=== PATIENT | male | born 1945 | race Caucasian/White ===

== ENCOUNTER → 2020-01-10 14:31 | Outpatient (BNVA) | payer MEDICARE, OTHER, SELFPAY | PROVIDERS: PCP Internal Medicine Hematology & Oncology; Visit Provider Urology | DX: N52.9 Male erectile dysfunction, unspecified (principal); C61 Malignant neoplasm of prostate | CPT/HCPCS: 81002; 99212 ==

== ENCOUNTER → 2021-01-10 14:39 | Outpatient (BNVA) | payer MEDICARE, OTHER, SELFPAY | PROVIDERS: PCP Internal Medicine Hematology & Oncology; Visit Provider Urology | DX: N52.9 Male erectile dysfunction, unspecified (principal); C61 Malignant neoplasm of prostate | CPT/HCPCS: Q3014 ==

== ENCOUNTER → 2022-01-07 14:05 | Outpatient (BNVA) | payer MEDICARE, OTHER, SELFPAY | PROVIDERS: PCP Internal Medicine Hematology & Oncology; Visit Provider Urology | DX: C61 Malignant neoplasm of prostate (principal); N52.9 Male erectile dysfunction, unspecified | CPT/HCPCS: 99212 ==

== ENCOUNTER 2024-10-18 13:44 | Outpatient (AMB) | payer MEDICARE, OTHER, SELFPAY ==
--- OUTSIDE RECORDS SUMMARY | 2023-11-03 11:00 | XMS_ITS | Encounter Summary ---
Author Name [facility] [place] Organization [facility] [place] [place] Address [address] [place] [address] Care Team Providers Care Back Winder Name Role Phone SANDY NAVA Primary Care Provider Unavailjose e Insurance Providers: All historical and current Section Date Range: From patient's date of to the date document was created. This section includes the names of all active insurance providers for the patient. Insurance Provider Type of Coverage Plan Name Start of Policy Coverage End of Policy Coverage Group Number Member ID Insurance Provider's Telephone Number Policy Chua's Name Patient's Relationship to Policy Chua [employer] MEDICARE SUPPLEMEN [facility] Feb 22, 2010 [id number] ANASTASIA LEMOS PATIENT [employer] MED[employer]ARE SUPPLEMEN PRACHI [facility] Feb 22, 2010 [id number] ANASTASIA LEMOS PATIENT SAVE RX PRESCRIPT ION [facility] Mar 25, 2012 [id number] ANASTASIA LEMOS PATIENT Selected Encounter This section includes the information on record at [place] for the Encounter. Date/Time Encounter Type Encounter Description Reason Provider Source Nov 03, 2023 03:00 PM OFFICE O/P EST LOW 20 MIN PODIATRY ICD-10-CM L60.0 Ingrowing JUSTINE Cooper IHJazmin Encounter Template Text not used by VA Assessments - Encounter Diagnoses This section includes the primary and secondary diagnoses documented for the Encounter. Date/Time Primary/Secondary Diagnosis Diagnosis Name Provider Source Nov 03, 2023 03:19 PM PRIMARY Ingrowing nail JUSTINE ALLRED [place] Nov 03, 2023 03:19 PM SECONDARY Pain in left toe(s) JUSTINE ALLRED [place] Nov 03, 2023 03:19 PM SECONDARY Pain in right toe(s) JUSTINE ALLRED [place] Nov 03, 2023 03:19 PM SECONDARY Type 2 diabetes w diabetic peripheral angiopath w/o gangrene JUSTINE ALLRED [place] Plan of Treatment: Future Appointments (+ 6 months) and Future Tests (+/- 45 days) The Plan of Treatment section includes future care activities for the patient from [facility]. This section includes future appointments and future orders which are active, pending or scheduled. Future Appointments This section includes appointments that were scheduled to occur 6 months from the date of the Encounter, up to a maximum of 20 appointments. The data comes from all [facility] facilities. Appointment Date/Time Appointment Type Appointme nt Facility Name Nov 23, 2023 02:30 PM AMBULATORY - PSYCHIATRY [facility] Dec 21, 2023 02:50 PM AMBULATORY - MEDICINE [facility] Dec 22, 2023 03:30 PM AMBULATORY - MEDICINE [facility] Feb 09, 2024 10:30 AM AMBULATORY - MEDICINE [facility] Feb 18, 2024 01:00 PM AMBULATORY - PSYCHIATRY [facility] Feb 28, 2024 02:00 PM AMBULATORY MEDICINE [facility] Apr 04, 2024 01:30 PM AMBULATORY - MEDICINE [facility] Social History: Smoking Status (Most current) and Tobacco Use (All prior to encounter date) This section includes the most current, and the historical, smoking and tobacco- related health factors from the [place] facility where the Encounter took place. Current Smoking Status This section includes the most current smoking, or tobacco-related health factor, from the [place] facility where the Encounter took place. Date/Time Current Smoking Status Comment Sarahy watson May 26, 2023 02:00 PM VA-TOBACCO FORMER USER [place] Tobacco Use History This section includes a history of the smoking, or tobacco-related health factors, that were collected on or before the date of the Encounter. The data comes from the [place] facility where the Encounter took place. Date/Time Smoking Status/Tobacco Use Comment F acility May 26, 2023 02:00 PM VA-TOBACCO QUIT 15 YRS OR MORE [facility] Apr 01, 2022 03:30 PM VA-TOBACCO FORMER USER [place] Apr 01, 2022 03:30 PM VA-TOBACCO QUIT 15 YRS OR MORE [place] Apr 04, 2021 02:00 PM VA-TOBACCO FORMER USER [place] Apr 04, 2021 02:00 PM VA-TOBACCO QUIT 15 YRS OR MORE [facility] Apr 04, 2020 02:30 PM VA-TOBACCO FORMER USER [place] Apr 04, 2020 02:30 PM VA-TOBACCO QUIT 15 YRS OR MORE [facility] Mar 06, 2019 02:44 PM VA-TOBACCO FORMER USER [place] Mar 06, 2019 02:44 PM VA-TOBACCO QUIT 15 YRS OR MORE [place] Sep 24, 2017 10:35 AM VA-TOBACCO FORMER USER [place] Sep 24, 2017 10:35 AM VA-TOBACCO QUIT 15 YRS OR MORE [place] Aug 30, 2017 03:05 PM QUIT TOBACCO USE > 7 YEARS AGO [place] June 29, 2016 08:41 AM QUIT TOBACCO USE > 7 YEARS AGO [place] July 10, 2015 01:03 PM QUIT TOBACCO USE > 7 YEARS AGO quit 23 years ago [facility] Apr 18, 2015 01:45 PM QUIT TOBACCO USE 1-7 YEARS AGO [facility] Encounter Notes: All associated encounter notes This section contains the clinical notes associated to the Encounter. Date/Time Encounter Note(s) Provider Source Nov 03, 2023 08:19 AM PODIATRY NOTE: LOCAL TITLE: PODIATRY NOTE STANDARD TITLE: PODIATRY NOTE DATE OF NOTE: NOV 03, 2023@08:19 ENTRY DATE: NOV 03, 2023@08:19:46 AUTHOR: JUSTINE ALLRED EXP COSIGNER: URGENCY: STATUS: COMPLETED PODIATRY NOTE Has ADDENDA WHEN I INQUIRE ABOUT COVID VACCINE HE DID NOT WISH TO REPLY IN THE AFFIRMATIVE TO HIS DESIRE TO ABSTAIN AND/OR RECEIVE IN THE FUTURE. LAST SEEN FOR TREATMENT: 08/09/2023 S: Pt. is a 78 yo alert WDWN CAUC MALE who IS SEEN for CONTINUED podiatric examination & CARE for treatment of a presenting complaint of painful ingrown toenails. PATIENT HAS BEEN SEEN PREVIOUSLY AT AN OUTSIDE PHYSICIANS OFFICE FOR SURGICAL REMOVAL OF THE MEDIAL & LATERAL LEFT HALLUX NAIL BORDERS WHICH HAVE RE-GROWN. HE DOES RELATE THAT A FEW YEARS AGO HE DOES RECALL TRAUMA TO THE NAIL WITH A HEAVY WEIGHT DROPPING ON THE TOE. Patient has been referred by: DR. NAVA Location of symptoms are: LEFT HALLUX Onset of symptoms has been several months due to this being a recurrent condition that has been exacerbating over the past few weeks. Duration of symptoms is daily with periods of exacerbation and remission. Description of symptoms is of an aching nature. Contributing factors are: shoes and increased activity. PMH: Active problems - Computerized Problem List is the source for the following: *NOTE: REVIEWED ABOVE NOTING NO CHANGES SINCE PREVIOUS VISIT *PLEASE SEE PROBLEM LIST TEMPLATE FOR COMPLETE LIST NEEDED. Family History: Non-contributory Social History: N/A *NOTE: DENIES ANY RECENT CHANGES IN MEDS UPON QUESTIONING TODAY-SEE RECONCILIATION PERFORMED THIS DATE BELOW TOBACCO USE = NONE Allergies:PENICILLIN Previous Surgery/Hospitalization: N/A *NOTE: A1C= 5.6 (LAST TAKEN: 09/2023) FBS= DNP RISK =2 HEIGHT:163.2 lb [74.2 kg] (10/30/2020 10:41) WEIGHT:70 in [177.8 cm] (11/25/2018 08:30) REVIEW OF SYSTEMS: DEFERRED BEING NON-CONTRIBUTORY TO THE CC & I HAVE REVIEWED THE PCP NOTES & PMH WELL. O: DERMATOLOGICAL: Exam reveals skin color & text to be WNL. Temp is diminished warm to cool proximal to distal. There is absence of hair noted. Nails are WNL OTHER THAN THE LEFT HALLUX WHICH REVEALS BOTH MEDIAL AND LATERAL NAIL BORDERS HAVE RECURRED IN A SEVERE INCURVATED POSITION and he has also requested care for all nails today. There are no superficial-painful hyperkeratotic lesions noted at this time. There are no rashes, ulcers, indurations or nodules noted. VASCULAR: Exam reveals DP pulses to be absent non-palpable bilateral & PT PULSES ARE +2 equal & symmetrical bilateral. CFT is >3 sec x 10. There are no superficial varices noted and there is no edema noted. MUSCULOSKELETAL: Exam reveals muscle strength and tone to be equal & symmetrical bilaterally & WNL for an individual of this age and present physical-medical condition. There is pain free ROM at all joints distal to and including the ankle. THERE ARE NO APPARENT BONY ABNORMALITIES NOTED AT THIS TIME. NEUROLOGICAL: Exam reveals S/D, vibratory, light touch & proprioception sensations to be equal & symmetrical bilaterally & diminished for an individual of this age and present physical-medical status. Protective sensation utilizing a Hancock-Pablo lOg monofilament is 10/10 bilateral. 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 P: Treatment consists of TRIMMING-reduction of all nails via manual & electric means with excision of the offending nail borders and CURETTING THE NAIL GROOVES AND HE REMAINS VERY PLEASED WITH THE END RESULT AND IS PLEASED TO BE SEEN FOR FOLLOW-UP CARE. All care rendered without complications & the patient is progressing well after podiatric care this date and will be scheduled for periodic podiatric care in an attempt to prevent future complications. Treatment by a non-professional could be extremely hazardous to the patient's wellbeing due to the underlying medical conditions. RTC:( 12/21 @3:30pm )will be away in february and would liek a special appt late january *DISCUSSED NEW PROTOCOLS AND CALLED LEV TODAY FOR RESCHEDULING I DISCUSSED THE FINDINGS & PLAN WITH PATIENT (UNCHANGED SINCE PREVIOUS VISIT) & PATIENT AGREES AND UNDERSTANDS PLAN-RECEIVED MIRROR Medication Reconciliation: PERFORMED TODAY - SEE BELOW. Outpatient: Has the patient been taking medications as documented in the EMLR? YES: The patient has been taking medications as documented in the EMLR. Essential Medication List for Review used to complete this medication reconciliation. INCLUDED IN THIS LIST: Alphabetical list of active outpatient prescriptions dispensed from this [place] (local) and dispensed from another [place] or [facility]D facility (remote) as well as inpatient orders (local, pending and active), local clinic medications, locally documented non-VA medications, and local prescriptions that have or been discontinued in the past 90 days. - All changes in medications, including all non-VA/Herbal/OTC medications were entered into CPRS. - If there were any medications the patient should no longer take, they were discontinued. - The patient/caregiver was instructed to update this list, discard old lists, and take this list to the next appointment, whether with a VA or non-VA provider. JLV Link Data on this list may not be complete. Please check JLV. Allergies/ADRs (Tool #5) FACILITY ALLERGY/ADR -------- No Remote Allergy/ADR Data available for this patient [place] CNT [facility] PENICILLIN Med Recon [facility] (Tool #1) INCLUDED IN THIS LIST: Alphabetical list of active outpatient prescriptions dispensed from this [place] (local) and dispensed from another [place] or [facility] facility (remote) as well as inpatient orders (local pending and active), local clinic medications, locally documented non-VA medications, and local prescriptions that have or been discontinued in the past 90 days. Non-VA Meds Last Documented On: Apr 26, 2014 NOTE The display of VA prescriptions dispensed from another [place] or [facility] facility (remote) is limited to active outpatient prescription entries matched to National Drug File at the originating site and may not include some items such as investigational drugs, compounds, etc. NOT INCLUDED IN THIS LIST: Medications self-entered by the patient into personal health records (i.e. [employer]) are NOT included in this list. Non-VA medications documented outside this [place], remote inpatient orders (regardless of status) and remote clinic medications are NOT included in this list. The patient and provider must always discuss medications the patient is taking, regardless of where the medication was dispensed or obtained. OUTPT CARBAMIDE PEROXIDE 6.5% OTIC SOLN (Status = ) INSTILL 5 DROPS INTO THE AFFECTED EAR(S) ONCE DAILY FOR EAR WAX BLOCKAGE USE FOR 5 DAYS Rx# [id number] Last Released: 05/21/23 Qty/Days Supply: Rx Expiration Date: 08/15/23 Refills Remainin Indication: FOR EAR WAX BLOCKAGE OUTPT SERTRALINE HCL 100MG TAB (Status = Active) TAKE ONE AND ONE-HALF TABLETS BY MOUTH ONCE DAILY FOR PTSD AND DEPRESSION Rx# [id number] Last Released: 10/20/23 Qty/Days Supply: Rx Expiration Date: 03/30/24 Refills Remainin Indication: FOR POSTTRAUMATIC STRESS SYNDROME OUTPT TRAZODONE HCL 50MG TAB (Status = Active) TAKE ONE AND ONE-HALF TABLETS BY MOUTH AT BEDTIME NEEDED FOR INSOMNIA Rx# [id number] Last Released: 10/20/23 Qty/Days Supply: 45 Rx Expiration Date: 03/30/24 Refills Remainin SUPPLIES /mike/ JUSTINE ALLRED DPM [employer] Signed: 11/03/2023 15:20 11/03/2023 ADDENDUM STATUS: COMPLETED future visits: 02/10-time to be determined -possible 2pm & 04/05/2024 time to be determined -usually 3:30pm /mike/ JUSTINE ALLRED DPM [employer] Signed: 11/03/2023 15:46 JUSTINE ALLRED [place]
--- OUTSIDE RECORDS SUMMARY | 2023-11-23 10:30 | XMS_ITS | Encounter Summary ---
Author Name [facility] [place] [place] Organization [place] Address [address] [place] [address] Care Team Providers Care Tire Spotter Name Role Phone SANDY NAVA Primary Care [...] Chua [employer] MEDICARE SUPPLEMEN [facility] Feb 22, 2010 [id number] ANASTASIA LEMOS PATIENT [employer] MEDICARE SUPPLEMEN PRACHI [facility] Feb 22, 2010 [id number] ANASTASIA LEMOS PATIENT SAVE RX PRESCRIPT ION [facility] Mar 25, 2012 [id number] ANASTASIA LEMOS PATIENT Selected Encounter This section includes the information on record at [place] for the Encounter. Date/Time Encounter Type Encounter Description Reason Provider Source Nov 23, 2023 02:30 PM OFFICE O/P EST MOD 30 MIN [facility] - IND ICD-10-CM F43.12 Post-traumatic stress disorder, chronic ARTI JALLOH [facility] Encounter Template Text not used by VA Assessments - Encounter Diagnoses This section includes the primary and secondary diagnoses documented for the Encounter. Date/Time Primary/Secondary Diagnosis Diagnosis Name Provider Source Nov 23, 2023 02:54 PM PRIMARY Post-traumatic stress disorder, chronic LOUISE JALLOH [place] Plan of Treatment: Future Appointments (+ 6 months) and Future Tests (+/- 45 days) The Plan of Treatment section includes future care activities for the patient [facility] [place] [facility] This section includes future appointments and future orders which are active, pending or scheduled. Future Appointments This section includes appointments that were scheduled to occur 6 months from the date of the Encounter, up to a maximum of 20 appointments. The data comes from all [place] treatment facilities. Appointment Date/Time Appointment Type Appointme nt Facility Name Dec 21, 2023 02:50 PM AMBULATORY - MEDICINE [facility] Dec 22, 2023 03:30 PM AMBULATORY - MEDICINE [facility] Feb 09, 2024 10:30 AM AMBULATORY - MEDICINE [facility] Feb 18, 2024 01:00 PM AMBULATORY - PSYCHIATRY [facility] Feb 28, 2024 02:00 PM AMBULATORY - MEDICINE [facility] Apr 04, 2024 01:30 PM [facility] Social History: Smoking Status (Most current) and Tobacco Use (All prior to encounter date) This section includes the most current, and the historical, smoking and tobacco- related health factors from the [place] facility where the Encounter took place. Current Smoking Status This section includes the most current smoking, or tobacco-related health factor, from the [place] facility where the Encounter took place. Date/Time Current Smoking Status Comment Sarahy watson May 26, 2023 02:00 PM VA-TOBACCO FORMER USER [place] Tobacco Use History This section includes a history of the smoking, or tobacco-related health factors, that were collected on or before the date of the Encounter. The data comes from the [place] facility where the Encounter took place. Date/Time Smoking Status/Tobacco Use Comment F acility May 26, 2023 02:00 PM VA-TOBACCO QUIT 15 YRS OR MORE [place] Apr 01, 2022 03:30 PM VA-TOBACCO FORMER USER [place] Apr 01, 2022 03:30 PM VA-TOBACCO QUIT 15 YRS OR MORE [place] Apr 04, 2021 02:00 PM VA-TOBACCO FORMER USER [place] Apr 04, 2021 02:00 PM VA-TOBACCO QUIT 15 YRS OR MORE [place] Apr 04, 2020 02:30 PM VA-TOBACCO FORMER USER [place] Apr 04, 2020 02:30 PM VA-TOBACCO QUIT 15 YRS OR MORE [place] Mar 06, 2019 02:44 PM VA-TOBACCO FORMER USER [place] Mar 06, 2019 02:44 PM VA-TOBACCO QUIT 15 YRS OR MORE [place] Sep 24, 2017 10:35 AM VA-TOBACCO FORMER USER [place] Sep 24, 2017 10:35 AM VA-TOBACCO QUIT 15 YRS OR MORE [place] Aug 30, 2017 03:05 PM QUIT TOBACCO USE > 7 YEARS AGO [place] June 29, 2016 08:41 AM QUIT TOBACCO USE > 7 YEARS AGO [place] July 10, 2015 01:03 PM QUIT TOBACCO USE > 7 YEARS AGO quit 23 years ago [place] Apr 18, 2015 01:45 PM QUIT TOBACCO USE 1-7 YEARS AGO [place] Encounter Notes: All associated encounter notes This section contains the clinical notes associated to the Encounter. Date/Time Encounter Note(s) Provider Source Nov 23, 2023 02:35 PM PSYCHIATRY NOTE: LOCAL TITLE: PSYCHIATRY NOTE STANDARD TITLE: PSYCHIATRY NOTE DATE OF NOTE: NOV 23, 2023@14:35 ENTRY DATE: NOV 23, 2023@14:35:46 AUTHOR: LOUISE JALLOH EXP COSIGNER: URGENCY: STATUS: COMPLETED 30 min for encounter, including chart review, interview, charting chart reviewed Pt stable, improved. Good mood. Denies depression. PTSD sx's/irritability improved. Affect brightens appropriately, full range. He denies SI and violent ideation. No h/o psychotic symptoms. Well organized. No paranoid or delusional content presented. Less obsessive quality. Future oriented. Cognitive exam grossly intact/unchanged. Good self-care. No slowing noted. Has interests, maintain home. Again, going to his home on a [place] in [facility]. Sleep remains improved w trazodone. again, another discussion -- pt again satisfied w response to current psych meds --he feels the meds allow significant improvement with mood and PTSD symptoms, and he again wants to continue the meds the same Denies med side effects. Denies next-day sedation. Reports compliance w psychiatric meds Denies alcohol abuse -- reports about [address] on [address]; denies street drugs; takes cbd oil Lives with his -- pt states she is generally supportive; pt keeps busy by working around the house -- enjoys this; he previously reported that he has informal Vet grp he meets with to talk regularly, wh he enjoys Active problems - Computerized Problem List is the source for the followin. Seborrheic Dermatitis (SCT 16509435) 2. Exsmoker 3. Full thickness rotator cuff tear 4. Colonoscopy Screening 5. Type 2 diabetes mellitus controlled by diet 6. Primary Care Physician 7. Insomnia 8. Erectile dysfunction (SNOMED CT 571522614) 9. Depression 10. Chronic post-traumatic stress disorder (SNOMED CT 900968753) 11. Hyperlipidemia 12. Skin Disorder-Psoriasis/Rosacea 13. History of alcohol abuse 14. Anxiety disorder (SNOMED CT 337477177) Active Outpatient Medications (including Supplies): Active Outpatient Medications Status ======= 1) SERTRALINE HCL 100MG TAB TAKE ONE AND ONE-HALF ACTIVE TABLETS BY MOUTH ONCE DAILY FOR PTSD AND DEPRESSION 2) TRAZODONE HCL 50MG TAB TAKE ONE AND ONE-HALF TABLETS ACTIVE BY MOUTH AT BEDTIME NEEDED FOR INSOMNIA PAST PSYCH MED HX: zoloft -- long period on this remeron -- did not tolerate effexor -- WRAY, N prazosin -- dizzy IMP: dsm-5 PTSD, chronic -- 100% sc Unspecified depressive disorder h/o alcohol use disorder -- reports limited use PLAN: Performed careful risk assessment. See C-SSRS 07/2023 - same today The pt is probably low risk for suicide or violence -- the patient denied suicidal and violent ideation, but the Veterans Crisis Line information and number were reviewed w patient as a precaution. The patient also understands to call 911 or to go to ER in the event of an emergency. encourage to [facility] -- for coping w stress, and for PTSD and anger management Previously offered pt anger managemnt grp in this clinic -- pt did not feel he need this We again reviewed the alcohol patient's alcohol use, which remains limited but increased compared to the last visit --I encouraged the patient to limit his alcohol use or abstain. I again offered the patient HUONG grp in clinic or the HUONG clinic but he does not feel he needs this; encourage AA/sponsor; pt also has HUONG grp available in [facility]; again, pt does not want to try naltrexone or campral -- he does not feel he needs these CONTINUE ZOLOFT 150 MG DAILY for ptsd/depression/anxiety -- good response and well tolerated; the patient did not want to consider different antidepressant trial to try to further reduce PTSD symptoms. He is satisfied with the response to Zoloft. CONTINUE TRAZODONE 75 MG QHS PRN INSOMNIA -- usually good response for sleep; patient understands he may take less, if he does not need the full dose; patient reports nightmares are much less frequent with trazodone consider prazosin for ptsd/nightmares--patient previously did not want to try prazosin again for nightmares due to getting dizzy w it in past -- although if he wants another trial he will call me The discussion with patient about treatments including medications involved shared decision making. The patient was educated about the rationale and plan for the psychiatric medications. Medication instructions were reviewed with the patient. Alternatives to treatment were discussed with the patient. The side effect profile of the psychiatric medications was reviewed with the patient. This also included discussion of potential drug interactions associated with psychiatric medication. The patient discussed/verbalized back the understanding of the medication, side effects, and the plan/instructions, and the patient asked good questions. The patient demonstrated reasonable understanding of the medication side effects and the above-mentioned issues. The benefits of psychiatric medications outweigh risks for this patient. The patient consents to medication treatment. I asked the patient to call me or to come to open access if the patient does not like the effect of psychiatric medication or if has side effects with psychiatric medication. The risk of priapism with trazodone was previously reviewed with the patient. See prior notes by me I previously reviewed the sleep-walking hx w pt -- I educated pt re this -- I advised the pt to make sleeping area safe in case sleep walks -- but previously on further review this behavior sounds more like related to nightmares, which are improved rtc 3 mo scheduled med review ; rtc sooner thr open access prn by calling; I also encouraged pt to call if needed pt previously declined alpha stim trial for anxiety/ptsd offered considering PTSD unit at some point - pt declines this Medication Reconciliation: Outpatient: Has the patient been taking medications as documented in the EMLR? YES: The patient has been taking medications as documented in the EMLR. Essential Medication List for Review used to complete this medication reconciliation. INCLUDED IN THIS LIST: Alphabetical list of active outpatient prescriptions dispensed from this VA (local) and dispensed from another VA or DoD facility (remote) as well as [...] whether with a VA or non-VA provider. Alcohol Use Screen (AUDIT-C): Alcohol Screen: SCREEN FOR ALCOHOL (AUDIT-C) An alcohol screening test (AUDIT-C) was negative (score=3). 1. How often did you have a drink containing alcohol in the past year? Consider a drink to be a 12 ounce can or bottle of regular beer, 8 ounces of malt liquor, a 5 ounce glass of table wine, or a 1.5 ounce shot of liquor (like scotch, gin, or vodka). Two to three times per week 2. How many drinks containing alcohol did you have on a typical day when you were drinking in the past year? One or two drinks 3. How often did you have six or more drinks on one occasion in the past year? Never /es/ LOUISE JALLOH MD STAFF PSYCHIATRIST Signed: 11/23/2023 14:54 LOUISE JALLOH
--- OUTSIDE RECORDS SUMMARY | 2023-12-22 11:30 | XMS_ITS | Encounter Summary ---
Author Name [facility] ([place] Organization [facility] [place] Address [address] [place] [address] Care Team Providers Care Ham Boner Name Role Phone SANDY NAVA Primary Care [...] Chua [employer] MED[employer] SUPPLEMEN [facility] Feb 22, 2010 [id number] ANASTASIA LEMOS PATIENT [employer] SUPPLEMEN PRACHI [facility] Feb 22, 2010 [id number] ANASTASIA LEMOS PATIENT SAVE RX PRESCRIPT ION [facility] Mar 25, 2012 [id number] ANASTASIA LEMOS PATIENT Selected Encounter This section includes the information on record at [place] for the Encounter. Date/Time Encounter Type Encounter Description Reason Provider Source Dec 22, 2023 03:30 PM OFFICE O/P EST LOW 20 MIN PODIATRY ICD-10-CM L60.0 Ingrowing nail JUSTINE ALLRED IHJazmin Encounter Template Text not used by VA Assessments - Encounter Diagnoses This section includes the primary and secondary diagnoses documented for the Encounter. Date/Time Primary/Secondary Diagnosis Diagnosis Name Provider Source Dec 22, 2023 04:18 PM PRIMARY Ingrowing nail JUSTINE ALLRED [place] Dec 22, 2023 04:18 PM SECONDARY Pain in left toe(s) JUSTINE ALLRED [place] Dec 22, 2023 04:18 PM SECONDARY Pain in right toe(s) JUSTINE ALLRED [place] Dec 22, 2023 04:18 PM SECONDARY Type 2 diabetes w diabetic peripheral angiopath w/o gangrene JUSTINE ALLRED [place] Plan of Treatment: Future Appointments (+ 6 months) and Future Tests (+/- 45 days) The Plan of Treatment section includes future care activities for the patient from all [facility] This section includes future appointments and future orders which are active, pending or scheduled. Future Appointments This section includes appointments that were scheduled to occur 6 months from the date of the Encounter, up to a maximum of 20 appointments. The data comes from all [facility]. Appointment Date/Time Appointment Type Appointme nt Facility Name Feb 09, 2024 10:30 AM AMBULATORY - MEDICINE [facility] Feb 18, 2024 01:00 PM AMBULATORY - PSYCHIATRY [facility] Feb 28, 2024 02:00 PM AMBULATORY - MEDICINE [facility] [place] [facility] Apr 04, 2024 01:30 PM AMBULATORY - MEDICINE [facility] May 26, 2024 11:30 AM AMBULATORY - PSYCHIATRY [facility] Jun 02, 2024 01:00 PM [facility] [place] [facility] Jun 07, 2024 08:00 AM AMBULATORY - MEDICINE [facility] [place] [facility] Jun 13, 2024 01:30 PM AMBULATORY - MEDICINE [facility] Jun 13, 2024 02:00 PM AMBULATORY - MEDICINE [facility] Social History: Smoking Status (Most current) and Tobacco Use (All prior to encounter date) This section includes the most current, and the historical, smoking and tobacco- related health factors from the [place] facility where the Encounter took place. Current Smoking Status This section includes the most current smoking, or tobacco-related health factor, from the [place] facility where the Encounter took place. Date/Time Current Smoking Status Mallory watson May 26, 2023 02:00 PM VA-TOBACCO FORMER USER [place] Tobacco Use History This section includes a history of the smoking, or tobacco-related health factors, that were collected on or before the date of the Encounter. The data comes from the [place] facility where the Encounter took place. Date/Time Smoking Status/Tobacco Use Comment F acility May 26, 2023 02:00 PM VA-TOBACCO QUIT 15 YRS OR MORE [place] Apr 01, 2022 03:30 PM VA-TOBACCO FORMER USER [place] Apr 01, 2022 03:30 PM VA-TOBACCO QUIT 15 YRS OR MORE [place] Apr 04, 2021 02:00 PM VA-TOBACCO FORMER USER [place] Apr 04, 2021 02:00 PM VA-TOBACCO QUIT 15 YRS OR MORE [place] Apr 04, 2020 02:30 PM VA-TOBACCO FORMER USER [place] Apr 04, 2020 02:30 PM VA-TOBACCO QUIT 15 YRS OR MORE [place] Mar 06, 2019 02:44 PM VA-TOBACCO FORMER USER [place] Mar 06, 2019 02:44 PM VA-TOBACCO QUIT 15 YRS OR MORE [place] Sep 24, 2017 10:35 AM VA-TOBACCO FORMER USER [place] Sep 24, 2017 10:35 AM VA-TOBACCO QUIT 15 YRS OR MORE [place] Aug 30, 2017 03:05 PM QUIT TOBACCO USE > 7 YEARS AGO [place] June 29, 2016 08:41 AM QUIT TOBACCO USE > 7 YEARS AGO [place] July 10, 2015 01:03 PM QUIT TOBACCO USE > 7 YEARS AGO quit 23 years ago [place] Apr 18, 2015 01:45 PM QUIT TOBACCO USE 1-7 YEARS AGO [place] Encounter Notes: All associated encounter notes This section contains the clinical notes associated to the Encounter. Date/Time Encounter Note(s) Provider Source Dec 22, 2023 11:28 AM PODIATRY NOTE: LOCAL TITLE: PODIATRY NOTE STANDARD TITLE: PODIATRY NOTE DATE OF NOTE: DEC 22, 2023@11:28 ENTRY DATE: DEC 22, 2023@11:28:24 AUTHOR: JUSTINE ALLRED EXP COSIGNER: URGENCY: STATUS: COMPLETED WHEN I INQUIRE ABOUT COVID VACCINE HE DID NOT WISH TO REPLY IN THE AFFIRMATIVE TO HIS DESIRE TO ABSTAIN AND/OR RECEIVE IN THE FUTURE. LAST SEEN FOR TREATMENT: 11/03/2023 S: Pt. is a 78 yo alert [...] present physical-medical status. Protective sensation utilizing a [place]-Pablo lOg monofilament is 10/10 bilateral. A: Clinical [...] due to the underlying medical conditions. RTC:( 02/08@ 10:30am & 04/04/@1:30pm * 06/07 ? ) *DISCUSSED NEW PROTOCOLS AND CALLED LEV TODAY FOR RESCHEDULING I DISCUSSED THE FINDINGS & PLAN WITH PATIENT (UNCHANGED SINCE PREVIOUS VISIT) & PATIENT AGREES AND UNDERSTANDS PLAN-RECEIVED MIRROR DISCUSSED THE CURRENT EVENTS AND HE INFORMED ME OF A PROBLEM WITH HALLOWEEN CVANDY THAT IS ACTUALLY AND EXPANDING PAPER TOWEL TO CAUSE CHOKING Medication Reconciliation: PERFORMED TODAY - SEE BELOW. Outpatient: Has the patient been taking medications as documented in the EMLR? YES: The patient has been taking medications as documented in the EMLR. Essential Medication List for Review used to complete this medication reconciliation. INCLUDED IN THIS LIST: Alphabetical list of active outpatient prescriptions dispensed from this VA (local) and dispensed from another [place] or DoD facility (remote) as well as [...] Remote Allergy/ADR Data available for this patient [place] [facility] [place] Med Recon [facility] (Tool #1) INCLUDED IN THIS LIST: Alphabetical list of active outpatient prescriptions dispensed from this ME (local) and dispensed from another [place] or DoD facility (remote) as well as inpatient orders (local pending and active), local clinic medications, locally documented non-VA medications, and local prescriptions that have or been discontinued in the past 90 days. Non-VA Meds Last Documented On: Apr 26, 2014 NOTE The display of VA prescriptions dispensed from another VA or DoD facility (remote) is limited to active outpatient prescription entries matched to National Drug File at the originating site and may not include some items such as investigational drugs, compounds, etc. NOT INCLUDED IN THIS LIST: Medications self-entered by the patient into personal health records (i.e. [employer]) are NOT included in this list. Non-VA medications documented outside this [place], remote inpatient orders (regardless of status) and [...] WAX BLOCKAGE USE FOR 5 DAYS Rx# [id number] Last Released: 05/21/23 Qty/Days Supply: Rx Expiration Date: 08/15/23 Refills Remainin Indication: FOR EAR WAX BLOCKAGE OUTPT SERTRALINE HCL 100MG TAB (Status = Active) TAKE ONE AND ONE-HALF TABLETS BY MOUTH ONCE DAILY FOR PTSD AND DEPRESSION Rx# [id number] Last Released: 10/20/23 Qty/Days Supply: Rx Expiration Date: 03/30/24 Refills Remainin Indication: FOR POSTTRAUMATIC STRESS SYNDROME OUTPT TRAZODONE HCL 50MG TAB (Status = Active) TAKE ONE AND ONE-HALF TABLETS BY MOUTH AT BEDTIME NEEDED FOR INSOMNIA Rx# [id number] Last Released: 10/20/23 Qty/Days Supply: Rx Expiration Date: 03/30/24 Refills Remainin SUPPLIES /mike/ JUSTINE ALLRED DPM PROGRESS DEVELOPER Signed: 11/03/2023 15:20 11/03/2023 ADDENDUM STATUS: COMPLETED future visits: 02/10-time to be determined -possible 2pm & 04/05/2024 time to be determined -usually 3:30pm /aby ALLRED DPM PROGRESS DEVELOPER Signed: 11/03/2023 15:46 /aby ALLRED DPM PROGRESS DEVELOPER Signed: 12/22/2023 16:19 JUSTINE ALLRED [place]
--- OUTSIDE RECORDS SUMMARY | 2024-02-09 06:30 | XMS_ITS | Encounter Summary ---
Author Name [facility] [place] Organization [place] Address [address] [place] [address] Care Team Providers Care Patrol Judge Name Role Phone SANDY NAVA Primary Care [...] Chua [employer] SUPPLEMEN PRACHI [facility] Feb 22, 2010 [id number] ANASTASIA LEMOS PATIENT [employer] SUPPLEMEN PRACHI [facility] Feb 22, 2010 [id number] 85 ANASTASIA LEMOS PATIENT SAVE RX PRESCRIPT ION [facility] Mar 25, 2012 [id number] 85 ANASTASIA LEMOS PATIENT Selected Encounter This section includes the information on record at [place] for the Encounter. Date/Time Encounter Type Encounter Description Reason Provider Source Feb 09, 2024 10:30 AM OFFICE O/P EST MOD 30 MIN PODIATRY ICD-10-CM L60.0 Ingrowing nail JUSTINE ALLRED IHJazmin Encounter Template Text not used by VA Assessments - Encounter Diagnoses This section includes the primary and secondary diagnoses documented for the Encounter. Date/Time Primary/Secondary Diagnosis Diagnosis Name Provider Source Feb 09, 2024 12:17 PM PRIMARY Ingrowing nail JUSTINE ALLRED [place] Feb 09, 2024 12:17 PM SECONDARY Pain in left toe(s) JUSTINE ALLRED Feb 09, 2024 12:17 PM SECONDARY Pain in right toe(s) JUSTINE ALLRED Plan of Treatment: Future Appointments (+ 6 months) and Future Tests (+/- 45 days) The Plan of Treatment section includes future care activities for the patient [facility] [place] [facility]. This section includes future appointments and future orders which are active, pending or scheduled. Future Appointments This section includes appointments that were scheduled to occur 6 months from the date of the Encounter, up to a maximum of 20 appointments. The data comes from all [facility] facilities. Appointment Date/Time Appointment Type Appointme nt Facility Name Feb 18, 2024 01:00 PM AMBULATORY - PSYCHIATRY [facility] Feb 28, 2024 02:00 PM AMBULATORY - MEDICINE [facility] [place] [facility] Apr 04, 2024 01:30 PM AMBULATORY - MEDICINE [facility] May 26, 2024 11:30 AM AMBULATORY - PSYCHIATRY [facility] Jun 02, 2024 01:00 PM AMBULATORY - REHAB MEDICIN E [place] [facility] Jun 07, 2024 08:00 AM AMBULATORY - MEDICINE CT C [place]TRL [place] [facility] Jun 13, 2024 01:30 PM AMBULATORY - MEDICINE [facility] Jun 13, 2024 02:00 PM AMBULATORY - MEDICINE [facility] June 27, 2024 02:50 PM AMBULATORY - MEDICINE CT C [place]TRL [place] [facility] June 29, 2024 01:00 PM AMBULATORY - REHAB MEDICIN E [place] [facility] Jul 25, 2024 03:00 PM [facility] Jul 27, 2024 01:00 PM AMBULAT[facility] - [facility] Social History: Smoking Status (Most current) and Tobacco Use (All prior to encounter date) This section includes the most current, and the historical, smoking and tobacco- related health factors from the [place] facility where the Encounter took place. Current Smoking Status This section includes the most current smoking, or tobacco-related health factor, from the [place] facility where the Encounter took place. Date/Time Current Smoking Status Comment Sarahy ity May 26, 2023 02:00 PM VA-TOBACCO FORMER USER [place] Tobacco Use History This section includes a history of the smoking, or tobacco-related health factors, that were collected on or before the date of the Encounter. The data comes from the [facility] where the Encounter took place. Date/Time Smoking Status/Tobacco Use Comment F acility May 26, 2023 02:00 PM VA-TOBACCO QUIT 15 YRS OR MORE [place] Apr 01, 2022 03:30 PM VA-TOBACCO FORMER USER [place] Apr 01, 2022 03:30 PM VA-TOBACCO QUIT 15 YRS OR MORE [place] Apr 04, 2021 02:00 PM VA-TOBACCO FORMER USER [place] Apr 04, 2021 02:00 PM VA-TOBACCO QUIT 15 YRS OR MORE [place] Apr 04, 2020 02:30 PM VA-TOBACCO FORMER USER [place] Apr 04, 2020 02:30 PM VA-TOBACCO QUIT 15 YRS OR MORE [place] Mar 06, 2019 02:44 PM VA-TOBACCO FORMER USER [place] Mar 06, 2019 02:44 PM VA-TOBACCO QUIT 15 YRS OR MORE [place] Sep 24, 2017 10:35 AM VA-TOBACCO FORMER USER [place] Sep 24, 2017 10:35 AM VA-TOBACCO QUIT 15 YRS OR MORE [place] Aug 30, 2017 03:05 PM QUIT TOBACCO USE > 7 YEARS AGO [place] June 29, 2016 08:41 AM QUIT TOBACCO USE > 7 YEARS AGO [place] July 10, 2015 01:03 PM QUIT TOBACCO USE > 7 YEARS AGO quit 23 years ago [place] Apr 18, 2015 01:45 PM QUIT TOBACCO USE 1-7 YEARS AGO [place] Encounter Notes: All associated encounter notes This section contains the clinical notes associated to the Encounter. Date/Time Encounter Note(s) Provider Source Feb 09, 2024 12:18 PM PODIATRY NOTE: LOCAL TITLE: PODIATRY PAVE FOOT EXAM STANDARD TITLE: PODIATRY NOTE DATE OF NOTE: FEB 09, 2024@12:18 ENTRY DATE: FEB 09, 2024@12:18:30 AUTHOR: JUSTINE ALLRED COSIGNER: URGENCY: STATUS: COMPLETED PAVE FOOT EXAM A foot risk level was completed. The following risk level was identified for this patient: +POD RISK SCORE+ * --LEVEL 1 - (LOW RISK)* Normal sensation and circulation EITHER foot deformity OR minor foot infection No ulceration, nor history of ulceration, osteomyelitis, or amputation No Charcot joint disease with foot deformity No chronic kidney disease, or less than CKD 4 LEVEL 1 FOOT EDUCATION: 1. Advised patient not to walk barefoot. Instructed the patient to pay close attention to the style and fit of shoes. 2. Explained the importance of daily foot checks. Explained that loss of sensation leads to callouses. Callouses break down, which result in ulcers that may lead to gangrene and amputation. 3. Stressed the importance of daily foot hygiene. Warm (not hot) bathing of the feet, complete drying and thorough inspection for changes in the condition of the skin constitute daily foot care. Demonstrated how to do a thorough foot check. 4. Emphasized the use of clean, non-restrictive socks/stockings and well fitting shoes. 5. Stressed the importance of immediate follow-up of any foot injuries or ulcers. Explained that he/she should be non-weight bearing whenever there are lesions on the foot, to prevent cellular damage. Level of Understanding: Good /mike/ JUSTINE ALLRED DPM PATTERN MECHANIC Signed: 02/09/2024 12:18 JUSTINE ALLRED [place] Feb 09, 2024 07:45 AM PODIATRY NOTE: LOCAL TITLE: PODIATRY NOTE STANDARD TITLE: PODIATRY NOTE DATE OF NOTE: FEB 09, 2024@07:45 ENTRY DATE: FEB 09, 2024@07:45:19 AUTHOR: JUSTINE ALLRED EXP COSIGNER: URGENCY: STATUS: COMPLETED WHEN I INQUIRE ABOUT COVID VACCINE HE DID NOT WISH TO REPLY IN THE AFFIRMATIVE TO HIS DESIRE TO ABSTAIN AND/OR RECEIVE IN THE FUTURE. LAST SEEN FOR TREATMENT: 12/22/2023 S: Pt. is a 78 yo alert [facility] MALE who IS SEEN for CONTINUED podiatric [...] present physical-medical status. Protective sensation utilizing a [place]-Pablo lOg monofilament is 10/10 bilateral. *NOTE: *YEARLY COMPLETE PAVE EXAM PERFORMED TODAY - SEE BELOW. 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 DESCRIBES A NEW AREA OF PAIN -DISTAL LEFT HALLUX NOT-RELATED TO THE NAIL PLATE AND UPON PALPATION NOTED DISCOMFORT BUT DUE TO LACK OF FAT PAD AND NOT THE NAIL: I PROVIDED A TUBE FOAM ACCOMMODATION FOR THIS SITE HE MAY BE INCURRING SHOE PRESSURE WHILE WALKING P: Treatment consists of TRIMMING-reduction of all [...] due to the underlying medical conditions. RTC:( 04/04 & 06/13 @1:30pm ) *DISCUSSED NEW PROTOCOLS AND CALLED LEV [...] this VA (local) and dispensed from another [place] or DoD facility (remote) as well as [...] Remote Allergy/ADR Data available for this patient [facility] [place] [place] [facility] [place] Med Recon [employer] (Tool #1) INCLUDED IN THIS LIST: Alphabetical [...] the patient into personal health records (i.e. [employer]) are NOT included in this list. Non-VA medications documented outside this [place], remote inpatient orders (regardless of status) and remote clinic medications are NOT included in this list. The patient and provider must always discuss medications the patient is taking, regardless of where the medication was dispensed or obtained. OUTPT SERTRALINE HCL 100MG TAB (Status = Active) TAKE ONE AND ONE-HALF TABLETS BY MOUTH ONCE DAILY FOR PTSD AND DEPRESSION Rx# [id number] Last Released: 10/20/23 Qty/Days Supply: [id number] Rx Expiration Date: 03/30/24 Refills Remainin Indication: FOR POSTTRAUMATIC STRESS SYNDROME OUTPT TRAZODONE HCL 50MG TAB (Status = Active) TAKE ONE AND ONE-HALF TABLETS BY MOUTH AT BEDTIME NEEDED FOR INSOMNIA Rx# [id number] Last Released: 10/20/23 Qty/Days Supply: [id number] Rx Expiration Date: 03/30/24 Refills Remainin SUPPLIES /mike/ JUSTINE ALLRED DPM PATTERN MECHANIC Signed: 02/09/2024 12:18 JUSTINE ALLREDFIELD
--- OUTSIDE RECORDS SUMMARY | 2024-02-18 09:00 | XMS_ITS | Encounter Summary ---
Author Name [facility] [place] Organization [facility] [place] [place] Address [address] [place] [address] Care Team Providers Care Field Crew Chief Name Role Phone SANDY NAVA Primary Care [...] Chua [employer] SUPPLEMEN [facility] Feb 22, 2010 NEEW [id number] ANASTASIA LEMOS PATIENT [employer] SUPPLEMEN PRACHI [facility] Feb 22, 2010 [id number] ANASTASIA LEMOS PATIENT SAVE RX PRESCRIPT ION [facility] Mar 25, 2012 [id number] ANASTASIA LEMOS PATIENT Selected Encounter This section includes the information on record at [place] for the Encounter. Date/Time Encounter Type Encounter Description Reason Provider Source Feb 18, 2024 01:00 PM OFFICE O/P EST MOD 30 MIN [facility] - IND ICD-10-CM F43.12 Post-traumatic stress disorder, chronic ARTI JALLOH IHE Encounter Template Text not used by VA Assessments - Encounter Diagnoses This section includes the primary and secondary diagnoses documented for the Encounter. Date/Time Primary/Secondary Diagnosis Diagnosis Name Provider Source Feb 18, 2024 01:31 PM PRIMARY Post-traumatic stress disorder, chronic LOUISE JALLOH Plan of Treatment: Future Appointments (+ 6 months) and Future Tests (+/- 45 days) The Plan of Treatment section includes future care activities for the patient [facility] [place] [facility] This section includes future appointments and future orders which are active, pending or scheduled. Future Appointments This section includes appointments that were scheduled to occur 6 months from the date of the Encounter, up to a maximum of 20 appointments. The data comes from all [place] treatment facilities. Appointment Date/Time Appointment Type Appointme nt Facility Name Feb 28, 2024 02:00 PM AMBULATORY - MEDICINE [facility] [place] [facility] Apr 04, 2024 01:30 PM [facility] May 26, 2024 11:30 AM AMBULATORY - PSYCHIATRY [facility] Jun 02, 2024 01:00 PM AMBULATORY - [facility]HAB [facility]ICIN [facility] [place] [facility] Jun 07, 2024 08:00 AM AMBULATORY - MEDICINE [facility] [place] [facility] Jun 13, 2024 01:30 PM [facility] Jun 13, 2024 02:00 PM AMBULATORY - MEDICINE [facility] June 27, 2024 02:50 PM AMBULATORY - MEDICINE [facility] [place] [facility] June 29, 2024 01:00 PM AMBULATORY - REHAB MEDICIN [facility] [place] [facility] Jul 25, 2024 03:00 PM AMBULATORY - MEDICINE [facility] Jul 27, 2024 01:00 PM AMBULATORY - REHAB MEDICIN E [facility] [place] [facility] Aug 14, 2024 08:30 AM AMBULATORY - REHAB MEDICIN [facility] [place] [facility] Aug 18, 2024 02:30 PM AMBULATORY - PSYCHIATRY [facility] Social History: Smoking Status (Most current) and Tobacco Use (All prior to encounter date) This section includes the most current, and the historical, smoking and tobacco- related health factors from the [place] facility where the Encounter took place. Current Smoking Status This section includes the most current smoking, or tobacco-related health factor, from the [facility] where the Encounter took place. Date/Time Current Smoking Status Comment Sarahy ity May 26, 2023 02:00 PM VA-TOBACCO FORMER USER [facility] Tobacco Use History This section includes a history of the smoking, or tobacco-related health factors, that were collected on or before the date of the Encounter. The data comes from the [facility] where the Encounter took place. Date/Time Smoking Status/Tobacco Use Comment F acility May 26, 2023 02:00 PM VA-TOBACCO QUIT 15 YRS OR MORE [facility] Apr 01, 2022 03:30 PM VA-TOBACCO FORMER USER [facility] Apr 01, 2022 03:30 PM VA-TOBACCO QUIT 15 YRS OR MORE [facility] Apr 04, 2021 02:00 PM VA-TOBACCO FORMER USER [facility] Apr 04, 2021 02:00 PM VA-TOBACCO QUIT 15 YRS OR MORE [facility] Apr 04, 2020 02:30 PM VA-TOBACCO FORMER USER [facility] Apr 04, 2020 02:30 PM VA-TOBACCO QUIT 15 YRS OR MORE [facility] Mar 06, 2019 02:44 PM VA-TOBACCO FORMER USER [facility] Mar 06, 2019 02:44 PM VA-TOBACCO QUIT 15 YRS OR MORE [facility] Sep 24, 2017 10:35 AM VA-TOBACCO FORMER USER [facility] Sep 24, 2017 10:35 AM VA-TOBACCO QUIT 15 YRS OR MORE [facility] Aug 30, 2017 03:05 PM QUIT TOBACCO USE > 7 YEARS AGO [facility] June 29, 2016 08:41 AM QUIT TOBACCO USE > 7 YEARS AGO [facility] July 10, 2015 01:03 PM QUIT TOBACCO USE > 7 YEARS AGO quit 23 years ago [facility] Apr 18, 2015 01:45 PM QUIT TOBACCO USE 1-7 YEARS AGO [facility] Encounter Notes: All associated encounter notes This section contains the clinical notes associated to the Encounter. Date/Time Encounter Note(s) Provider Source Feb 18, 2024 01:13 PM MENTAL HEALTH MIKIE TMENT PLAN NOTE: LOCAL TITLE: MH TREATMENT PLAN STANDARD TITLE: MENTAL HEALTH TREATMENT PLAN NOTE DATE OF NOTE: FEB 18, 2024@13:13:54 ENTRY DATE: FEB 18, 2024@13:14:20 AUTHOR: LOUISE JALLOH COSIGNER: URGENCY: STATUS: COMPLETED MH TREATMENT PLAN - Jan, @ 01:13PM Visit Date: Jan, @ 13:00 - CWM/SO/STEFANIE/[facility] TECH: LOUISE JALLOH / REJI Silver TREATMENT PLAN: Problem: ptsd/depression Status: ACTIVE Goal: improved ptsd and mood sx's Status: ACTIVE Objective: improved sx's as assessed by pt report, presentation, functioning Status: ACTIVE Intervention: Psych med managaement and encourage psychotherapy Status: ACTIVE Discipline: [facility] Time Frame: PRN Providers: LOUISE JALLOH: PSYCHIATRIST DISCIPLINE: [facility] Entered Treatment: 09/20/2020 @ 02:22PM Review Date: 09/20/2021 Anticipated Discharge: None INTERDISCIPLINARY TEAM: LOUISE JALLOH: PSYCHIATRIST COMMUNICATION: Relevant treatment options, including evidence-based interventions, were considered and discussed with the . YES A copy of the treatment plan was given to the . NO Risks, benefits, and potential complications were discussed with the . YES /mike/ LOUISE JALLOH MD STAFF PSYCHIATRIST Signed: 02/18/2024 13:14 LOUISE JALLOH [facility] Feb 18, 2024 01:06 PM PSYCHIATRY NOTE: LOCAL TITLE: PSYCHIATRY NOTE STANDARD TITLE: PSYCHIATRY NOTE DATE OF NOTE: FEB 18, 2024@13:06 ENTRY DATE: FEB 18, 2024@13:06:20 AUTHOR: LOUISE JALLOH EXP COSIGNER: URGENCY: STATUS: COMPLETED 30 min for encounter, including chart review, interview, charting chart reviewed Pt relatively stable. Reports generally good mood. Denies depression, except occ mild sx's. PTSD sx's/irritability improved, but can fluctuate with stress. Affect brightens appropriately, full range. He denies SI and violent ideation. No h/o psychotic symptoms. Well organized. No paranoid or delusional content presented. Less obsessive quality. Future oriented. Cognitive exam grossly intact/unchanged. Good self-care. No slowing noted. Has interests, maintain home. Likes to do geneology on line Sleep remains improved w trazodone. Pt again satisfied w response to current psych meds --he feels significant improvement with mood and PTSD symptoms, [...] source for the followin. Seborrheic Dermatitis (SCT [id number]) 2. Exsmoker 3. Full thickness rotator cuff tear 4. Colonoscopy Screening 5. Type 2 diabetes mellitus controlled by diet 6. Primary Care Physician 7. Insomnia 8. Erectile dysfunction (SNOMED CT 264452911) 9. Depression 10. Chronic post-traumatic stress disorder (SNOMED CT 115782770) 11. Hyperlipidemia 12. Skin Disorder-Psoriasis/Rosacea 13. History of alcohol abuse 14. Anxiety disorder (SNOMED CT 833634922) Active Outpatient Medications (including Supplies): Active Outpatient Medications Status 1) SERTRALINE HCL 100MG TAB TAKE ONE AND ONE-HALF TABLETS BY ACTIVE MOUTH ONCE DAILY FOR PTSD AND DEPRESSION Indication: FOR POSTTRAUMATIC STRESS SYNDROME 2) TRAZODONE HCL 50MG TAB TAKE ONE AND ONE-HALF TABLETS BY ACTIVE MOUTH AT BEDTIME NEEDED FOR INSOMNIA PAST PSYCH MED HX: zoloft -- long period on this remeron -- did not tolerate effexor -- WRAY, N prazosin -- dizzy IMP: dsm-5 PTSD, chronic -- 100% sc Unspecified depressive disorder - improved h/o alcohol use disorder -- reports limited [...] [facility] for coping w stress, and [...] whether with a VA or non-VA provider. /mike/ LOUISE JALLOH MD STAFF PSYCHIATRIST Signed: 02/18/2024 13:31 Receipt Acknowledged By: 02/18/2024 13:37 /mike/ NAKIA CRUZ [employer] LOUISE JALLOH
--- OUTSIDE RECORDS SUMMARY | 2024-04-04 09:30 | XMS_ITS | Encounter Summary ---
Author Name [facility] [place] [facility] [place] Organization [place] Address [address] [place] [address] Care Team Providers Care Timing Inspector Name Role Phone SANDY NAVA Primary Care [...] Chua [employer] MEDIC[employer] SUPPLEMEN [facility] Feb 22, 2010 NEEW [id number] ANASTASIA LEMOS PATIENT [employer] SUPPLEMEN PRACHI [facility] Feb 22, 2010 [id number] ANASTASIA LEMOS PATIENT SAVE RX PRESCRIPT ION [facility] Mar 25, 2012 [id number] ANASTASIA LEMOS PATIENT Selected Encounter This section includes the information on record at [place] for the Encounter. Date/Time Encounter Type Encounter Description Reason Provider Source Apr 04, 2024 01:30 PM OFFICE O/P EST LOW 20 MIN PODIATRY ICD-10-CM L60.0 Ingrowing JUSTINE Cooper Encounter Template Text not used by VA Assessments - Encounter Diagnoses This section includes the primary and secondary diagnoses documented for the Encounter. Date/Time Primary/Secondary Diagnosis Diagnosis Name Provider Source Apr 04, 2024 02:05 PM PRIMARY Ingrowing nail JUSTINE ALLRED [facility] Apr 04, 2024 02:05 PM SECONDARY Pain in left toe(s) JUSTINE ALLRED Apr 04, 2024 02:05 PM SECONDARY Pain in right toe(s) JUSTINE ALLRED Plan of Treatment: Future Appointments (+ 6 months) and Future Tests (+/- 45 days) The Plan of Treatment section includes future care activities for the patient [facility] [place] [facility]. This section includes future appointments and future orders which are active, pending or scheduled. Future Appointments This section includes appointments that were scheduled to occur 6 months from the date of the Encounter, up to a maximum of 20 appointments. The data comes from all [place] treatment facilities. Appointment Date/Time Appointment Type Appointme nt Facility Name May 26, 2024 11:30 AM AMBULATORY - PSYCHIATRY [facility] Jun 02, 2024 01:00 PM AMBULATORY - REHAB MEDICIN [facility] [place] [facility] Jun 07, 2024 08:00 AM AMBULATORY - MEDICINE [facility] [place] [facility] Jun 13, 2024 01:30 PM AMBULATORY - MEDICINE [facility] Jun 13, 2024 02:00 PM AMBULATORY - MEDICINE [facility] June 27, 2024 02:50 PM AMBULATORY - MEDICINE [facility] [place] [facility] June 29, 2024 01:00 PM AMBULATORY - REHAB MEDICIN E [facility] [place] [facility] Jul 25, 2024 03:00 PM AMBULATORY - MEDICINE [facility] Jul 27, 2024 01:00 PM AMBULATORY - REHAB MEDICIN E [facility] [place] [facility] Aug 14, 2024 08:30 AM AMBULATORY - REHAB MEDICIN E [facility] [place] [facility] Aug 18, 2024 02:30 PM AMBULATORY - PSYCHIATRY [facility] Sep 05, 2024 02:00 PM AMBULATORY - MEDICINE [facility] Sep 28, 2024 02:00 PM AMBULATORY - MEDICINE [place] [facility] [place] [facility] Social History: Smoking Status (Most current) and Tobacco Use (All prior to encounter date) This section includes the most current, and the historical, smoking and tobacco- related health factors from the [facility] where the Encounter took place. Current Smoking Status This section includes the most current smoking, or tobacco-related health factor, from the [place] facility where the Encounter took place. Date/Time Current Smoking Status Comment Sarahy linneazoraida May 26, 2023 02:00 PM VA-TOBACCO FORMER USER [facility] Tobacco Use History This section includes a history of the smoking, or tobacco-related health factors, that were collected on or before the date of the Encounter. The data comes from the [facility] where the Encounter took place. Date/Time Smoking Status/Tobacco Use Comment F acalison May 26, 2023 02:00 PM VA-TOBACCO QUIT 15 YRS OR MORE [facility] Apr 01, 2022 03:30 PM VA-TOBACCO FORMER USER [facility] Apr 01, 2022 03:30 PM VA-TOBACCO QUIT 15 YRS OR MORE [facility] Apr 04, 2021 02:00 PM VA-TOBACCO FORMER USER [facility] Apr 04, 2021 02:00 PM VA-TOBACCO QUIT 15 YRS OR MORE [facility] Apr 04, 2020 02:30 PM VA-TOBACCO FORMER USER [facility] Apr 04, 2020 02:30 PM VA-TOBACCO QUIT 15 YRS OR MORE [facility] Mar 06, 2019 02:44 PM VA-TOBACCO FORMER USER [facility] Mar 06, 2019 02:44 PM VA-TOBACCO QUIT 15 YRS OR MORE [facility] Sep 24, 2017 10:35 AM VA-TOBACCO FORMER USER [facility] Sep 24, 2017 10:35 AM VA-TOBACCO QUIT 15 YRS OR MORE [facility] Aug 30, 2017 03:05 PM QUIT TOBACCO USE > 7 YEARS AGO [facility] June 29, 2016 08:41 AM QUIT TOBACCO USE > 7 YEARS AGO [facility] July 10, 2015 01:03 PM QUIT TOBACCO USE > 7 YEARS AGO quit 23 years ago [facility] Apr 18, 2015 01:45 PM QUIT TOBACCO USE 1-7 YEARS AGO [facility] Encounter Notes: All associated encounter notes This section contains the clinical notes associated to the Encounter. Date/Time Encounter Note(s) Provider Source Apr 04, 2024 08:48 AM PODIATRY NOTE: LOCAL TITLE: PODIATRY NOTE STANDARD TITLE: PODIATRY NOTE DATE OF NOTE: APR 04, 2024@08:48 ENTRY DATE: APR 04, 2024@08:48:12 AUTHOR: JUSTINE ALLRED COSIGNER: URGENCY: STATUS: COMPLETED WHEN I INQUIRE ABOUT COVID VACCINE HE DID NOT WISH TO REPLY IN THE AFFIRMATIVE TO HIS DESIRE TO ABSTAIN AND/OR RECEIVE IN THE FUTURE. LAST SEEN FOR TREATMENT: 02/09/2024 S: PtJo Ann is a 78 yo alert [facility] MALE who IS SEEN for CONTINUED [...] present physical-medical status. Protective sensation utilizing a [place]-Pablo lOg monofilament is 10/10 bilateral. *NOTE: *YEARLY [...] due to the underlying medical conditions. RTC:( 06/13 @1:30pm & ? 3:30pm-prefers later appt.) ) *DISCUSSED NEW PROTOCOLS AND CALLED LEV [...] Remote Allergy/ADR Data available for this patient [place] [facility] Med Recon NoGlossary (Tool #1) INCLUDED IN THIS LIST: Alphabetical list of active outpatient prescriptions dispensed from this VA (local) and dispensed from another [place] or [facility]D facility (remote) as well as [...] the patient into personal health records (i.e. [facility]) are NOT included in this list. Non-VA medications documented outside this [place], remote inpatient orders (regardless of status) and remote clinic medications are NOT included in this list. The patient and provider must always discuss medications the patient is taking, regardless of where the medication was dispensed or obtained. OUTPT SERTRALINE HCL 100MG TAB (Status = Discontinued) TAKE ONE AND ONE-HALF TABLETS BY MOUTH ONCE DAILY FOR PTSD AND DEPRESSION Rx# [id number] Last Released: 10/20/23 Qty/Days Supply: Rx Expiration Date: 03/30/24 Refills Remainin Indication: FOR POSTTRAUMATIC STRESS SYNDROME OUTPT SERTRALINE HCL 100MG TAB (Status = Active) TAKE ONE AND ONE-HALF TABLETS BY MOUTH ONCE DAILY FOR PTSD AND DEPRESSION Rx# [id number] Last Released: 02/18/24 Qty/Days Supply: Rx Expiration Date: 02/18/25 Refills Remainin Indication: FOR POSTTRAUMATIC STRESS SYNDROME OUTPT TRAZODONE HCL 50MG TAB (Status = Discontinued) TAKE ONE AND ONE-HALF TABLETS BY MOUTH AT BEDTIME NEEDED FOR INSOMNIA Rx# [id number] Last Released: 10/20/23 Qty/Days Supply: Rx Expiration Date: 03/30/24 Refills Remainin OUTPT TRAZODONE HCL 50MG TAB (Status = Active) TAKE ONE AND ONE-HALF TABLETS BY MOUTH AT BEDTIME NEEDED FOR INSOMNIA Rx# [id number] Last Released: 03/01/24 Qty/Days Supply: Rx Expiration Date: 02/18/25 Refills Remainin SUPPLIES /mike/ JUSTINE ALLRED DPM CLAIMS SORTER Signed: 04/04/2024 14:06 JUSTINE ALLRED
--- OUTSIDE RECORDS SUMMARY | 2024-05-26 07:30 | XMS_ITS | Encounter Summary ---
Author Name [facility] [place] Organization [facility] [place] [place] Address [address] [place] [address] Care Team Providers Care Hardware Test Engineer Name Role Phone SANDY NAVA Primary Care [...] [employer] SUPPLEMEN PRACHI [facility] Feb 22, 2010 [id number] ANASTASIA LEMOS PATIENT [employer] SU[employer]LEMEN PRACHI [facility] Feb 22, 2010 [id number] ANASTASIA LEMOS PATIENT SAVE RX PRESCRIPT ION [facility] Mar 25, 2012 [id number] ANASTASIA LEMOS PATIENT Selected Encounter This section includes the information on record at [place] for the Encounter. Date/Time Encounter Type Encounter Description Reason Provider Source May 26, 2024 11:30 AM OFFICE O/P EST MOD 30 MIN [facility] - IND ICD-10-CM F43.12 Post-traumatic stress disorder, chronic ARTI JALLOH IHJazmin Encounter Template Text not used by [facility] Assessments - Encounter Diagnoses This section includes the primary and secondary diagnoses documented for the Encounter. Date/Time Primary/Secondary Diagnosis Diagnosis Name Provider Source May 26, 2024 11:55 AM PRIMARY Post-traumatic stress disorder, chronic LOUISE JALLOH Plan of Treatment: Future Appointments (+ 6 months) and Future Tests (+/- 45 days) The Plan of Treatment section includes future care activities for the patient from all [place] treatmentfacilities. This section includes future appointments and future orders which are active, pending or scheduled. Future Appointments This section includes appointments that were scheduled to occur 6 months from the date of the Encounter, up to a maximum of 20 appointments. The data comes from all [place] treatment facilities. Appointment Date/Time Appointment Type Appointme nt Facility Name Jun 02, 2024 01:00 PM AMBULATORY [facility] [place] [facility] Jun 07, 2024 08:00 AM AMBULATORY [facility] MEDIC[facility] [place] [facility] Jun 13, 2024 01:30 PM [facility] Jun 13, 2024 02:00 PM [facility] June 27, 2024 02:50 PM AMBULATORY [facility] MEDICINE [facility] [place] [facility] June 29, 2024 01:00 PM AMBULATORY - [facility] MEDICIN [facility] [place] [facility] Jul 25, 2024 03:00 PM [facility]ATORY [facility] Jul 27, 2024 01:00 PM AMBULATORY - [facility]ICIN [facility] [place] [facility] Aug 14, 2024 08:30 AM AMBULATORY - [facility]IC[facility] [place] [facility] Aug 18, 2024 02:30 PM AMBULATORY - PSYCHIATRY [facility] Sep 05, 2024 02:00 PM AMBULATORY [facility] Sep 28, 2024 02:00 PM AMBULATORY - MEDICINE [facility] [place] [facility] Oct 06, 2024 03:00 PM AMBULATORY - [facility]IC[facility] Oct 09, 2024 08:00 AM AMBULATORY - MEDIC[facility] Oct 13, 2024 12:00 PM AMBULATORY - MEDICINE [facility] Nov 14, 2024 03:00 PM AM[facility]ATORY - [facility] Social History: Smoking Status (Most current) and Tobacco Use (All prior to encounter date) This section includes the most current, and the historical, smoking and tobacco- related health factors from the [facility] where the Encounter took place. Current Smoking Status This section includes the most current smoking, or tobacco-related health factor, from the [facility] where the Encounter took place. Date/Time Current Smoking Status Comment Sarahy watson May 26, 2023 02:00 PM VA-TOBACCO FORMER USER [place] Tobacco Use History This section includes a history of the smoking, or tobacco-related health factors, that were collected on or before the date of the Encounter. The data comes from the [facility] where the Encounter took place. Date/Time Smoking Status/Tobacco Use Comment F acility May 26, 2023 02:00 PM VA-TOBACCO QUIT 15 YRS OR MORE [place] Apr 01, 2022 03:30 PM VA-TOBACCO FORMER USER [place] Apr 01, 2022 03:30 PM VA-TOBACCO QUIT 15 YRS OR MORE [place] Apr 04, 2021 02:00 PM VA-TOBACCO FORMER USER [place] Apr 04, 2021 02:00 PM VA-TOBACCO QUIT 15 YRS OR MORE [place] Apr 04, 2020 02:30 PM VA-TOBACCO FORMER USER [place] Apr 04, 2020 02:30 PM VA-TOBACCO QUIT 15 YRS OR MORE [place] Mar 06, 2019 02:44 PM VA-TOBACCO FORMER USER [place] Mar 06, 2019 02:44 PM VA-TOBACCO QUIT 15 YRS OR MORE [place] Sep 24, 2017 10:35 AM VA-TOBACCO FORMER USER [place] Sep 24, 2017 10:35 AM VA-TOBACCO QUIT 15 YRS OR MORE [place] Aug 30, 2017 03:05 PM QUIT TOBACCO USE > 7 YEARS AGO [place] June 29, 2016 08:41 AM QUIT TOBACCO USE > 7 YEARS AGO [place] July 10, 2015 01:03 PM QUIT TOBACCO USE > 7 YEARS AGO quit 23 years ago [place] Apr 18, 2015 01:45 PM QUIT TOBACCO USE 1-7 YEARS AGO [place] Encounter Notes: All associated encounter notes This section contains the clinical notes associated to the Encounter. Date/Time Encounter Note(s) Provider Source May 26, 2024 11:26 AM PSYCHIATRY NOTE: LOCAL TITLE: PSYCHIATRY NOTE STANDARD TITLE: PSYCHIATRY NOTE DATE OF NOTE: MAY 26, 2024@11:26 ENTRY DATE: MAY 26, 2024@11:26:24 AUTHOR: JALLOH,LOUISE G EXP COSIGNER: URGENCY: STATUS: COMPLETED 30 min for encounter, including chart review, interview, charting chart reviewed Pt again relatively stable. Generally good mood. Denies depression, again except occ mild sx's. PTSD sx's/irritability improved, but again can fluctuate with stress. Affect brightens appropriately, [...] again wants to continue the meds the same, he does not feel he needs increase Denies med side effects. Denies next-day sedation. [...] source for the followin. Seborrheic Dermatitis (SCT [id number]) 2. Exsmoker 3. Full thickness rotator cuff tear 4. Colonoscopy Screening 5. Type 2 diabetes mellitus controlled by diet 6. Primary Care Physician 7. Insomnia 8. Erectile dysfunction (SNOMED CT [id number]) 9. Depression 10. Chronic post-traumatic stress disorder (SNOMED CT [id number]) 11. Hyperlipidemia 12. Skin Disorder-Psoriasis/Rosacea 13. History of alcohol abuse 14. Anxiety disorder (SNOMED CT [id number]) Active Outpatient Medications (including Supplies): Active Outpatient Medications Status 1) SERTRALINE HCL 100MG TAB TAKE ONE AND ONE-HALF TABLETS BY ACTIVE (S) MOUTH ONCE DAILY FOR PTSD AND DEPRESSION [...] denied suicidal and violent ideation, but the [facility] Compliance Crisis Line information and number were reviewed w patient as a precaution. The patient also understands to call 911 or to go to ER in the event of an emergency. encourage to continue w therapistiRo at the [facility] -- for coping w stress, and for PTSD and anger management -- although pt has not seen need for therapy recently Previously offered pt anger managemnt grp in this clinic -- pt did not feel he need this We again reviewed the alcohol patient's alcohol use, which remains limited --I encouraged the patient to limit his alcohol use or abstain. I again offered the patient HUONG grp in clinic or the HUONG clinic but he does not feel he needs this; encourage AA/sponsor; pt also [facility]; again, pt does not want to try naltrexone or campral -- he does not feel he needs these CONTINUE ZOLOFT 150 MG DAILY for ptsd/depression/anxiety -- good response and well tolerated; the patient did not want to consider different antidepressant trial to try to further reduce PTSD symptoms. He is satisfied with the response to Zoloft. He does not feel he needs dose increase CONTINUE TRAZODONE 75 MG QHS PRN INSOMNIA [...] whether with a VA or non-VA provider. Depression Monitoring (PHQ-9): PHQ-9 A PHQ-9 screen was performed. The score was 2. 1. Little interest or pleasure in doing things Not at all 2. Feeling down, depressed, or hopeless Several days 3. Trouble falling or staying asleep, or sleeping too much Several days 4. Feeling tired or having little energy Not at all 5. Poor appetite or overeating Not at all 6. Feeling bad about yourself or that you are a failure or have let yourself or your family down Not at all 7. Trouble concentrating on things, such as reading the newspaper or watching television Not at all 8. Moving or speaking so slowly that other people could have noticed. Or the opposite being so fidgety or restless that you have been moving around a lot more than usual Not at all 9. Thoughts that you would be better off or of hurting yourself in some way Not at all 10. If you checked off any problems, how DIFFICULT have these problems made it for you to do your work, take care of things at home or get along with other people? Somewhat difficult /es/ LOUISE JALLOH MD STAFF PSYCHIATRIST Signed: 05/26/2024 11:55 LOUISE JALLOH
--- OUTSIDE RECORDS SUMMARY | 2024-06-02 09:00 | XMS_ITS | Encounter Summary ---
Author Name [facility] [place] Organization [facility] [place] [place] Address [address] [place] [address] Care Team Providers Care Pit Steward Name Role Phone SANDY NAVA Primary Care Provider Unavailabl e Insurance Providers: All historical and current [...] Chua [employer] MEDIC[employer] SUPPLEMEN [facility] Feb 22, 2010 NEEW [id number] ANASTASIA LEMOS PATIENT [place] [employer] MEDIC[employer] SUPPLEMEN PRACHI [facility] Feb 22, 2010 [id number] ANASTASIA LEMOS PATIENT SAVE RX PRESCRIPT ION [facility] Mar 25, 2012 [id number] ANASTASIA LEMOS PATIENT Selected Encounter This section includes the information on record at [place] for the Encounter. Date/Time Encounter Type Encounter Description Reason Provider Source Jun 02, 2024 01:00 PM EAR IMPRESSION AUDIOLOGY ICD-10-CM Z46.1 Encounter for fitting and adjustment of hearing aid NEHA ANTHONY Encounter Template Text not used by VA Assessments - Encounter Diagnoses This section includes the primary and secondary diagnoses documented for the Encounter. Date/Time Primary/Secondary Diagnosis Diagnosis Name Provider Source Jun 02, 2024 03:49 PM PRIMARY Encounter for fitting and adjustment of hearing aid SANJAY ANTHONY [facility] Jun 02, 2024 03:49 PM SECONDARY Sensorineural hearing loss, bilateral SANJAY ANTHONY [facility] Plan of Treatment: Future Appointments (+ 6 months) and Future Tests (+/- 45 days) The Plan of Treatment section includes [facility] care activities for the [facility] [place] [facility] This section includes future appointments and future orders which are active, pending or scheduled. Future Appointments This section includes appointments that were scheduled to occur 6 months from the date of the Encounter, up to a maximum of 20 appointments. The data comes from all [place] treatment facilities. Appointment Date/Time Appointment Type Appointme nt Facility Name Jun 07, 2024 08:00 AM AMBULATORY - MEDICINE [place] [facility] [place] [facility] Jun 13, 2024 01:30 PM [facility]ICINE [facility] Jun 13, 2024 02:00 PM AM[facility]ATORY - MEDICINE [facility] June 27, 2024 02:50 PM AMBULATORY - MEDICINE [place] [facility] [place] [facility] June 29, 2024 01:00 PM AMBULATORY - REHAB MEDICIN E [facility] [place] [facility] Jul 25, 2024 03:00 PM AM[facility]ULATORY - MEDICINE [facility] Jul 27, 2024 01:00 PM AMBULATORY - REHAB MEDICIN [facility] [place] [facility] Aug 14, 2024 08:30 AM AMBULATORY - REHAB MEDICIN E [facility] [place] [facility] Aug 18, 2024 02:30 PM AMBULATORY - PSYCHIATRY [facility] Sep 05, 2024 02:00 PM AMBULATORY - MEDICINE [facility] Sep 28, 2024 02:00 PM AMBULATORY - MEDICINE [facility] [place] [facility] Oct 06, 2024 03:00 PM AM[facility]ATORY - MEDICINE [facility] Oct 09, 2024 08:00 AM AM[facility]ATORY - MEDICINE [facility] Oct 13, 2024 12:00 PM AM[facility]ATORY - MEDICINE [facility] Nov 14, 2024 03:00 PM AMBULATORY - MEDICINE [facility] [place] Nov 29, 2024 11:30 AM AMBULATORY - PSYCHIATRY [facility] History: Smoking Status (Most current) and Tobacco Use (All prior to encounter date) This section includes the most current, and the historical, smoking and tobacco- related health factors from the [place] facility where the Encounter took place. Current Smoking Status This section includes the most current smoking, or tobacco-related health factor, from the [place] facility where the Encounter took place. Date/Time Current Smoking Status Comment Sarahy yarbroughzoraida Nov 16, 2001 03:40 PM HISTORY OF SMOKING quit in 1972 [facility] Tobacco Use History This section includes a history of the smoking, or tobacco-related health factors, that were collected on or before the date of the Encounter. The data comes from the [place] facility where the Encounter took place. Date/Time Smoking Status/Tobacco Use Comment F sepideh May 20, 2001 03:39 PM QUIT TOBACCO USE > 7 YEARS AGO [facility] Encounter Notes: All associated encounter notes This section contains the clinical notes associated to the Encounter. Date/Time Encounter Note(s) Provider Source Jun 02, 2024 04:21 PM ADDENDUM: LOCAL TITLE: Addendum STANDARD TITLE: ADDENDUM DATE OF NOTE: JUN 02, 2024@16:21:18 ENTRY DATE: JUN 02, 2024@16:21:19 AUTHOR: SNEHA MACIAS EXP COSIGNER: URGENCY: STATUS: COMPLETED Will forward to PACT AMSA to please schedule an ear lavage. is to use the ear drops for 5 days prior to the appointment. RTC placed. /mike/ SNEHA MACIAS RN REGISTERED NURSE Signed: 06/02/2024 16:22 Receipt Acknowledged By: 06/08/2024 09:21 /mike/ JOSSELINE SCHAEFFER ADVANCED MILLING MACHINE SET UP OPERATOR ====== --- Original Document --- 06/02/24 AUDIOLOGY CLINIC: Dx CODE: Z46.1-Encounter for Fitting/Adjusting Hearing Aid(s); H90.3- Sensorineural Hearing Loss, Bilateral APPOINTMENT TYPE: Hearing Aid Programming HISTORY/BACKGROUND: The patient was seen for a hearing aid follow-up appointment. He was fit with [employer] Evolv AI RICs on 08/11/22. He reports both hearing aids are weak and keep sliding out of his ears. Additionally, he reports difficulty replacing batteries and would like to switch to rechargeable devices. He does not have a pacemaker. Otoscopy revealed deeply impacted hard cerumen bilaterally. [place] was advised he will need cerumen removed prior to scheduling an updated hearing test and hearing aid selection appointment. HEARING AID CHECK: The hearing aids were cleaned and checked. Both retention tails were twisted. Replaced retention tails, microphone covers, wax guards, and domes. reported a significant improvement in sound quality post maintenance. Recommending earmolds do to longstanding fit issues. Impressions were taken without incident and with 's verbal permission for canal lock earmolds. These earmolds can be coupled to hearing aids at upcoming hearing test appointment. PLAN/RECOMMENDATION(S): 1. Alerting PCP and family member caretaker to order debrox drops and schedule for bilateral cerumen removal. 2. Once cerumen is removed, was advised to contact the clinic to schedule an updated hearing test. 3. New earmolds will be held in the cary cabinet awaiting hearing test appointment. * Patient Education Education provided on the following topics: Hearing aids Education provided to: P Response to Education: VU Lopez Patient P Family F Significant Other SO Verbalizes Understanding VU Returns Demonstration RD Performs Independently PI Lacks Comprehension LC Refused Education RE Not Applicable NA * /aby ANTHONY STAFF OVEN UNLOADER Signed: 06/02/2024 15:49 Receipt Acknowledged By: 06/02/2024 15:55 /es/ SANDY NAVA MD Primary Care Physician 06/02/2024 16:20 /mike/ SNEHA MACIAS RN REGISTERED NURSE 06/02/2024 ADDENDUM STATUS: COMPLETED Rx for debrox sent via mail to . /mike/ SANDY NAVA MD Primary Care Physician Signed: 06/02/2024 15:57 06/07/2024 ADDENDUM STATUS: COMPLETED AMSA WAITING ON FURTHER INSTRUCTIONS FOR SCHEDULING SO PACT 10 RN APPT. /mike/ JOSSELINE SCHAEFFER ADVANCED MILLING MACHINE SET UP OPERATOR Signed: 06/07/2024 15:51 06/08/2024 ADDENDUM STATUS: COMPLETED Plant Sprayer called to [X} schedule primary care appt RN APPT [X} Scheduled appt SPOKE WITH: SCHEDULED APPT - TYPE: Face to face APPT SCHEDULED ON May AT 12:30 /mike/ JOSSELINE SCHAEFFER ADVANCED MILLING MACHINE SET UP OPERATOR Signed: 06/08/2024 09:20 SNEHA MACIAS [place] [facility] [place] [facility] Jun 02, 2024 08:57 AM AUDIOLOGY E & M NOTE: LOCAL TITLE: AUDIOLOGY CLINIC STANDARD TITLE: AUDIOLOGY E & M NOTE DATE OF NOTE: JUN 02, 2024@08:57 ENTRY DATE: JUN 02, 2024@08:57:16 AUTHOR: NEHA ANTHONY COSIGNER: URGENCY: STATUS: COMPLETED AUDIOLOGY CLINIC Has ADDENDA Dx CODE: Z46.1-Encounter for Fitting/Adjusting Hearing Aid(s); H90.3- Sensorineural Hearing Loss, Bilateral APPOINTMENT TYPE: Hearing Aid Programming HISTORY/BACKGROUND: The patient was seen for a hearing aid follow-up appointment. He was fit with [employer] Evolv AI RICs on 08/11/22. He reports both hearing aids are weak and keep sliding out of his ears. Additionally, he reports difficulty replacing batteries and would like to switch to rechargeable devices. He does not have a pacemaker. Otoscopy revealed deeply impacted hard cerumen bilaterally. [place] was advised he will need cerumen removed prior to scheduling an updated hearing test and hearing aid selection appointment. HEARING AID CHECK: The hearing aids were cleaned and checked. Both retention tails were twisted. Replaced retention tails, microphone covers, wax guards, and domes. reported a significant improvement in sound quality post maintenance. Recommending earmolds do to longstanding fit issues. Impressions were taken without incident and with 's verbal permission for canal lock earmolds. These earmolds can be coupled to hearing aids at upcoming hearing test appointment. PLAN/RECOMMENDATION(S): 1. Alerting PCP and family member caretaker to order debrox drops and schedule for bilateral cerumen removal. 2. Once cerumen is removed, was advised to contact the clinic to schedule an updated hearing test. 3. New earmolds will be held in the cary cabinet awaiting hearing test appointment. * Patient Education Education provided on the following topics: Hearing aids Education provided to: P Response to Education: VU Lopez Patient P Family F Significant Other SO Verbalizes Understanding VU Returns Demonstration RD Performs Independently PI Lacks Comprehension LC Refused Education RE Not Applicable NA * /mike/ NEHA ANTHONY STAFF OVEN UNLOADER Signed: 06/02/2024 15:49 Receipt Acknowledged By: 06/02/2024 15:55 /es/ SANDY NAVA MD Primary Care Physician 06/02/2024 16:20 /mike/ SNEHA MACIAS RN REGISTERED NURSE 06/02/2024 ADDENDUM STATUS: COMPLETED Rx for debrox sent via mail to . /mike/ SANDY NAVA MD Primary Care Physician Signed: 06/02/2024 15:57 06/02/2024 ADDENDUM STATUS: COMPLETED Will forward to PACT AMSA to please schedule an ear lavage. [place] is to use the ear drops for 5 days prior to the appointment. RTC placed. /mike/ SNEHA MACIAS RN REGISTERED NURSE Signed: 06/02/2024 16:22 Receipt Acknowledged By: 06/08/2024 09:21 /mike/ JOSSELINE SCHAEFFER ADVANCED MILLING MACHINE SET UP OPERATOR 06/07/2024 ADDENDUM STATUS: COMPLETED AMSA WAITING ON FURTHER INSTRUCTIONS FOR SCHEDULING SO PACT 10 RN APPT. /mike/ JOSSELINE SCHAEFFER ADVANCED MILLING MACHINE SET UP OPERATOR Signed: 06/07/2024 15:51 06/08/2024 ADDENDUM STATUS: COMPLETED Plant Sprayer called to [X} schedule primary care appt RN APPT [X} Scheduled appt SPOKE WITH: [place] SCHEDULED APPT - TYPE: Face to face APPT SCHEDULED ON May AT 12:30 /aby SCHAEFFER ADVANCED MILLING MACHINE SET UP OPERATOR Signed: 06/08/2024 09:20 06/15/2024 ADDENDUM STATUS: COMPLETED Earmolds received and certified. Placed in cary cabinet for upcoming Hearing Eval on 06/29/2024. /mike/ LEV ALANIS [facility] Audio Visual Facilities Engineer Signed: 06/15/2024 08:40 NEHA ANTHONY [facility]
--- OUTSIDE RECORDS SUMMARY | 2024-06-13 09:30 | XMS_ITS | Encounter Summary ---
Author Name [facility] [place] Organization [facility] [place] Address [address] [place] [address] Care Team Providers Care Contract Consultant Name Role Phone SANDY NAVA Primary Care [...] [facility] [employer] SUPPLEMEN [facility] Feb 22, 2010 [id number] ANASTASIA LEMOS PATIENT [employer] SUPPLEMEN PRACHI [facility] Feb 22, 2010 [id number] ANASTASIA LEMOS PATIENT SAVE RX PRESCRIPT ION [facility] Mar 25, 2012 [id number] ANASTASIA LEMOS PATIENT Selected Encounter This section includes the information on record at [place] for the Encounter. Date/Time Encounter Type Encounter Description Reason Provider Source Jun 13, 2024 01:30 PM OFFICE O/P EST LOW 20 MIN PODIATRY ICD-10-CM L60.0 Ingrowing nail JUSTINE ALLRED IHJazmin Encounter Template Text not used by [facility] Assessments - Encounter Diagnoses This section includes the primary and secondary diagnoses documented for the Encounter. Date/Time Primary/Secondary Diagnosis Diagnosis Name Provider Source Jun 13, 2024 01:49 PM PRIMARY Ingrowing nail JUSTINE ALLRED [facility] Jun 13, 2024 01:49 PM SECONDARY Pain in left toe(s) JUSTINE ALLRED [facility] Jun 13, 2024 01:49 PM SECONDARY Pain in right toe(s) JUSTINE ALLRED [facility] Jun 13, 2024 01:49 PM SECONDARY Type 2 diabetes w diabetic peripheral angiopath w/o gangrene JUSTINE ALLRED REJI Plan of Treatment: Future Appointments (+ 6 months) and Future Tests (+/- 45 days) The Plan of Treatment section includes future care activities for the patient from all [place] [facility]. This section includes future appointments and future orders which are active, pending or scheduled. Future Appointments This section includes appointments that were scheduled to occur 6 months from the date of the Encounter, up to a maximum of 20 appointments. The data comes from all [facility] facilities. Appointment Date/Time Appointment Type Appointme nt Facility Name June 27, 2024 02:50 PM AMBULATORY - MEDICINE [place] [facility] [place] [facility] June 29, 2024 01:00 PM AMBULATORY - REHAB MEDICIN E [facility] [place] [facility] Jul 25, 2024 03:00 PM AMBULATORY - MEDICINE [facility] Jul 27, 2024 01:00 PM AMBULATORY - REHAB MEDICIN E [facility] [place] [facility] Aug 14, 2024 08:30 AM AMBULATORY - REHAB MEDICIN E [facility] [place] [facility] Aug 18, 2024 02:30 PM AMBULATORY - PSYCHIATRY [facility] Sep 05, 2024 02:00 PM AMBULATORY - MEDICINE [facility] Sep 28, 2024 02:00 PM AMBULATORY - MEDICINE [place] [facility] [place] [facility] Oct 06, 2024 03:00 PM AMBULATORY - MEDICINE [facility] Oct 09, 2024 08:00 AM AMBULATORY - MEDICINE [facility] Oct 13, 2024 12:00 PM AMBULATORY - MEDICINE [facility] Nov 14, 2024 03:00 PM AMBULATORY - MEDICINE [facility] Nov 29, 2024 11:30 AM AMBULATORY - PSYCHIATRY [facility] Social History: Smoking Status (Most current) and Tobacco Use (All prior to encounter date) This section includes the most current, and the historical, smoking and tobacco- related health factors from the [place] facility where the Encounter took place. Current Smoking Status This section includes the most current smoking, or tobacco-related health factor, from the [place] facility where the Encounter took place. Date/Time Current Smoking Status Comment Facil ity Jun 13, 2024 02:00 PM VA-TOBACCO USE FORMER CIGARETTES [facility] Tobacco Use History This section includes a history of the smoking, or tobacco-related health factors, that were collected on or before the date of the Encounter. The data comes from the [facility] where the Encounter took place. Date/Time Smoking Status/Tobacco Use Comment F acility Jun 13, 2024 02:00 PM VA-TOBACCO USE FOR LEEANNE CIGARETTES [facility] May 26, 2023 02:00 PM VA-TOBACCO FORMER USER [facility] May 26, 2023 02:00 PM VA-TOBACCO QUIT 15 YRS OR MORE [facility] Apr 01, 2022 03:30 PM VA-TOBACCO FORMER USER [facility] Apr 01, 2022 03:30 PM VA-TOBACCO QUIT 15 YRS OR MORE [facility] Apr 04, 2021 02:00 PM VA-TOBACCO FORMER USER [facility] Apr 04, 2021 02:00 PM VA-TOBACCO QUIT 15 YRS OR MORE [facility] Apr 04, 2020 02:30 PM VA-TOBACCO FORMER USER [facility] Apr 04, 2020 02:30 PM VA-TOBACCO QUIT 15 YRS OR MORE [facility] Mar 06, 2019 02:44 PM VA-TOBACCO FORMER USER [facility] Mar 06, 2019 02:44 PM VA-TOBACCO QUIT 15 YRS OR MORE [facility] Sep 24, 2017 10:35 AM VA-TOBACCO FORMER USER [facility] Sep 24, 2017 10:35 AM VA-TOBACCO QUIT 15 YRS OR MORE [facility] [place] Aug 30, 2017 03:05 PM QUIT TOBACCO USE > 7 YEARS AGO [facility] [facility] June 29, 2016 08:41 AM QUIT TOBACCO USE > 7 YEARS AGO [place] July 10, 2015 01:03 PM QUIT TOBACCO USE > 7 YEARS AGO quit 23 years ago [facility] [place] Apr 18, 2015 01:45 PM QUIT TOBACCO USE 1-7 YEARS AGO [facility] Encounter Notes: All associated encounter notes This section contains the clinical notes associated to the Encounter. Date/Time Encounter Note(s) Provider Source Jun 13, 2024 07:52 AM PODIATRY NOTE: LOCAL TITLE: PODIATRY NOTE STANDARD TITLE: PODIATRY NOTE DATE OF NOTE: JUN 13, 2024@07:52 ENTRY DATE: JUN 13, 2024@07:52:43 AUTHOR: JUSTINE ALLRED COSIGNER: URGENCY: STATUS: COMPLETED WHEN I INQUIRE ABOUT COVID VACCINE HE DID NOT WISH TO REPLY IN THE AFFIRMATIVE TO HIS DESIRE TO ABSTAIN AND/OR RECEIVE IN THE FUTURE. LAST SEEN FOR TREATMENT: 04/04/2024 S: Pt. is a 79 yo alert WDWN [facility] MALE who IS SEEN for CONTINUED [...] due to the underlying medical conditions. RTC:( 07/25 @ 3pm- & 09/05 @ 2PM-overbook prefers later appt.) *DISCUSSED NEW PROTOCOLS AND CALLED LEV TODAY FOR RESCHEDULING I DISCUSSED THE FINDINGS & PLAN WITH PATIENT (UNCHANGED SINCE PREVIOUS VISIT) & PATIENT AGREES AND UNDERSTANDS PLAN-RECEIVED MIRROR DISCUSSED POSSIBLE TOTAL NAIL REMOVAL FOR POSSIBLE IT SYSTEMS ADMINISTRATOR RELIEF Medication Reconciliation: PERFORMED TODAY - SEE BELOW. [...] Remote Allergy/ADR Data available for this patient [place] [facility] [place] [facility] [place] Med Recon NoGlossary (Tool #1) [...] the patient into personal health records (i.e. [employer]) are NOT included in this list. Non-VA medications documented outside this [place], remote inpatient orders (regardless of status) and remote clinic medications are NOT included in this list. The patient and provider must always discuss medications the patient is taking, regardless of where the medication was dispensed or obtained. OUTPT CARBAMIDE PEROXIDE 6.5% OTIC SOLN (Status = Active) INSTILL 5 DROPS INTO THE AFFECTED EAR(S) TWICE DAILY FOR EAR WAX BLOCKAGE Rx# [id number] Last Released: 06/06/24 Qty/Days Supply: Rx Expiration Date: 07/02/24 Refills Remainin Indication: FOR EAR WAX BLOCKAGE OUTPT SERTRALINE HCL 100MG TAB (Status = Active) TAKE ONE AND ONE-HALF TABLETS BY MOUTH ONCE DAILY FOR PTSD AND DEPRESSION Rx# [id number] Last Released: 05/29/24 Qty/Days Supply: Rx Expiration Date: 02/18/25 Refills Remainin Indication: FOR POSTTRAUMATIC STRESS SYNDROME OUTPT TRAZODONE HCL 50MG TAB (Status = Active) TAKE ONE AND ONE-HALF TABLETS BY MOUTH AT BEDTIME NEEDED FOR INSOMNIA Rx# [id number] Last Released: 03/01/24 Qty/Days Supply: Rx Expiration Date: 02/18/25 Refills Remainin SUPPLIES /mike/ JUSTINE ALLRED DPM OPERATOR ENGINEER Signed: 06/13/2024 13:50 JUSTINE ALLREDFIELD
--- OUTSIDE RECORDS SUMMARY | 2024-06-29 09:00 | XMS_ITS ---
Author Name [facility] [place] Organization [place] Address [address] [place] [address] Care Team Providers Care Component Prep Operator Name Role Phone SANDY NAVA Primary Care [...] [employer] SUPPLEMEN PRACHI [facility] Feb 22, 2010 [id number] ANASTASIA LEMOS PATIENT [employer] SUPPLEMEN PRACHI [facility] Feb 22, 2010 [id number] ANASTASIA LEMOS PATIENT SAVE RX PRESCRIPT ION [facility] Mar 25, 2012 [id number] ANATSASIA LEMOS PATIENT Selected Encounter This section includes the information on record at [place] for the Encounter. Date/Time Encounter Type Encounter Description Reason Provider Source June 29, 2024 01:00 PM HEARING AID XM&SLCTN [facility] AUDIOLOGY ICD-10-CM H90.3 Sensorineural hearing loss, bilateral SANJAY ANTHONY Encounter Template Text not used by [place] Assessments - Encounter Diagnoses This section includes the primary and secondary diagnoses documented for the Encounter. Date/Time Primary/Secondary Diagnosis Diagnosis Name Provider Source June 29, 2024 01:11 PM PRIMARY Sensorineural hearing loss, bilateral SANJAY ANTHONY [place] [facility] [place] [place] [facility] June 29, 2024 01:11 PM SECONDARY Encounter for fitting and adjustment of hearing aid SANJAY ANTHONY [place] [facility] [place] [facility] June 29, 2024 01:11 PM SECONDARY Tinnitus, bilateral SANJAY ANTHONY [place] [facility] Plan of Treatment: Future Appointments (+ 6 months) and Future Tests (+/- 45 days) The Plan of Treatment section includes future care activities for the patient from all [place] [facility]. This section includes future appointments and future orders which are active, pending or scheduled. Future Appointments This section includes appointments that were scheduled to occur 6 months from the date of the Encounter, up to a maximum of 20 appointments. The data comes from all [place] treatment facilities. Appointment Date/Time Appointment Type Appointme nt Facility Name Jul 25, 2024 03:00 PM AMBULATORY - MEDICINE [facility] Jul 27, 2024 01:00 PM AMBULATORY - REHAB MEDICIN [place] [facility] [place] [facility] Aug 14, 2024 08:30 AM AMBULATORY - REHAB MEDICIN E [place] [facility] [place] [facility] Aug 18, 2024 02:30 PM AMBULATORY - PSYCHIATRY [facility] Sep 05, 2024 02:00 PM [facility] Sep 28, 2024 02:00 PM AMBULATORY - MEDICINE [place] [facility] [place] [facility] Oct 06, 2024 03:00 PM AMBULATORY - MEDICINE [facility] Oct 09, 2024 08:00 AM [facility] Oct 13, 2024 12:00 PM [facility] Nov 14, 2024 03:00 PM [facility] Nov 29, 2024 11:30 AM AMBULATORY - PSYCHIATRY [facility] Social History: Smoking Status (Most current) and Tobacco Use (All prior to encounter date) This section includes the most current, and the historical, smoking and tobacco- related health factors from the [facility] facility where the Encounter took place. Current Smoking Status This section includes the most current smoking, or tobacco-related health factor, from the [place] facility where the Encounter took place. Date/Time Current Smoking Status Comment Facil ity Nov 16, 2001 03:40 PM HISTORY OF SMOKING quit in 1972 [facility] Tobacco Use History This section includes a history of the smoking, or tobacco-related health factors, that were collected on or before the date of the Encounter. The data comes from the [place] facility where the Encounter took place. Date/Time Smoking Status/Tobacco Use Comment [facility] May 20, 2001 03:39 PM QUIT TOBACCO USE > 7 YEARS AGO [facility] Encounter Notes: All associated encounter notes This section contains the clinical notes associated to the Encounter. Date/Time Encounter Note(s) Provider Source June 29, 2024 07:36 AM AUDIOLOGY E & M NOTE: LOCAL TITLE: AUDIOLOGY CLINIC STANDARD TITLE: AUDIOLOGY E & M NOTE DATE OF NOTE: JUNE 29, 2024@07:36 ENTRY DATE: JUNE 29, 2024@07:36:44 AUTHOR: NEHA ANTHONY COSIGNER: URGENCY: STATUS: COMPLETED AUDIOLOGY CLINIC Has ADDENDA Dx CODE: H90.3-Sensorineural Hearing Loss, Bilateral APPOINTMENT TYPE: Hearing Re-Evaluation and Hearing Aid Selection BACKGROUND/HISTORY: was seen 06/29/24 for a hearing re-evaluation and hearing aid selection appointment. [facility], and reports difficulty replacing batteries. He would like to switch to rechargeable devices. His last hearing evaluation was on 07/06/22 and he believes his hearing has declined since then. He reports intermittent bilateral tinnitus and denies concerns of vertigo. ASSESMENT: Results of today's testing are as follows: Otoscopy was WNL bilaterally. Normal tympanograms obtained bilaterally. Pure tone audiometric testing under headphones revealed hearing WNL through 1 kHz sloping to a severe SNHL bilaterally. SRT WORD RECOGNITION (Recorded [place] [facility] 1/2 Word List) Right 25dBHL 92% @ 75dBHL/40dBm Left 25dBHL 96% @ 75dBHL/40dBm No significant changes were found when compared to the 07/06/22 audiological evaluation. HEARING AID CHECK: New earmolds were coupled to hearing aids. Fit looked excellent AU. was counseled on insertion and removal. Hearing aids were connected to [employer] and acoustic parameters were updated and feedback document control manager initialized. HEARING AID SELECTION: Different hearing aid options were discussed. He is interested in rechargeable technology similar to his previous hearing aids and does not have a pacemaker. Melissa Quiros AI MAGALY RT MPs were selected and ordered in [facility]. Recent impressions on file used for hollow canal lock earmolds. EDUCATION/COUNSELING: The patient was counseled re: today's hearing test results. He demonstrated satisfactory understanding of the education and plan, and was given the opportunity to ask questions throughout today's visit. PLAN: 1. RTC in about 1 month for 60 minute hearing aid fitting appointment. 2. Hearing re-evaluation in 3-5 years, or sooner if change in hearing occurs. * Patient Education Education provided on the following topics: Hearing test results Education provided to: P Response to Education: VU Lopez Patient P Family F Significant Other SO Verbalizes Understanding VU Returns Demonstration RD Performs Independently PI Lacks Comprehension LC Refused Education RE Not Applicable NA * /mike/ NEHA ANTHONY STAFF SALES PRODUCT MANAGER Signed: 06/29/2024 13:51 07/06/2024 ADDENDUM STATUS: COMPLETED Hearing aids received and certified, upcoming appointment scheduled on 07/27/2024. /mike/ LEV DESMOND GARGUILO Audiology Health Records Analyst Signed: 07/06/2024 14:23 NEHA ANTHONY [facility]
--- OUTSIDE RECORDS SUMMARY | 2024-07-25 11:00 | XMS_ITS | Encounter Summary ---
Author Name [facility] [place] Address [address] [place] [address] Care Team Providers Care Public Relations Senior Associate Name Role Phone SANDY NAVA Primary Care [...] [employer] MED[employer] SUPPLEMEN PRACHI [facility] Feb 22, 2010 [id number] ANASTASIA LEMOS PATIENT [employer] MED[employer] SUPPLEMEN PRACHI [facility] Feb 22, 2010 NEEW [id number] ANASTASIA LEMOS PATIENT SAVE RX PRESCRIPT ION [facility] Mar 25, 2012 [id number] ANASTASIA LEMOS PATIENT Selected Encounter This section includes the information on record at [place] for the Encounter. Date/Time Encounter Type Encounter Description Reason Provider Source Jul 25, 2024 03:00 PM OFFICE O/P EST LOW 20 MIN PODIATRY ICD-10-CM L60.0 Ingrowing JUSTINE Cooper IHJazmin Encounter Template Text not used by [facility] Assessments - Encounter Diagnoses This section includes the primary and secondary diagnoses documented for the Encounter. Date/Time Primary/Secondary Diagnosis Diagnosis Name Provider Source Jul 25, 2024 03:32 PM PRIMARY Ingrowing nail JUSTINE ALLRED [facility] Jul 25, 2024 03:32 PM SECONDARY Pain in left toe(s) JUSTINE ALLRED Jul 25, 2024 03:32 PM SECONDARY Pain in right toe(s) JUSTINE ALLRED [facility] Jul 25, 2024 03:32 PM SECONDARY Type 2 diabetes mellitus without complications JUSTINE ALLRED Plan of Treatment: Future Appointments (+ 6 months) and Future Tests (+/- 45 days) The Plan of Treatment section includes future care activities for the patient [facility] This section includes future appointments and future orders which are active, pending or scheduled. Future Appointments This section includes appointments that were scheduled to occur 6 months from the date of the Encounter, up to a maximum of 20 appointments. The data comes from all [facility] facilities. Appointment Date/Time Appointment Type Appointme nt Facility Name Jul 27, 2024 01:00 PM AMBULATORY - [place] [facility] [place] [facility] Aug 14, 2024 08:30 AM AMBULATORY - [facility] [place] [facility] Aug 18, 2024 02:30 PM AMBULATORY - PSYCHIATRY [facility] Sep 05, 2024 02:00 PM AMBULATORY - MEDICINE [facility] Sep 28, 2024 02:00 PM AMBULATORY - MEDICINE [place] [facility] [place] [facility] Oct 06, 2024 03:00 PM AMBULATORY - MEDICINE [facility] Oct 09, 2024 08:00 AM AMBULATORY - MEDICINE [facility] Oct 13, 2024 12:00 PM AMBULATORY - MEDICINE [facility] Nov 14, 2024 03:00 PM AMBULATORY - MEDICINE [facility] Nov 29, 2024 11:30 AM AMBULATORY - PSYCHIATRY [facility] Jan 09, 2025 03:00 PM AMBULATORY - MEDICINE [facility] Social History: Smoking Status (Most current) and Tobacco Use (All prior to encounter date) This section includes the most current, and the historical, smoking and tobacco- related health factors from the [place] facility where the Encounter took place. Current Smoking Status This section includes the most current smoking, or tobacco-related health factor, from the [place] facility where the Encounter took place. Date/Time Current Smoking Status Comment Facil ity Jun 13, 2024 02:00 PM VA-TOBACCO USE [facility] [place] Tobacco Use History This section includes a history of the smoking, or tobacco-related health factors, that were collected on or before the date of the Encounter. The data comes from the [place] facility where the Encounter took place. Date/Time Smoking Status/Tobacco Use Comment F acility Jun 13, 2024 02:00 PM VA-TOBACCO USE [facility] [place] May 26, 2023 02:00 PM VA-TOBACCO FORMER USER [facility] May 26, 2023 02:00 PM VA-TOBACCO QUIT 15 YRS OR MORE [facility] [place] Apr 01, 2022 03:30 PM VA-TOBACCO FORMER USER [facility] [place] Apr 01, 2022 03:30 PM VA-TOBACCO QUIT 15 YRS OR MORE [facility] Apr 04, 2021 02:00 PM VA-TOBACCO FOR[facility] USER [facility] [place] Apr 04, 2021 02:00 PM VA-TOBACCO QUIT 15 YRS OR MORE [facility] Apr 04, 2020 02:30 PM VA-TOBACCO FOR[facility] USER [facility] [place] Apr 04, 2020 02:30 PM VA-TOBACCO QUIT 15 YRS OR MORE [facility] Mar 06, 2019 02:44 PM VA-TOBACCO [facility] [place] Mar 06, 2019 02:44 PM VA-TOBACCO QUIT 15 YRS OR MORE [facility] Sep 24, 2017 10:35 AM VA-TOBACCO [facility] USER [facility] [place] Sep 24, 2017 10:35 AM VA-TOBACCO QUIT 15 YRS OR MORE [facility] Aug 30, 2017 03:05 PM QUIT TOBACCO USE > 7 YEARS AGO [facility] June 29, 2016 08:41 AM QUIT TOBACCO USE > 7 YEARS AGO [facility] July 10, 2015 01:03 PM QUIT TOBACCO USE > 7 YEARS AGO quit 23 years ago [facility] Apr 18, 2015 01:45 PM QUIT TOBACCO USE 1-7 YEARS AGO [facility] Encounter Notes: All associated encounter notes This section contains the clinical notes associated to the Encounter. Date/Time Encounter Note(s) Provider Source Jul 25, 2024 08:28 AM PODIATRY NOTE: LOCAL TITLE: PODIATRY NOTE STANDARD TITLE: PODIATRY NOTE DATE OF NOTE: JUL 25, 2024@08:28 ENTRY DATE: JUL 25, 2024@08:28:59 AUTHOR: JUSTINE ALLRED EXP COSIGNER: URGENCY: STATUS: COMPLETED WHEN I INQUIRE ABOUT COVID VACCINE HE DID NOT WISH TO REPLY IN THE AFFIRMATIVE TO HIS DESIRE TO ABSTAIN AND/OR RECEIVE IN THE FUTURE. LAST SEEN FOR TREATMENT: 06/13/2024 S: Pt. is a 79 yo alert [facility] MALE who IS SEEN for [...] present physical-medical status. Protective sensation utilizing a Cornelia-Pablo lOg monofilament is 10/10 bilateral. A: Clinical [...] due to the underlying medical conditions. RTC:( 09/05 & 11/14 @ 3PM-for nail surgery left both borders & 11/14 @ 3pm for regular nail care.paulino prefers later appt.) *DISCUSSED NEW PROTOCOLS AND CALLED LEV TODAY FOR RESCHEDULING I DISCUSSED THE FINDINGS & PLAN WITH PATIENT (UNCHANGED SINCE PREVIOUS VISIT) & PATIENT AGREES AND UNDERSTANDS PLAN-RECEIVED MIRROR PATIENT HAS REQUESTED NAIL SURGERY LEFT FOOT FOR THE FUTURE & WILL NEED TO BE CONTACTED WHEN HERB RETURNS FOR A CASTING AT 4PM-OVERBOOK NASIM? Medication Reconciliation: PERFORMED TODAY - SEE BELOW. Outpatient: Has the patient been taking medications as documented in the EMLR? YES: The patient has been taking medications as documented in the EMLR. Essential Medication List for Review used to complete this medication reconciliation. INCLUDED IN THIS LIST: Alphabetical list of active outpatient prescriptions dispensed from this [place] (local) and dispensed from another [place] or [facility] facility (remote) as well as inpatient orders [...] Remote Allergy/ADR Data available for this patient [place] [facility] [place] [facility] Med Recon NoGlossary (Tool #1) INCLUDED IN THIS LIST: Alphabetical list of active outpatient prescriptions dispensed from this [place] (local) and dispensed from another VA or [...] the patient into personal health records (i.e. [place]odrilo Dog) are NOT included in this list. Non-VA medications documented outside this [place], remote inpatient orders (regardless of status) and remote clinic medications are NOT included in this list. The patient and provider must always discuss medications the patient is taking, regardless of where the medication was dispensed or obtained. OUTPT CARBAMIDE PEROXIDE 6.5% OTIC SOLN (Status = ) INSTILL 5 DROPS INTO THE AFFECTED EAR(S) TWICE DAILY FOR EAR WAX BLOCKAGE Rx# [id number] Last Released: 06/06/24 Qty/Days Supply: Rx Expiration Date: 07/02/24 Refills Remainin Indication: FOR EAR WAX BLOCKAGE OUTPT SERTRALINE HCL 100MG TAB (Status = Active) TAKE ONE AND ONE-HALF TABLETS BY MOUTH ONCE DAILY FOR PTSD AND DEPRESSION Rx# [id number] Last Released: 05/29/24 Qty/Days Supply: Rx Expiration Date: 02/18/25 Refills Remainin Indication: FOR POSTTRAUMATIC STRESS SYNDROME OUTPT TRAZODONE HCL 50MG TAB (Status = Active) TAKE ONE AND ONE-HALF TABLETS BY MOUTH AT BEDTIME NEEDED FOR INSOMNIA Rx# [id number] Last Released: 03/01/24 Qty/Days Supply: Rx Expiration Date: 02/18/25 Refills Remainin SUPPLIES Suicide Screen: C-SSRS Screening [place]-Suicide Severity Rating Scale (C-SSRS Screener) 1. Over the past month, have you wished you were or wished you could go to sleep and not wake up? No 2. Over the past month, have you had any actual thoughts of killing yourself? No 3. Over the past month, have you been thinking about how you might do this? Response not required due to responses to other questions. 4. Over the past month, have you had these thoughts and had some intention of acting on them? Response not required due to responses to other questions. 5. Over the past month, have you started to work out or worked out the details of how to kill yourself? Response not required due to responses to other questions. 6. If yes, at any time in the past month did you intend to carry out this plan? Response not required due to responses to other questions. 7. In your lifetime, have you ever done anything, started to do anything, or prepared to do anything to end your life (for example, collected pills, obtained a gun, gave away valuables, went to the roof but didn't jump)? No 8. If YES, was this within the past 3 months? Response not required due to responses to other questions. /mike/ JUSTINE ALLRED DPM SCREW DRIVER OPERATOR Signed: 07/25/2024 15:33 JUSTINE ALLRED
--- OUTSIDE RECORDS SUMMARY | 2024-07-27 09:00 | XMS_ITS ---
Author Name [facility] [place] Address [address] [place] [address] Care Team Providers Care Direct Casting Operator Name Role Phone SANDY NAVA Primary [...] Chua [employer] MEDICARE SUPPLEMEN [facility] Feb 22, 2010 NEEW [id number] ANASTASIA LEMOS PATIENT [employer] [place] [employer] MEDICARE SUPPLEMEN PRACHI [facility] Feb 22, 2010 [id number] ANASTASIA LEMOS PATIENT SAVE RX PRESCRIPT ION [facility] Mar 25, 2012 [id number] ANASTASIA LEMOS PATIENT Selected Encounter This section includes the information on record at [place] for the Encounter. Date/Time Encounter Type Encounter Description Reason Provider Source Jul 27, 2024 01:00 PM HEARING SERVICE AUDIOLOGY ICD-10-CM Z46.1 Encounter for fitting and adjustment of hearing aid NEHA ANTHONY Encounter Template Text not used by VA Assessments - Encounter Diagnoses This section includes the primary and secondary diagnoses documented for the Encounter. Date/Time Primary/Secondary Diagnosis Diagnosis Name Provider Source Jul 27, 2024 01:40 PM PRIMARY Encounter for fitting and adjustment of hearing aid [facility] Jul 27, 2024 01:40 PM SECONDARY Sensorineural hearing loss, bilateral SANJAY ANTHONY [facility] Plan of Treatment: Future Appointments (+ 6 months) and Future Tests (+/- 45 days) The Plan of Treatment section includes future care activities for the patient from all [place] [facility]. This section includes future appointments and future orders which are active, pending or scheduled. Future Appointments This section includes appointments that were scheduled to occur 6 months from the date of the Encounter, up to a maximum of 20 appointments. The data comes from all [place] treatment facilities. Appointment Date/Time Appointment Type Appointme nt Facility Name Aug 14, 2024 08:30 AM AMBULATORY - REHAB MEDICIN E [facility] Aug 18, 2024 02:30 PM AMBULATORY - PSYCHIATRY [facility] Sep 05, 2024 02:00 PM AMBULATORY - MEDICINE [facility] Sep 28, 2024 02:00 PM AMBULATORY - MEDICINE [facility] Oct 06, 2024 03:00 PM AMBULATORY - MEDICINE [facility] Oct 09, 2024 08:00 AM AMBULATORY - MEDICINE [facility] Oct 13, 2024 12:00 PM AMBULATORY - MEDICINE [facility] Nov 14, 2024 03:00 PM AMBULATORY - MEDICINE [facility] Nov 29, 2024 11:30 AM AMBULATORY - PSYCHIATRY [facility] Jan 09, 2025 03:00 PM AMBULATORY - MEDICINE [facility] Social History: Smoking Status (Most current) and Tobacco Use (All prior to encounter date) This section includes the most current, and the historical, smoking and tobacco- related health factors from the [place] facility where the Encounter took place. Current Smoking Status This section includes the most current smoking, or tobacco-related health factor, from the [place] facility where the Encounter took place. Date/Time Current Smoking Status Mallory watson Nov 16, 2001 03:40 PM HISTORY OF SMOKING quit in 1972 [facility] Tobacco Use History This section includes a history of the smoking, or tobacco-related health factors, that were collected on or before the date of the Encounter. The data comes from the [place] facility where the Encounter took place. Date/Time Smoking Status/Tobacco Use Comment Danny bunn May 20, 2001 03:39 PM QUIT TOBACCO USE > 7 YEARS AGO [place] [facility] [place] [facility] Encounter Notes: All associated encounter notes This section contains the clinical notes associated to the Encounter. Date/Time Encounter Note(s) Provider Source Aug 08, 2024 08:17 AM ADDENDUM: LOCAL TITLE: Addendum STANDARD TITLE: ADDENDUM DATE OF NOTE: AUG 08, 2024@08:17:01 ENTRY DATE: AUG 08, 2024@08:17:02 AUTHOR: LEV ALANIS EXP COSIGNER: URGENCY: STATUS: COMPLETED Canal earmolds received and certified. Alerting the [facility] to contact the [facility] to schedule a 30 minute HT appointment in [facility]. RTC entered. Earmolds placed in the black cabinet. /mike/ LEV ALANIS Audiology Health Materials Planner/Production Planner Signed: 08/08/2024 08:18 Receipt Acknowledged By: 08/08/2024 08:26 /es/ DL JIMENES ADVANCED SIZING MACHINE TENDER --- Original Document --- 07/27/24 AUDIOLOGY CLINIC: Dx CODE: Z46.1- Encounter for Fitting/Programming Hearing Aid(s); H90.3- Sensorineural Hearing Loss, Bilateral APPOINTMENT TYPE: Hearing Aid Fitting SUBJECTIVE (S): The patient was seen for hearing aid fitting and issuance. He had previously been evaluated and found to exhibit significant hearing loss for which amplification was recommended. He is a previous user of [employer] AI RICs. How does the patient best learn? Verbal instruction, demonstration Does the patient have any cultural and sabianism beliefs, emotional barriers, physical or cognitive limitations, and communication barriers which may impact his ability to learn? No Desire and motivation to learn? Good OBJECTIVE (O): Physical fit of hearing aids was good. Patient verified comfort. Verification of an appropriate acoustic response was obtained using Real Ear measurements (speech mapping) and NAL-NL2 targets. The patient reported good subjective benefit as well. Feedback logistics project manager was run. Hearing aids were found to be meeting targets adequately and MPO was not exceeding estimated UCL. Settings stored in QUAN. ASSESSMENT (A): The following devices were issued: Make: Melissa Model: Edge AI MAGALY RT MP Right Serial Number: [id number] Left Serial Number: [id number] Battery size: RECHARGEABLE Warranty ends: 08/02/27 Trial Period ends: 12/30/24 Domes/Wax guards: Hear Clear Earmold: lucite canal lock*, medium vent Senior Business Broker: size 4 P Program(s): Automatic Button(s): Short press= right raise, left lower Long press= on/off Fitting Formula: NAL-NL2 Counseling was completed throughout todays appointment using a standardized curriculum that includes but is not limited to; realistic expectations with amplification in adverse listening environments, acclimatization to own voice and environmental sounds (following real-ear measurements), the importance of consistent use of amplification, proper insertion/removal, care and maintenance (including wax guards/domes if applicable), signal and alerts of devices, and charging/batteries. The was provided the opportunity to practice in office and reports confidence/understanding in all items reviewed. Time Spent= 20 minutes The patient was informed of and signed/agreed to [place] policy on hearing aid issuance: Yes Users are responsible for the maintenance and security of their devices. Determination of need to replace a hearing aid is made by the [place] wax coating machine tender. Hearing aids will not be replaced in cases of neglect, abuse, or excessive loss. Items issued are for personal use only. Prognosis for successful hearing aid use is good. *Edwards reports the canal lock makes his ear sore after time and would like to switch to canal earmolds. These were ordered with impressions on file. PLAN (P): 1. When new canal earmolds arrive can be scheduled for a 30 minute appointment in [facility]. 2. The International Outcome Inventory-Hearing Aids (IOI-WRAY) will be mailed to the in four weeks. He was asked to complete and mail back to clinic after completion. Patient Education Education provided on the following topics: Hearing aid use, care, maintenance Education provided to: P Response to Education: TREVOR CAREY, PI Lopez Patient P Family F Significant Other SO Verbalizes Understanding VU Returns Demonstration RD Performs Independently PI Lacks Comprehension LC Refused Education RE Not Applicable NA /mike/ NEHA ANTHONY STAFF CROP SPECIALIST Signed: 07/27/2024 13:40 LEV ALANIS [place] [facility] [place] [facility] Jul 27, 2024 07:27 AM AUDIOLOGY E & M NOTE: LOCAL TITLE: AUDIOLOGY CLINIC STANDARD TITLE: AUDIOLOGY E & M NOTE DATE OF NOTE: JUL 27, 2024@07:27 ENTRY DATE: JUL 27, 2024@07:27:16 AUTHOR: NEHA ANTHONY COSIGNER: URGENCY: STATUS: COMPLETED AUDIOLOGY CLINIC Has ADDENDA Dx CODE: Z46.1- Encounter for Fitting/Programming Hearing Aid(s); H90.3- Sensorineural Hearing Loss, Bilateral APPOINTMENT TYPE: Hearing Aid Fitting SUBJECTIVE (S): The patient was seen for hearing aid fitting and issuance. He had previously been evaluated and found to exhibit significant hearing loss for which amplification was recommended. He is a previous user of [employer] (formerly [employer]) RICs. How does the patient best learn? Verbal instruction, demonstration Does the patient have any cultural and sabianism beliefs, emotional barriers, physical or cognitive limitations, and communication barriers which may impact his ability to learn? No Desire and motivation to learn? Good OBJECTIVE (O): Physical fit of hearing aids was good. Patient verified comfort. Verification of an appropriate acoustic response was obtained using Real Ear measurements (speech mapping) and NAL-NL2 targets. The patient reported good subjective benefit as well. Feedback logistics project manager was run. Hearing aids were found to be meeting targets adequately and MPO was not exceeding estimated UCL. Settings stored in QUAN. ASSESSMENT (A): The following devices were issued: Make: Melissa Model: Edge AI MAGALY RT MP Right Serial Number: [id number] Left Serial Number: [id number] Battery size: RECHARGEABLE Warranty ends: 08/02/27 Trial Period ends: 12/30/24 Domes/Wax guards: Hear Clear Earmold: lucite canal lock*, medium vent Senior Business Broker: size 4 P Program(s): Automatic Button(s): Short press= right raise, left lower Long press= on/off Fitting Formula: NAL-NL2 Counseling was completed throughout todays appointment using a standardized curriculum that includes but is not limited to; realistic expectations with amplification in adverse listening environments, acclimatization to own voice and environmental sounds (following real-ear measurements), the importance of consistent use of amplification, proper insertion/removal, care and maintenance (including wax guards/domes if applicable), signal and alerts of devices, and charging/batteries. The was provided the opportunity to practice in office and reports confidence/understanding in all items reviewed. Time Spent= 20 minutes The patient was informed of and signed/agreed to [place] policy on hearing aid issuance: Yes Users are responsible for the maintenance and security of their devices. Determination of need to replace a hearing aid is made by the [place] wax coating machine tender. Hearing aids will not be replaced in cases of neglect, abuse, or excessive loss. Items issued are for personal use only. Prognosis for successful hearing aid use is good. *Edwards reports the canal lock makes his ear sore after time and would like to switch to canal earmolds. These were ordered with impressions on file. PLAN (P): 1. When new canal earmolds arrive can be scheduled for a 30 minute appointment in [facility]. 2. The International Outcome Inventory-Hearing Aids (IOI-WRAY) will be mailed to the in four weeks. He was asked to complete and mail back to clinic after completion. Patient Education Education provided on the following topics: Hearing aid use, care, maintenance Education provided to: P Response to Education: AURELIO, TREVOR, PI Lopez Patient P Family F Significant Other SO Verbalizes Understanding VU Returns Demonstration RD Performs Independently PI Lacks Comprehension LC Refused Education RE Not Applicable NA /mike/ ENHA ANTHONY STAFF CROP SPECIALIST Signed: 07/27/2024 13:40 08/08/2024 ADDENDUM STATUS: COMPLETED Canal earmolds received and certified. Alerting the AMSA to contact the to schedule a 30 minute HT appointment in [facility]. RTC entered. Earmolds placed in the black cabinet. /es/ LEV ALANIS Audiology Health Materials Planner/Production Planner Signed: 08/08/2024 08:18 Receipt Acknowledged By: 08/08/2024 08:26 /es/ DL JIMENES ADVANCED SIZING MACHINE TENDER 08/14/2024 ADDENDUM STATUS: COMPLETED Appointment scheduled on 08/14/2024. Earmolds placed in the cary cabinet. /mike/ LEV ALANIS Audiology Health Materials Planner/Production Planner Signed: 08/14/2024 08:19 09/07/2024 ADDENDUM STATUS: COMPLETED returned IOI-WRAY Outcome Measure to the clinic via mail with an overall score of 27 Based on this score: i. No follow-up call is indicated _XX_ ii. Follow-up call is indicated and fitting clinician will be notified __ /es/ LEV ALANIS Audiology Health Materials Planner/Production Planner Signed: 09/07/2024 11:00 NEHA ANTHONY [facility]
--- OUTSIDE RECORDS SUMMARY | 2024-08-14 04:30 | XMS_ITS ---
Author Name [facility] [place] Organization [facility] [place] [place] Address [address] [place] [address] Care Team Providers Care Office Administration Instructor Name Role Phone SANDY NAVA Primary Care [...] Name Patient's Relationship to Policy Chua [employer] SU[employer] [facility] [employer] Feb 22, 2010 [id number] ANASTASIA LEMOS PATIENT [employer] MEDIC[employer] SU[employer] [facility] [employer] Feb 22, 2010 [id number] ANASTASIA LEMOS PATIENT SAVE RX PRESCRIPT [facility] [employer] Mar 25, 2012 [id number] ANASTASIA LEMOS PATIENT Selected Encounter This section includes the information on record at [place] for the Encounter. Date/Time Encounter Type Encounter Description Reason Provider Source Aug 14, 2024 08:30 AM HEARING AID FITTING/CHECKIN G AUDIOLOGY ICD-10-CM Z46.1 Encounter for fitting and adjustment of hearing aid TRIPP CIFUENTES [facility] Encounter Template Text not used by [place] Assessments - Encounter Diagnoses This section includes the primary and secondary diagnoses documented for the Encounter. Date/Time Primary/Secondary Diagnosis Diagnosis Name Provider Source Aug 14, 2024 11:02 AM PRIMARY Encounter for fitting and adjustment of hearing aid LEANDRA CIFUENTES [facility] Aug 14, 2024 11:02 AM SECONDARY Sensorineural hearing loss, bilateral LIA CIFUENTESJazmin Jimenes [facility] Plan of Treatment: Future Appointments (+ 6 months) and Future Tests (+/- 45 days) The Plan of Treatment section includes future care activities for the patient from all [place] [facility]. This section includes future appointments and future orders which are active, pending or scheduled. Future Appointments This section includes appointments that were scheduled to occur 6 months from the date of the Encounter, up to a maximum of 20 appointments. The data comes from all [facility]. Appointment Date/Time Appointment Type Appointme nt Facility Name Aug 18, 2024 02:30 PM AMBULATORY - PSYCHIATRY [facility] Sep 05, 2024 02:00 PM AMBULATORY - MEDICINE [facility] Sep 28, 2024 02:00 PM AMBULATORY - MEDICINE [facility] Oct 06, 2024 03:00 PM AMBULATORY - MEDICINE [facility] Oct 09, 2024 08:00 AM [facility] Oct 13, 2024 12:00 PM [facility] Nov 14, 2024 03:00 PM [facility] Nov 29, 2024 11:30 AM AMBULATORY - PSYCHIATRY [facility] Jan 09, 2025 03:00 PM AMBULATORY - MEDICINE [facility] Active, Pending, and Scheduled Orders This section includes a listing of several types of active, pending, and scheduled orders, including clinic medications orders, diagnostic test orders, procedure orders and consult orders; where the start date of the order is 45 days before the date of the Encounter or 45 days after the date of theEncounter. The data comes from all [facility]. Test Date/Time Test Type Test Details Facility Name Sep 28, 2024 04:57 PM Consult Order DERMATOLOG Y/NHM (OUTPT) Cons Environmental Department Manager's Choice [facility] Social History: Smoking Status (Most current) and Tobacco Use (All prior to encounter date) This section includes the most current, and the historical, smoking and tobacco- related health factors from the [place] facility where the Encounter took place. Current Smoking Status This section includes the most current smoking, or tobacco-related health factor, from the [place] facility where the Encounter took place. Date/Time Current Smoking Status Comment Sarahy ity Nov 16, 2001 03:40 PM HISTORY OF SMOKING quit in 1972 [facility] Tobacco Use History This section includes a history of the smoking, or tobacco-related health factors, that were collected on or before the date of the Encounter. The data comes from the [place] facility where the Encounter took place. Date/Time Smoking Status/Tobacco Use Comment F acalison May 20, 2001 03:39 PM QUIT TOBACCO USE > 7 YEARS AGO [facility] Encounter Notes: All associated encounter notes This section contains the clinical notes associated to the Encounter. Date/Time Encounter Note(s) Provider Source Aug 14, 2024 10:45 AM AUDIOLOGY E & M NOTE: LOCAL TITLE: AUDIOLOGY CLINIC STANDARD TITLE: AUDIOLOGY E & M NOTE DATE OF NOTE: AUG 14, 2024@10:45 ENTRY DATE: AUG 14, 2024@10:45:56 AUTHOR: TRIPP CIFUENTESIGNER: URGENCY: STATUS: COMPLETED Dx: Sensorineural hearing loss, bilateral [place] was seen today for a hearing aid follow-up appointment to picker / packer canal style MAGALY earmolds. He was fit with beqom AI MAGALY RT MP hearing aids on 07/27/24. expressed the following issues/concerns: The left hearing aid is not as loud as the right aid, he would like to have his hearing aids paired to the Public [employer] Cecile, and he expressed dissatisfaction due to reported difficulty getting through to the Audiology department on the phone last week. The new earmolds were attached to 's hearing aids and fit looks excellent. He reported noting significant improvement in the comfort. Overall gain was increased one step for the left hearing aid. [place] did not have the Public Solution Cecile installed on his phone and could not remember his Apple password to download it, therefore he was unable to install the Cecile during today's appointment. The aids however were paired successfully to his cell phone in his settings. He was given the [employer] support phone number to call should he have further questions about installing the Cecile. [place] was assured several times during today's appointment that the direct phone number to Audiology goes to the patient coordinator front desk. He insisted that he kept getting re-routed by an answering service to Optometry when calling the direct Audiology phone number. Corby was told that even if he called the direct Audiology line outside of business hours he would be able to leave a message. He continued to express dissatisfaction with his phone call experience last week. Corby was told he may speak to the patient advocate if he pleases. He will contact the clinic as needed. /mike/ Ibeth Meraz, [facility] Contamination Consultant Signed: 08/14/2024 15:49 TRIPP CIFUENTES [facility] TRN [facility]
--- OUTSIDE RECORDS SUMMARY | 2024-08-18 10:30 | XMS_ITS | Encounter Summary ---
Author Name [facility] [place] [facility] [place] Organization [facility] [place] Address [address] [place] [address] Care Team Providers Care Baseball Glove Shaper Name Role Phone SANDY NAVA Primary Care [...] Chua [employer] MEDIC[employer] SUPPLEMEN [employer] Feb 22, 2010 [id number] ANASTASIA LEMOS PATIENT [employer] MEDIC[employer] SUPPLEMEN [place] [facility] Feb 22, 2010 [id number] ANASTASIA LEMOS PATIENT SAVE RX PRESCRIPT ION [facility] Mar 25, 2012 [id number] ANASTASIA LEMOS PATIENT Selected Encounter This section includes the information on record at [place] for the Encounter. Date/Time Encounter Type Encounter Description Reason Provider Source Aug 18, 2024 02:30 PM OFFICE O/P EST MOD 30 MIN [facility] - IND ICD-10-CM F43.12 Post-traumatic stress disorder, chronic ARTI JALLOH IHJazmin Encounter Template Text not used by [facility] Assessments - Encounter Diagnoses This section includes the primary and secondary diagnoses documented for the Encounter. Date/Time Primary/Secondary Diagnosis Diagnosis Name Provider Source Aug 18, 2024 04:35 PM PRIMARY Post-traumatic stress disorder, chronic LOUISE JALLOH Plan of Treatment: Future Appointments (+ 6 months) and Future Tests (+/- 45 days) The Plan of Treatment section includes future care activities for the patient from all [place] treatmentfacilities. This section includes future appointments and future orders which are active, pending or scheduled. Future Appointments This section includes appointments that were scheduled to occur 6 months from the date of the Encounter, up to a maximum of 20 appointments. The data comes from all [place] treatment facilities. Appointment Date/Time Appointment Type Appointme nt Facility Name Sep 05, 2024 02:00 PM AMBULATORY - MEDICINE [facility] Sep 28, 2024 02:00 PM [facility] [place] [facility] Oct 06, 2024 03:00 PM [facility] Oct 09, 2024 08:00 AM [facility]ORY - [facility] Oct 13, 2024 12:00 PM [facility]ATORY - [facility] Nov 14, 2024 03:00 PM [facility]ATORY [facility]ICINE [facility] Nov 29, 2024 11:30 AM AMBULATORY - PSYCHIATRY [facility] Jan 09, 2025 03:00 PM AMBULATORY - MEDICINE [facility] Active, Pending, and Scheduled Orders This section includes a listing of several types of active, pending, and scheduled orders, including clinic medications orders, diagnostic test orders, procedure orders and consult orders; where the start date of the order is 45 days before the date of the Encounter or 45 days after the date of theEncounter. The data comes from all [facility]. Test Date/Time Test Type Test Details Facility Name Sep 28, 2024 04:57 PM Consult Order DERMATOLOG Y/[facility] (OUTPT) Cons Web Architect's Choice [place] [facility] Social History: Smoking Status (Most current) and Tobacco Use (All prior to encounter date) This section includes the most current, and the historical, smoking and tobacco- related health factors from the [place] facility where the Encounter took place. Current Smoking Status This section includes the most current smoking, or tobacco-related health factor, from the [place] facility where the Encounter took place. Date/Time Current Smoking Status Comment Facil ity Jun 13, 2024 02:00 PM VA-TOBACCO USE FORMER CIGARETTES [place] Tobacco Use History This section includes a history of the smoking, or tobacco-related health factors, that were collected on or before the date of the Encounter. The data comes from the [place] facility where the Encounter took place. Date/Time Smoking Status/Tobacco Use Comment F acility Jun 13, 2024 02:00 PM VA-TOBACCO USE FOR LEEANNE CIGARETTES [place] May 26, 2023 02:00 PM VA-TOBACCO FORMER USER [place] May 26, 2023 02:00 PM VA-TOBACCO QUIT 15 YRS OR MORE [place] Apr 01, 2022 03:30 PM VA-TOBACCO FORMER USER [place] Apr 01, 2022 03:30 PM VA-TOBACCO QUIT 15 YRS OR MORE [place] Apr 04, 2021 02:00 PM VA-TOBACCO FORMER USER [place] Apr 04, 2021 02:00 PM VA-TOBACCO QUIT 15 YRS OR MORE [place] Apr 04, 2020 02:30 PM VA-TOBACCO FORMER USER [place] Apr 04, 2020 02:30 PM VA-TOBACCO QUIT 15 YRS OR MORE [place] Mar 06, 2019 02:44 PM VA-TOBACCO FORMER USER [place] Mar 06, 2019 02:44 PM VA-TOBACCO QUIT 15 YRS OR MORE [place] Sep 24, 2017 10:35 AM VA-TOBACCO FORMER USER [place] Sep 24, 2017 10:35 AM VA-TOBACCO QUIT 15 YRS OR MORE [place] Aug 30, 2017 03:05 PM QUIT TOBACCO USE > 7 YEARS AGO [place] June 29, 2016 08:41 AM QUIT TOBACCO USE > 7 YEARS AGO [place] July 10, 2015 01:03 PM QUIT TOBACCO USE > 7 YEARS AGO quit 23 years ago [place] Apr 18, 2015 01:45 PM QUIT TOBACCO USE 1-7 YEARS AGO [place] Encounter Notes: All associated encounter notes This section contains the clinical notes associated to the Encounter. Date/Time Encounter Note(s) Provider Source Aug 18, 2024 02:32 PM PSYCHIATRY NOTE: LOCAL TITLE: PSYCHIATRY NOTE STANDARD TITLE: PSYCHIATRY NOTE DATE OF NOTE: AUG 18, 2024@14:32 ENTRY DATE: AUG 18, 2024@14:32:07 AUTHOR: LOUISE JALLOH EXP COSIGNER: URGENCY: STATUS: COMPLETED 35 min for encounter, including chart review, interview, charting chart reviewed Pt relatively stable. Generally good mood. Denies recent depression, except occ mild sx's. PTSD sx's/irritability generally improved, although can worsen w stress. Affect brightens appropriately, full range. He denies SI and violent ideation. No h/o psychotic symptoms. Well organized. No paranoid or delusional content presented. Less obsessive quality. Future oriented. Cognitive exam grossly intact/unchanged. Good self-care. No slowing noted. Has interests, maintain home. Sleep remains improved w trazodone. Pt again satisfied w response to current psych meds --he feels significant improvement with mood and PTSD symptoms, and he again wants to continue the meds the same, he does not feel he needs increase Denies med side effects. Denies next-day sedation. Reports compliance Denies alcohol abuse -- reports about 1 [...] source for the followin. Seborrheic Dermatitis (SCT [id number]) 2. Exsmoker 3. Full thickness rotator cuff tear 4. Colonoscopy Screening 5. Type 2 diabetes mellitus controlled by diet 6. Primary Care Physician 7. Insomnia 8. Erectile dysfunction (SNOMED CT [id number]) 9. Depression 10. Chronic post-traumatic stress disorder (SNOMED CT [id number]) 11. Hyperlipidemia 12. Skin Disorder-Psoriasis/Rosacea 13. History of alcohol abuse 14. Anxiety disorder (SNOMED CT [id number]) Active Outpatient Medications (including Supplies): Active Outpatient [...] PLAN: Performed careful risk assessment. See C-SSRS below. The pt is probably low risk for suicide or violence -- the patient denied suicidal and violent ideation, but the [employer] Crisis Line information and number were reviewed w patient as a precaution. The patient also understands to call 911 or to go to ER in the event of an emergency. encourage to continue w therapist[facility] at the [facility] -- for coping w stress, and for PTSD and anger management -- although pt reluctant to return to therapy - he prefers informal meetings with other ts Previously offered pt anger managemnt grp in [...] pt also has HUONG grp available in [facility]; again, pt does not want [...] previously declined alpha stim trial for anxiety/ptsd previously offered considering PTSD unit at some point - pt declines this Depression Screening: Perform PHQ-2 A PHQ-2 screen was performed. The score was 0 which is a negative screen for depression. Over the past two weeks, how often have you been bothered by the following problems? 1. Little interest or pleasure in doing things Not at all 2. Feeling down, depressed, or hopeless Not at all Medication Reconciliation: Outpatient: Has the patient been [...] whether with a VA or non-VA provider. Suicide Screen: C-SSRS Screening [place]-Suicide Severity Rating Scale (C-SSRS Screener) 1. Over [...] due to responses to other questions. /mike/ LOUISE JALLOH MD STAFF PSYCHIATRIST Signed: 08/18/2024 16:35 LOUISE JALLOH
--- OUTSIDE RECORDS SUMMARY | 2024-09-05 10:00 | XMS_ITS | Encounter Summary ---
Author Name [facility] [place] Organization [facility] [place] [facility] [place] Address [address] [place] [address] Care Team Providers Care Mortgage Banker Name Role Phone SANDY NAVA Primary Care [...] Chua [employer] SU[employer]LE[employer] [facility] Feb 22, 2010 NEEW [id number] ANASTASIA LEMOS PATIENT [employer] SU[employer] PR[facility]I [facility] Feb 22, 2010 [id number] ANASTASIA LEMOS PATIENT SAVE RX PRESCRIPT ION [facility] Mar 25, 2012 [id number] ANASTASIA LEMOS PATIENT Selected Encounter This section includes the information on record at [place] for the Encounter. Date/Time Encounter Type Encounter Description Reason Provider Source Sep 05, 2024 02:00 PM OFFICE O/P EST MOD 30 MIN PODIATRY ICD-10-CM L60.0 Ingrowing JUSTINE Cooper IHJazmin Encounter Template Text not used by [facility] Assessments - Encounter Diagnoses This section includes the primary and secondary diagnoses documented for the Encounter. Date/Time Primary/Secondary Diagnosis Diagnosis Name Provider Source Sep 05, 2024 02:36 PM PRIMARY Ingrowing nail JUSTINE ALLRED [place] Sep 05, 2024 02:36 PM SECONDARY Pain in left foot JUSTINE ALLRED [place] Sep 05, 2024 02:36 PM SECONDARY Pain in left toe(s) JUSTINE ALLRED [place] Sep 05, 2024 02:36 PM SECONDARY Pain in right foot JUSTINE ALLRED [place] Sep 05, 2024 02:36 PM SECONDARY Pain in right toe(s) JUSTINE ALLRED [place] Sep 05, 2024 02:36 PM SECONDARY Plantar fascial fibromatosis JUSTINE ALLRED [place] Sep 05, 2024 02:36 PM SECONDARY Type 2 diabetes mellitus without complications JUSTINE ALLRED Plan of Treatment: Future Appointments (+ 6 months) and Future Tests (+/- 45 days) The Plan of Treatment section includes future care activities for the patient from all [place] treatmentfacilities. This section includes future appointments and future orders which are active, pending or scheduled. Future Appointments This section includes appointments that were scheduled to occur 6 months from the date of the Encounter, up to a maximum of 20 appointments. The data comes from all [place] treatment facilities. Appointment Date/Time Appointment Type Appointme nt Facility Name Sep 28, 2024 02:00 PM AM[place]INE [place] [facility] Oct 06, 2024 03:00 PM AMBULATORY - MEDICINE [facility] Oct 09, 2024 08:00 AM AMBULATORY - MEDICINE [facility] Oct 13, 2024 12:00 PM [facility] Nov 14, 2024 03:00 PM [facility] - MEDICINE [facility] Nov 29, 2024 11:30 AM AMBULATORY - PSYCHIATRY [facility] Jan 09, 2025 03:00 PM AMBULATORY - MEDICINE [facility] Active, Pending, and Scheduled Orders This section includes a listing of several types of active, pending, and scheduled orders, including clinic medications orders, diagnostic test orders, procedure orders and consult orders; where the start date of the order is 45 days before the date of the Encounter or 45 days after the date of theEncounter. The data comes from all [place] treatment [facility]. Test Date/Time Test Type Test Details Facility Name Sep 28, 2024 04:57 PM Consult Order DERMATOLOG Y/NHM (OUTPT) Cons Script Manager's Choice [facility] Lab Results: +/- 30 days of the encounter This section includes the Chemistry and Hematology Lab Results on record with [place] for the patient. Radiology Reports and Pathology Reports are provided separately, in subsequent sections. Lab Results This section contains the Chemistry/Hematology Results that were resulted 30 days before or 30 daysafter the date of the Encounter. Date/Time Source Result Type Result - Unit Interpretation Reference Range Specimen Type Comment Sep 20, 2024 07:55 AM [facility] HEMOGLOBIN A1C PANEL BLOOD Specimen Type: BLOOD Comment: Values obtained from A1C measurements can vary. For atypical A1C assays, a reported value of 7.0 could actually be between 6.72 and 7.28 if measured by a reference method. A reported value of 9.0 could actually be between 8.73 and 9.27. Ref: http://www.ngsp .org/CAPdata.as p Ordering Provider: SANDY NAVA Report Released Date/Time: Sep 29, 2023 02:30 PM Reporting Lab: [facility] [address] [facility] [address] Performing Lab: [address] [address] HEMOGLOBIN A1C 6.2 H 4.0-5.6 Sep 20, 2024 07:55 AM [facility] LIVER FUNCTION SERUM Specimen Type: SERUM No comment entered. Ordering Provider: SANDY NAVA Report Released Date/Time: Sep 29, 2023 02:30 PM Reporting Lab: [facility] [address] [facility] [id number] Performing Lab: [address] [address] PROTEIN,TOTAL 7.1 g/dL 6.4-8.3 ALBUMIN 3.8 g/dL 3.2-4.6 ALKALINE PHOSPHATASE 111 U/L 40-150 AST 20 U/L 5-34 ALT 14 U/L 0-55 BILIRUBIN, TOTAL 0.4 mg/dL 0.2-1.2 Sep 20, 2024 07:55 AM [facility] MICROALBUMIN CREATININE RATIO PANEL URINE Spe cimen Type: URINE No comment entered. Ordering Provider: SANDY NAVA Report Released Date/Time: Sep 29, 2023 02:30 PM Reporting Lab: [facility] [address] [facility] [address] Performing Lab: [address] [address] MICROALBUMIN/CREATININE RATIO 16.3 mg/g 0-29.9 MICROALBUMIN,QUANTITATIVE 3.3 mg/dL RR U NAVAIL CREATININE URINE 202.56 mg/dL H 63-166 Sep 20, 2024 07:55 AM [facility] LIPID PANEL FASTING SERUM Specimen Type: SERU M No comment entered. Ordering Provider: SANDY NAVA Report Released Date/Time: Sep 29, 2023 02:30 PM Reporting Lab: [address] [address] Performing Lab: [address] [address] CHOLESTEROL 263 mg/dL H TRIGLYCERIDE 123 mg/dL 0-150 LDL calculated 185 mg/dL H 0-129 CHOL/HDL 5.0 HDL CHOLESTEROL 53 mg/dL >40 Sep 20, 2024 07:55 AM [facility] BASIC METABOLIC PANEL (fasting) SERUM Specime n Type: SERUM No comment entered. Ordering Provider: SANDY NAAV Report Released Date/Time: Sep 29, 2023 02:30 PM Reporting Lab: [facility] [address] [facility] [address] Performing Lab: [address] [address] UREA NITROGEN 20 mg/dL 8-26 GLUCOSE 128 mg/dL H 65-100 SODIUM 138 mmol/L 136-145 POTASSIUM 3.9 mmol/L 3.5-5.1 CHLORIDE 104 mmol/L 98-107 CO2 27 meq/L 23-31 CALCIUM 8.9 mg/dL 8.8-10 CREATININE, Serum 1.40 mg/dL H 0.72-1.25 eGFR(CKD-EPI 2020) 52 mL/min L >60 Sep 20, 2024 07:55 AM [place] [facility] CBC BLOOD Specimen Type: BLOOD No comment entered. Ordering Provider: SANDY NAVA Report Released Date/Time: Sep 29, 2023 02:30 PM Reporting Lab: [facility] [address] [facility] [address] Performing Lab: [facility] [address] [facility] [address] WBC 5.67 10*3/uL 4.50-11.00 RBC 4.92 10*6/uL 4.23-5.66 HGB 14.0 g/dL 12.8-17 HCT 43.0 39.2-50.4 MCV 87.4 fL 82-99 MCHC 32.6 g/dL 30.8-35.1 PLT 239 10*3/uL 140-360 MPV 8.8 fL L 9.2-12.4 RDW-CV 13.3 12.0-16.0 MCH 28.5 pg 26.2-32.6 Social History: Smoking Status (Most current) and Tobacco Use (All prior to encounter date) This section includes the most current, and the historical, smoking and tobacco- related health factors from the [place] facility where the Encounter took place. Current Smoking Status This section includes the most current smoking, or tobacco-related health factor, from the [place] facility where the Encounter took place. Date/Time Current Smoking Status Comment Sarahy itzoraida Jun 13, 2024 02:00 PM VA-TOBACCO USE FORMER CIGARETTES [place] Tobacco Use History This section includes a history of the smoking, or tobacco-related health factors, that were collected on or before the date of the Encounter. The data comes from the [place] facility where the Encounter took place. Date/Time Smoking Status/Tobacco Use Comment F acility Jun 13, 2024 02:00 PM VA-TOBACCO USE FOR LEEANNE CIGARETTES [place] May 26, 2023 02:00 PM VA-TOBACCO FORMER USER [place] May 26, 2023 02:00 PM VA-TOBACCO QUIT 15 YRS OR MORE [place] Apr 01, 2022 03:30 PM VA-TOBACCO FORMER USER [place] Apr 01, 2022 03:30 PM VA-TOBACCO QUIT 15 YRS OR MORE [place] Apr 04, 2021 02:00 PM VA-TOBACCO FORMER USER [place] Apr 04, 2021 02:00 PM VA-TOBACCO QUIT 15 YRS OR MORE [place] Apr 04, 2020 02:30 PM VA-TOBACCO FORMER USER [place] Apr 04, 2020 02:30 PM VA-TOBACCO QUIT 15 YRS OR MORE [place] Mar 06, 2019 02:44 PM VA-TOBACCO FORMER USER [place] Mar 06, 2019 02:44 PM VA-TOBACCO QUIT 15 YRS OR MORE [place] Sep 24, 2017 10:35 AM VA-TOBACCO FORMER USER [place] Sep 24, 2017 10:35 AM VA-TOBACCO QUIT 15 YRS OR MORE [place] Aug 30, 2017 03:05 PM QUIT TOBACCO USE > 7 YEARS AGO [place] June 29, 2016 08:41 AM QUIT TOBACCO USE > 7 YEARS AGO [place] July 10, 2015 01:03 PM QUIT TOBACCO USE > 7 YEARS AGO quit 23 years ago [place] Apr 18, 2015 01:45 PM QUIT TOBACCO USE 1-7 YEARS AGO [place] Encounter Notes: All associated encounter notes This section contains the clinical notes associated to the Encounter. Date/Time Encounter Note(s) Provider Source Sep 05, 2024 09:07 AM PODIATRY NOTE: LOCAL TITLE: PODIATRY NOTE STANDARD TITLE: PODIATRY NOTE DATE OF NOTE: SEP 05, 2024@09:07 ENTRY DATE: SEP 05, 2024@09:07:16 AUTHOR: JUSTINE ALLRED COSIGNER: URGENCY: STATUS: COMPLETED WHEN I INQUIRE ABOUT COVID VACCINE HE DID NOT WISH TO REPLY IN THE AFFIRMATIVE TO HIS DESIRE TO ABSTAIN AND/OR RECEIVE IN THE FUTURE. LAST SEEN FOR TREATMENT: 07/25/2024 S: Pt. is a 79 yo alert [facility] MALE who IS SEEN for CONTINUED [...] present physical-medical status. Protective sensation utilizing a [place]-Pablo lOg monofilament is 10/10 bilateral. A: Clinical Impression is painful onychocryptic HALLUX NAILS BILATERAL in the presence of PAIN & TYPE II DM.Also plantar fasciitis bilat P: Treatment consists of TRIMMING-reduction of all nails via manual & electric means with excision of the offending nail borders and CURETTING THE NAIL GROOVES AND HE REMAINS VERY PLEASED WITH THE END RESULT AND IS PLEASED TO BE SEEN FOR FOLLOW-UP CARE. casted for custom orthoses at this visit as well. All care rendered without complications & the patient is progressing well after podiatric care this date and will be scheduled for periodic podiatric care in an attempt to prevent future complications. Treatment by a non-professional could be extremely hazardous to the patient's wellbeing due to the underlying medical conditions. RTC:( 09/05 & 10/06 @ 3PM-for nail surgery left both borders & 11/14 @ 3pm for regular nail care.[facility]book prefers later appt.) *DISCUSSED NEW PROTOCOLS AND CALLED LEV TODAY FOR RESCHEDULING I DISCUSSED THE FINDINGS & PLAN WITH PATIENT (UNCHANGED SINCE PREVIOUS VISIT) & PATIENT AGREES AND UNDERSTANDS PLAN-RECEIVED MIRROR PATIENT HAS REQUESTED NAIL SURGERY LEFT FOOT FOR THE FUTURE & WILL NEED TO BE CASTED TODAY WELL. /mike/ JUSTINE ALLRED DPM TAPERING MACHINE OPERATOR Signed: 09/05/2024 14:37 JUSTINE ALLRED
--- OUTSIDE RECORDS SUMMARY | 2024-09-28 10:00 | XMS_ITS | Encounter Summary ---
Author Name [facility] [place] Organization [facility] [place] Address [address] [place] [address] Care Team Providers Care Extension Service Agent Name Role Phone SANDY NAVA Primary Care [...] [employer] SU[employer] PRACHI [facility] Feb 22, 2010 [id number] ANASTASIA LEMOS PATIENT [employer] PR[facility]I [facility] Feb 22, 2010 [id number] ANASTASIA LEMOS PATIENT SAVE RX PRESCRIPT ION [facility] Mar 25, 2012 [id number] ANASTASIA LEMOS PATIENT Selected Encounter This section includes the information on record at [place] for the Encounter. Date/Time Encounter Type Encounter Description Reason Provider Source Sep 28, 2024 02:00 PM OFFICE O/P EST LOW 20 MIN PRIMARY CARE/MEDICINE ICD-10-CM E11.9 Type 2 diabetes mellitus without complications SANDY NAVA Encounter Template Text not used by [place] Assessments - Encounter Diagnoses This section includes the primary and secondary diagnoses documented for the Encounter. Date/Time Primary/Secondary Diagnosis Diagnosis Name Provider Source Sep 28, 2024 03:13 PM PRIMARY Type 2 diabetes mellitus without complications SANDY NAVAJazmin MENDOZA Sep 28, 2024 03:13 PM SECONDARY Hyperlipidemia, unspecified SANDY NAVA REJI Plan of Treatment: Future Appointments (+ [...] Date/Time Appointment Type Appointme nt Facility Name Oct 06, 2024 03:00 PM [facility] Oct 09, 2024 08:00 AM [facility] Oct 13, 2024 12:00 PM [facility] Nov 14, 2024 03:00 PM [facility] Nov 29, 2024 11:30 AM AMBULATORY - PSYCHIATRY [facility] Jan 09, 2025 03:00 PM AMBULATORY - MEDICINE [facility] Active, Pending, and Scheduled Orders [...] data comes from all [place] treatment facilities. Test Date/Time Test Type Test Details Facility Name Sep 28, 2024 04:57 PM Consult Order DERMATOLOG Y/NHM (OUTPT) Cons Electrolysis Engineer's Choice [facility] [employer] [facility] Lab Results: +/- 30 days of the [...] Type Comment Sep 20, 2024 07:55 AM [facility] HEMOGLOBIN A1C PANEL BLOOD Specimen Type: BLOOD [...] Sep 29, 2023 02:30 PM Reporting Lab: [address] [address] Performing Lab: [address] [address] HEMOGLOBIN A1C 6.2 H 4.0-5.6 Sep 20, 2024 07:55 AM [facility] LIVER FUNCTION SERUM Specimen Type: SERUM No comment entered. Ordering Provider: SANDY NAVA Report Released Date/Time: Sep 29, 2023 02:30 PM Reporting Lab: [address] [address] Performing Lab: [address] [address] PROTEIN,TOTAL 7.1 g/dL 6.4-8.3 ALBUMIN 3.8 g/dL 3.2-4.6 ALKALINE PHOSPHATASE 111 U/L 40-150 AST 20 U/L 5-34 ALT 14 U/L 0-55 BILIRUBIN, TOTAL 0.4 mg/dL 0.2-1.2 Sep 20, 2024 07:55 AM [facility] MICROALBUMIN CREATININE RATIO PANEL URINE Spe cimen Type: URINE No comment entered. Ordering Provider: SANDY NAVA Report Released Date/Time: Sep 29, 2023 02:30 PM Reporting Lab: [address] [address] Performing Lab: [address] [address] MICROALBUMIN/CREATININE RATIO 16.3 mg/g 0-29.9 MICROALBUMIN,QUANTITATIVE 3.3 mg/dL RR U NAVAIL CREATININE URINE 202.56 mg/dL H 63-166 Sep 20, 2024 07:55 AM [facility] LIPID PANEL FASTING SERUM Specimen Type: SERU M No comment entered. Ordering Provider: SANDY NAVA Report Released Date/Time: Sep 29, 2023 02:30 PM Reporting [facility] [address] [facility] [address] Performing [facility]: [facility] [address] [facility] [address] CHOLESTEROL 263 mg/dL H TRIGLYCERIDE 123 mg/dL 0-150 LDL calculated 185 mg/dL H 0-129 CHOL/HDL 5.0 HDL CHOLESTEROL 53 mg/dL >40 Sep 20, 2024 07:55 AM [facility] BASIC METABOLIC PANEL (fasting) SERUM Specime n Type: SERUM No comment entered. Ordering Provider: SANDY NAVA Report Released Date/Time: Sep 29, 2023 02:30 PM Reporting [facility] [address] [address] Performing Lab: [facility] [address] [address] UREA NITROGEN 20 mg/dL 8-26 GLUCOSE 128 mg/dL H 65-100 SODIUM 138 mmol/L 136-145 POTASSIUM 3.9 mmol/L 3.5-5.1 CHLORIDE 104 mmol/L 98-107 CO2 27 meq/L 23-31 CALCIUM 8.9 mg/dL 8.8-10 CREATININE, Serum 1.40 mg/dL H 0.72-1.25 eGFR(CKD-EPI 2020) 52 mL/min L >60 Sep 20, 2024 07:55 AM [facility] CBC BLOOD Specimen Type: BLOOD No comment entered. Ordering Provider: SANDY NAVA Report Released Date/Time: Sep 29, 2023 02:30 PM Reporting [facility]: [facility] [address] [address] Performing Lab: [address] [address] WBC 5.67 10*3/uL 4.50-11.00 RBC 4.92 10*6/uL [...] 2024 02:00 PM VA-TOBACCO USE FORMER CIGARETTES [place] Tobacco Use History This section includes a history of the smoking, or tobacco-related health factors, that were collected on or before the date of the Encounter. The data comes from the [place] facility where the Encounter took place. Date/Time Smoking Status/Tobacco Use Comment F acility Jun 13, 2024 02:00 PM VA-TOBACCO USE FOR LEEANNE CIGARETTES [place] May 26, 2023 02:00 PM VA-TOBACCO FORMER USER [place] May 26, 2023 02:00 PM VA-TOBACCO QUIT 15 YRS OR MORE [place] Apr 01, 2022 03:30 PM VA-TOBACCO FORMER USER [place] Apr 01, 2022 03:30 PM VA-TOBACCO QUIT 15 YRS OR MORE [place] Apr 04, 2021 02:00 PM VA-TOBACCO FORMER USER [place] Apr 04, 2021 02:00 PM VA-TOBACCO QUIT 15 YRS OR MORE [place] Apr 04, 2020 02:30 PM VA-TOBACCO FORMER USER [place] Apr 04, 2020 02:30 PM VA-TOBACCO QUIT 15 YRS OR MORE [place] Mar 06, 2019 02:44 PM VA-TOBACCO FORMER USER [place] Mar 06, 2019 02:44 PM VA-TOBACCO QUIT 15 YRS OR MORE [place] Sep 24, 2017 10:35 AM VA-TOBACCO FORMER USER [place] Sep 24, 2017 10:35 AM VA-TOBACCO QUIT 15 YRS OR MORE [place] Aug 30, 2017 03:05 PM QUIT TOBACCO USE > 7 YEARS AGO [place] June 29, 2016 08:41 AM QUIT TOBACCO USE > 7 YEARS AGO [place] July 10, 2015 01:03 PM QUIT TOBACCO USE > 7 YEARS AGO quit 23 years ago [place] Apr 18, 2015 01:45 PM QUIT TOBACCO USE 1-7 YEARS AGO [place] Encounter Notes: All associated encounter notes This section contains the clinical notes associated to the Encounter. Date/Time Encounter Note(s) Provider Source Sep 28, 2024 02:28 PM PREVENTIVE MEDICIN E NURSING NOTE: LOCAL TITLE: CLINICAL REMINDERS/NURSING STANDARD TITLE: PREVENTIVE MEDICINE NURSING NOTE DATE OF NOTE: SEP 28, 2024@14:28 ENTRY DATE: SEP 28, 2024@14:28:24 AUTHOR: GISELL NICOLAS COSIGNER: URGENCY: STATUS: COMPLETED Advance Directive Screen MH AD: Patient does not have a completed advance directive on file at any facility, [facility] or outside. S/he is not interested in completing one at this time. The patient received education about Advance Directives and written notification of his/her rights. Falls & Incontinence Screen: Falls Screen: 4. No falls within the past year. Incontinence Screen No incontinence. Pneumococcal Conjugate Vaccine (PCV15/PCV20/PCV21): Refuses PCV vaccine Immunization: PNEUMOCOCCAL CONJUGATE, UNSPECIFIED FORMULATION Refusal Reason: PATIENT DECISION Patient refuses all immunization(s) in the PneumoPCV group Date Documented: 09/28/24 14:29 Influenza Immunization: No influenza vaccination was received during the recent influenza season. COVID-19 Immunization: Refused Moderna Monovalent COVID-19 vaccine Immunization: COVID-19 (MODERNA), MRNA, LNP-S, PF, 50 MCG/0.5 ML (AGES 12+ YEARS) Refusal Reason: PATIENT DECISION Patient refuses all immunization(s) in the COVID-19 group Date Documented: 09/28/24 14:29 Herpes Zoster (Shingles) Vaccine: The patient declines to receive the recommended dose of zoster (shingles) vaccine. Immunization: ZOSTER RECOMBINANT Refusal Reason: PATIENT DECISION Patient refuses all immunization(s) in the ZOSTER group Date Documented: 09/28/24 14:29 RSV Immunization: Respiratory Syncytial Virus (RSV) Vaccine: Refused NovusEdge (RSV vaccine, adjuvanted, Arexvy). Immunization: RSV, RECOMBINANT, PROTEIN SUBUNIT RSVPREF3, ADJUVANT RECONSTITUTED, 0.5 ML, PF Refusal Reason: PATIENT DECISION Patient refuses all immunization(s) in the RSV group Date Documented: 09/28/24 14:29 /mike/ GISELL NICOLAS LPN PACT 10 Signed: 09/28/2024 14:30 GISELL NICOLAS [place] Sep 28, 2024 01:36 PM PHYSICIAN NOTE: LOCAL TITLE: MD NOTE STANDARD TITLE: PHYSICIAN NOTE DATE OF NOTE: SEP 28, 2024@13:36 ENTRY DATE: SEP 28, 2024@13:36:46 AUTHOR: SANDY NAVA EXP COSIGNER: URGENCY: STATUS: COMPLETED HISTORY OF PRESENT ILLNESS: ROSEMARIE LEMOS is a 79 yo MALE who presents at the [facility] for his annual visit. He maintains a nonVA PCP: Dr Chencho Ching of [facility] (he also sees Cora Matos PA-C at [facility]). Last visit 06/2025 - next OV 12/2025. He is seeing Dr Arroyo/urology about the fluid in his right testicle on 10/11/24. He is requesting a dermatology referral for a routine skin exam. Active problems - Computerized Problem List is the source for the followin. Seborrheic Dermatitis 2. Exsmoker 3. Full thickness rotator cuff tear 4. Colonoscopy Screening 5. Type 2 diabetes mellitus controlled by diet 6. Primary Care Physician 7. Insomnia 8. Erectile dysfunction 9. Depression 10. Chronic post-traumatic stress disorder 11. Hyperlipidemia 12. Skin Disorder-Psoriasis/Rosacea 13. History of alcohol abuse 14. Anxiety disorder The following VA and Non-VA meds were reconciled with patient: Active Outpatient Medications (including Supplies): Issue Date Status Last Fill Active Outpatient Medications Refills Expiration 1) SERTRALINE HCL 100MG TAB Qty: 90 for 60 days ACTIVE Issue: 02/18/24 Sig: TAKE ONE AND ONE-HALF TABLETS BY MOUTH Refills: 2 Last : 08/18/24 ONCE DAILY FOR PTSD AND DEPRESSION Expr : 02/18/25 Indication: FOR POSTTRAUMATIC STRESS SYNDROME 2) TRAZODONE HCL 50MG TAB Qty: 45 for 30 days ACTIVE Issue: 02/18/24 Sig: TAKE ONE AND ONE-HALF TABLETS BY MOUTH Refills: 9 Last : 08/18/24 AT BEDTIME NEEDED FOR INSOMNIA Expr : 02/18/25 ALLERGIES: ========= [facility] LAB HISTORY: CHEM 7 TREND LAB CUMULATIVE SELECTED Collection DT Spec GLUCOSE BUN CREATIN Sodium K+/Pot CL CO2 09/20/2024 07:55 SERUM 128 H 20 1.40 H 138 3.9 104 27 09/24/2023 08:53 SERUM 111 H 28 H 1.40 139 4.2 105 26 09/23/2022 11:14 SERUM 114 H 16 1.23 141 4.3 104 27 03/26/2022 07:59 SERUM 129 H 21 1.20 139 4.2 103 29 11/19/2021 07:39 SERUM 130 H CBC TREND Collection DT Spec WBC RBC HGB HCT MCV MCH PLT 09/20/2024 07:55 BLOOD 5.67 4.92 14.0 43.0 87.4 28.5 239 09/24/2023 08:53 BLOOD 5.78 5.02 14.2 44.0 87.6 28.3 234 09/23/2022 11:14 BLOOD 8.62 4.98 13.8 43.3 86.9 27.7 238 10/17/2021 07:32 BLOOD 6.68 5.04 14.1 44.3 87.9 28.0 262 10/29/2020 07:23 BLOOD 6.98 4.86 13.7 43.5 89.5 28.2 270 HEMOGLOBIN A1C TREND Collection DT Spec HGBA1c 09/20/2024 07:55 BLOOD 6.2 H 09/24/2023 08:53 BLOOD 5.6 09/23/2022 11:14 BLOOD 5.6 03/26/2022 07:59 BLOOD 5.7 H 11/19/2021 07:39 BLOOD 5.7 H LIPID PANEL TREND Collection DT Spec CHOL HDL CHO/HDL LDL-c TRIG 09/20/2024 07:55 SERUM 263 H 53 5.0 185 H 123 09/24/2023 08:53 SERUM 241 H 48 5.0 175 H 92 09/23/2022 11:14 SERUM 256 H 61 H 4.2 175 H 100 03/26/2022 07:59 SERUM 230 H 57 4.0 155 H 91 10/17/2021 07:32 SERUM 242 H 45 5.4 177 H 100 LIVER PANEL TREND Collection DT Spec AST ALT T BILI ALK BOBBY T. 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 COMBAT SERVICE INDICATED: No VITAL SIGNS: Blood Pressure 158/85 (09/28/2024 14:27) Pulse 89 (09/28/2024 14:27) Respiration 16 (09/28/2024 14:27) Pulse Oximetry 97% (09/28/2024 14:27) Temperature 98 F [36.7 C] (09/28/2024 14:27) Pain 0 (09/28/2024 14:27) Height 72 in [182.9 cm] (09/28/2024 14:27) Weight 162.6 lb [73.75 kg] (09/28/2024 14:27) BMI BMI: 22.1 REVIEW OF SYSTEMS: ENT: No sore throat, no cough CARDIOVASCULAR: No chest pain, no palps RESPIRATORY: No SOB, no wheezing GASTROINTESTINAL: No abd pain, no N/V/D MUSCULOSKELETAL: No joint pain NEUROLOGIC: No H/A, no weakness EXAMINATION: GENERAL: WD/WN in NAD HEENT: Moist mucosa NECK: Supple HEART: RRR, S1-S2, no murmurs LUNGS: CTA B/L ABDOMEN: Soft, NT/ND EXTREMITIES: FROM x 4, no edema NEUROLOGIC: AAO x3, no focal findings PSYCHIATRIC: Good eye contact, affect normal ASSESSMENT/PLAN: Adult Annual General Wellness Exam -advised eye exams yearly and dental exams Q6 mths prn -advised heart healthy well balanced diet and lifestyle habits -advised regular CV exercise for 30 mins on most days of the week 1. Hyperlipidemia: moderately elevated, advised statin therapy but he continues to decline, discussed CV risk factors at length but states my friends have from that medication and so I'm not taking it Collection DT Spec CHOL HDL CHO/HDL LDL-c TRIG 09/20/2024 07:55 SERUM 263 H 53 5.0 185 H 123 2. DM II: dxed 2021, diet controlled, advised to reduce simple sugars/carbs in diet, seen by nutrition 12/16/21 FBS 128 - A1c 6.2% Microalbuminuria: 09/20/24 - negative Podiatry Exam: 07/25/24 - Dr Bright Eye Exam: 06/02/23 3. Colonoscopy Screenin, due 2020, seen by Dr Shabazz 05/21/22 and told him he does not want any form of prep nor does he want another colonoscopy, he was advised of the risks of this decision, when questioned he stated he felt very uncomfortable during the OV with this provider, offered a different provider but he declined, gave him FIT card 4. Insomnia: on melatonin 3mg/QHS and trazodone 75mg/QHS, managed by 5. PTSD/Depression/Anxiety: on sertraline 150mg/day, managed by 6. Erectile Dysfunction: 2* to radical prostatectomy, on alprostadil supp prn as directed, managed by Dr Becerra 7. Hx Prostate CA (dxed 2011): s/p radical prostatectomy 08/2012, managed by Dr Arroyo FOLLOW UP: 1 year - [facility] - FBW prior ========= UPCOMING APPOINTMENTS: 10/06/2024 15:00 [facility] POD[facility]RY 1 11/14/2024 15:00 [facility] POD[facility] 1 11/29/2024 11:30 SPR [facility] PS[facility] 3 01/09/2025 15:00 SPR PODIATRY 1 No barriers; Patient understands and agrees to current treatment plan. If pt has any questions, concerns, or changes in current health status he/she will call or come in to the [facility]. HIV Screening: Patient has been offered HIV testing and has declined. I have explained that HIV testing is recommended for all adults, even if all risk factors are absent. The patient was educated on the risk of delayed screening. Medication Reconciliation: Outpatient: Has the patient been [...] Remote Allergy/ADR Data available for this patient [place] [facility] Med Recon NoGlossary (Tool #1) INCLUDED [...] the patient into personal health records (i.e. [employer]) are NOT included in this list. Non-VA medications documented outside this [place], remote inpatient orders (regardless of status) and remote clinic medications are NOT included in this list. The patient and provider must always discuss medications the patient is taking, regardless of where the medication was dispensed or obtained. ------ OUTPT CARBAMIDE PEROXIDE 6.5% OTIC SOLN (Status = ) INSTILL 5 DROPS INTO THE AFFECTED EAR(S) TWICE DAILY FOR EAR WAX BLOCKAGE Rx# [id number] Last Released: 06/06/24 Qty/Days Supply: Rx Expiration Date: 07/02/24 Refills Remainin Indication: FOR EAR WAX BLOCKAGE OUTPT SERTRALINE HCL 100MG TAB (Status = Active) TAKE ONE AND ONE-HALF TABLETS BY MOUTH ONCE DAILY FOR PTSD AND DEPRESSION Rx# [id number] Last Released: 08/18/24 Qty/Days Supply: 90/60 Rx Expiration Date: 02/18/25 Refills Remainin Indication: FOR POSTTRAUMATIC STRESS SYNDROME OUTPT TRAZODONE HCL 50MG TAB (Status = Active) TAKE ONE AND ONE-HALF TABLETS BY MOUTH AT BEDTIME NEEDED FOR INSOMNIA Rx# [id number] Last Released: 08/18/24 Qty/Days Supply: Rx Expiration Date: 02/18/25 Refills Remainin ------ SUPPLIES ------ /mike/ SANDY NAVA MD Primary Care Physician Signed: 09/28/2024 15:13 SANDY NAVA [place]
--- OUTSIDE RECORDS SUMMARY | 2024-10-06 11:00 | XMS_ITS | Encounter Summary ---
Author Name [facility] [place] Address [address] [place] [address] Care Team Providers Care Emergency Department Aide Name Role Phone SANDY NAVA Primary Care [...] [employer] MEDIC[employer] SUPPLEMEN [facility] Feb 22, 2010 [id number] ANASTASIA LEMOS PATIENT [employer] SU[employer]MEN PRACHI [facility] Feb 22, 2010 [id number] ANASTASIA LEMOS PATIENT SAVE RX PRESCRIPT ION [facility] Mar 25, 2012 [id number] ANASTASIA LEMOS PATIENT Selected Encounter This section includes the information on record at [place] for the Encounter. Date/Time Encounter Type Encounter Description Reason Provider Source Oct 06, 2024 03:00 PM OFFICE O/P EST MOD 30 MIN PODIATRY ICD-10-CM L60.0 Ingrowing nail JUSTINE ALLRED IHJazmin Encounter Template Text not used by [facility] Assessments - Encounter Diagnoses This section includes the primary and secondary diagnoses documented for the Encounter. Date/Time Primary/Secondary Diagnosis Diagnosis Name Provider Source Oct 06, 2024 03:58 PM PRIMARY Ingrowing nail JUSTINE ALLRED Oct 06, 2024 03:58 PM SECONDARY Pain in left toe(s) JUSTINE ALLRED Plan of Treatment: Future Appointments (+ 6 months) and Future Tests (+/- 45 days) The Plan of Treatment section includes future care activities for the patient from [facility] [place] [facility]. This section includes future appointments and future orders which are active, pending or scheduled. Future Appointments This section includes appointments that were scheduled to occur 6 months from the date of the Encounter, up to a maximum of 20 appointments. The data comes from all [place] treatment facilities. Appointment Date/Time Appointment Type Appointme nt Facility Name Oct 09, 2024 08:00 AM AMBULATORY - MEDICINE [facility] Oct 13, 2024 12:00 PM AMBULATORY - MEDICINE [facility] Nov 14, 2024 03:00 PM AMBULATORY - MEDICINE [facility] Nov 29, 2024 11:30 AM AMBULATORY - PSYCHIATRY [facility] Jan 09, 2025 03:00 PM AMBULATORY - MEDICINE [facility] Active, Pending, and Scheduled Orders This section includes a listing of several types of active, pending, and scheduled orders, including clinic medications orders, diagnostic test orders, procedure orders and consult orders; where the start date of the order is 45 days before the date of the Encounter or 45 days after the date of theEncounter. The data comes from all [facility]. Test Date/Time Test Type Test Details Facility Name Sep 28, 2024 04:57 PM Consult Order DERMATOLOG [facility] (OUTPT) Cons Electronic Calibration Technician's Choice [facility] Lab Results: +/- 30 days of the encounter This section includes the Chemistry and Hematology Lab Results on record with [place] for the patient. Radiology Reports and Pathology Reports are provided separately, in subsequent sections. Lab Results This section contains the Chemistry/Hematology Results that were resulted 30 days before or 30 daysafter the date of the Encounter. Date/Time Source Result Type Result - Unit Interpretation Reference Range Specimen Type Comment Sep 20, 2024 07:55 AM [facility] HEMOGLOBIN A1C PANEL BLOOD Specimen Type: [...] Sep 29, 2023 02:30 PM Reporting Lab: [address] [address] Performing Lab: [address] [address] HEMOGLOBIN A1C 6.2 H 4.0-5.6 Sep 20, 2024 07:55 AM [facility] LIVER FUNCTION SERUM Specimen Type: SERUM No comment entered. Ordering Provider: SANDY NAVA Report Released Date/Time: Sep 29, 2023 02:30 PM Reporting Lab: [address] [address] Performing Lab: [address] [address] PROTEIN,TOTAL 7.1 g/dL 6.4-8.3 ALBUMIN 3.8 g/dL 3.2-4.6 ALKALINE PHOSPHATASE 111 U/L 40-150 AST 20 U/L 5-34 ALT 14 U/L 0-55 BILIRUBIN, TOTAL 0.4 mg/dL 0.2-1.2 Sep 20, 2024 07:55 AM [facility] MICROALBUMIN CREATININE RATIO PANEL URINE Spe cimen Type: URINE No comment entered. Ordering Provider: SANDY NAVA Report Released Date/Time: Sep 29, 2023 02:30 PM Reporting Lab: [address] [address] Performing Lab: [address] [address] MICROALBUMIN/CREATININE RATIO 16.3 mg/g 0-29.9 MICROALBUMIN,QUANTITATIVE 3.3 mg/dL RR U NAVAIL CREATININE URINE 202.56 mg/dL H 63-166 Sep 20, 2024 07:55 AM [facility] LIPID PANEL FASTING SERUM Specimen Type: SERU M No comment entered. Ordering Provider: SANDY NAVA Report Released Date/Time: Sep 29, 2023 02:30 PM Reporting Lab: [facility] [address] [address] Performing Lab: [address] [address] CHOLESTEROL 263 mg/dL H TRIGLYCERIDE 123 mg/dL 0-150 LDL calculated 185 mg/dL H 0-129 CHOL/HDL 5.0 HDL CHOLESTEROL 53 mg/dL >40 Sep 20, 2024 07:55 AM [facility] BASIC METABOLIC PANEL (fasting) SERUM Specime n Type: SERUM No comment entered. Ordering Provider: SANDY NAVA Report Released Date/Time: Sep 29, 2023 02:30 PM Reporting Lab: [address] [address] Performing Lab: [address] [address] UREA NITROGEN 20 mg/dL 8-26 GLUCOSE 128 mg/dL H 65-100 SODIUM 138 mmol/L 136-145 POTASSIUM 3.9 mmol/L 3.5-5.1 CHLORIDE 104 mmol/L 98-107 CO2 27 meq/L 23-31 CALCIUM 8.9 mg/dL 8.8-10 CREATININE, Serum 1.40 mg/dL H 0.72-1.25 eGFR(CKD-EPI 2020) 52 mL/min L >60 Sep 20, 2024 07:55 AM [facility] CBC BLOOD Specimen Type: BLOOD No comment entered. Ordering Provider: SANDY NAVA Report Released Date/Time: Sep 29, 2023 02:30 PM Reporting Lab: [address] [address] Performing Lab: [address] [address] WBC 5.67 10*3/uL 4.50-11.00 RBC 4.92 10*6/uL [...] and tobacco- related health factors from the [place] facility where the Encounter took place. Current Smoking Status This section includes the most current smoking, or tobacco-related health factor, from the [place] facility where the Encounter took place. Date/Time Current Smoking Status Comment Facil ity Jun 13, 2024 02:00 PM VA-TOBACCO USE FORMER CIGARETTES [facility] Tobacco Use History This section includes a history of the smoking, or tobacco-related health factors, that were collected on or before the date of the Encounter. The data comes from the [place] facility where the Encounter took place. Date/Time Smoking Status/Tobacco Use Comment F acility Jun 13, 2024 02:00 PM VA-TOBACCO USE FOR LEEANNE CIGARETTES [facility] May 26, 2023 02:00 PM VA-TOBACCO FORMER USER [facility] May 26, 2023 02:00 PM VA-TOBACCO QUIT 15 YRS OR MORE [facility] Apr 01, 2022 03:30 PM VA-TOBACCO FORMER USER [facility] Apr 01, 2022 03:30 PM VA-TOBACCO QUIT 15 YRS OR MORE [facility] Apr 04, 2021 02:00 PM VA-TOBACCO FORMER USER [facility] Apr 04, 2021 02:00 PM VA-TOBACCO QUIT 15 YRS OR MORE [facility] Apr 04, 2020 02:30 PM VA-TOBACCO FORMER USER [facility] Apr 04, 2020 02:30 PM VA-TOBACCO QUIT 15 YRS OR MORE [facility] Mar 06, 2019 02:44 PM VA-TOBACCO FORMER USER [facility] Mar 06, 2019 02:44 PM VA-TOBACCO QUIT 15 YRS OR MORE [facility] Sep 24, 2017 10:35 AM VA-TOBACCO FORMER USER [facility] Sep 24, 2017 10:35 AM VA-TOBACCO QUIT 15 YRS OR MORE [facility] Aug 30, 2017 03:05 PM QUIT TOBACCO USE > 7 YEARS AGO [facility] June 29, 2016 08:41 AM QUIT TOBACCO USE > 7 YEARS AGO [facility] July 10, 2015 01:03 PM QUIT TOBACCO USE > 7 YEARS AGO quit 23 years ago [facility] Apr 18, 2015 01:45 PM QUIT TOBACCO USE 1-7 YEARS AGO [facility] Encounter Notes: All associated encounter notes This section contains the clinical notes associated to the Encounter. Date/Time Encounter Note(s) Provider Source Oct 06, 2024 02:35 PM PODIATRY NOTE: LOCAL TITLE: PODIATRY NOTE STANDARD TITLE: PODIATRY NOTE DATE OF NOTE: OCT 06, 2024@14:35 ENTRY DATE: OCT 06, 2024@14:35:25 AUTHOR: JUSTINE ALLRED COSIGNER: URGENCY: STATUS: COMPLETED WHEN I INQUIRE ABOUT COVID VACCINE HE DID NOT WISH TO REPLY IN THE AFFIRMATIVE TO HIS DESIRE TO ABSTAIN AND/OR RECEIVE IN THE FUTURE. LAST SEEN FOR TREATMENT: 09/05/2024 S: Pt. is a 79 yo alert WDWN CAUC MALE who IS [...] DR. NAVA Location of symptoms are: LEFT HALLUX: presents for surgical excision for permanent resolution of painful incurvated medial and lateral left hallux nail borders and associated matrixectomy with phenol cauterization. Onset of symptoms has been several months [...] NONE Allergies:PENICILLIN Previous Surgery/Hospitalization: N/A *NOTE: A1C= 6.2 (LAST TAKEN: 08/2024) FBS= DNP RISK =2 HEIGHT:163.2 lb [74.2 [...] present physical-medical status. Protective sensation utilizing a [place]-Pablo lOg monofilament is 10/10 bilateral. 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 with the left > rt having had previous procedure many years ago P: Treatment consists of EXCISION OF THE MEDIAL AND LATERAL LEFT HALLUX NAIL BORDERS UNDER LOACL ANESTHESIA FOR A PERMANENT RESOLUTION OF THIS RECURRENT CONDITION WITH CHEMICAL CHAUTERIZATION OF THE NAIL BEDS WITH 3 APPLICATIONS OF PHENOL SWBS IN EACH BORDER FOR 1 MINUTE PER APPLICATION. All care rendered without complications & the patient is progressing well after podiatric care this date and will be scheduled for REASSESSMENT ON 10/09 @ 7:45 & 10/13 AT NOON *DISCUSSED NEW PROTOCOLS AND CALLED LEV TODAY FOR RESCHEDULING I DISCUSSED THE FINDINGS & PLAN WITH PATIENT (UNCHANGED SINCE PREVIOUS VISIT) & PATIENT AGREES AND UNDERSTANDS PLAN-RECEIVED MIRROR PATIENT HAS REQUESTED NAIL SURGERY LEFT FOOT FOR THE FUTURE & WILL NEED TO BE CASTED TODAY WELL. MEDICATION RECONCILIATION REMINDER DONE Yes (to include medications being used during invasive procedure) VITAL SIGNS DOCUMENTED PRE PROCEDURE, PAIN ASSESSMENT Yes: Temperature:98 F Blood Pressure:154/79 Pulse:87 Respiration:16 Pain:0 PAIN ASSESSMENT: Location: MEDIAL & LATERAL LEFTY HALLUX NAIL BORDERS Pain is acute Pain is chronic Check all that apply, the pain is: Comes and Goes, Dull Ache Alleviating factors include: Position, Rest iMED CONSENT DOCUMENTED Yes TIME OUT NOTED Yes: TIME:Sep@14:30 PROVIDER NAME: JUSTINE ALLRED DPM PATIENT NAME: ROSEMARIE LEMOS RICK STAFF NAME:KEVYN BERNSTEIN IDENTIFICATION CONFIRMED BY ASSISTING STAFF MEMBER (X) Inman stating full name (X) stating full SS# Inman stating PROCEDURE: medial & lateral LEFT hallux nail avulsion & chemical matrixectomy LOCATION: (identify if area is marked if appropriate) medial & lateral hallux nail borders Left PROCEDURE NOTE Yes: NAIL AND MATRIX REMOVAL PROCEDURE 79 y/o MALE, nsc, with a chronic painful incurvated 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 He has had multiple symptomatic incurvated nails in the past, including paronychia. Patient is seen today for a partial matrixectomy of the LEFT hallux MEDIAL & LATERAL NAIL BORDERS. Known Allergies: PENICILLIN Vascular : DP: Palpabe, PT: palpable cft 2 seconds A COMPLETE LEFT HALLUX NAIL BLOCK WAS ACHIEVED WITH 3CC OF AN EQUAL PARTS MIXTURE OF LIDOCAINE 2% PLAIN(LOT #[id number]: EXP DATE:11/2027) AND BUPIVACAINE .5% PLAIN( LOT # [id number]: EXP DATE:12/23/2024 Tourniquet applied to the hallux and location marked. The medial & lateral nail borders of the LEFT hallux nail were then freed form the soft tissue attachments and removed from the nail bed w/out a problem. The nail borders were checked for any remaining nail spicule & none being found I proceded to apply 3 applications of phenol (Phenol EZ Swap) were then applied to each side of the nail bed. Bacitracin and Nugauze packing were applied and Tourniquet removed observing CFT returned to normal and the toe was then dressed w/a bulky sterile gauze dressing. Pt. provided with post-op instructins as well as instructions for the evaporating dressing solution to be initiated on Wednesday. (see copies below) 1)Keep foot elevated as much as possible and minimize any excessive walking. 2)Apply ice (crushed ice is preferred) in a plastic bag for 10 minutes every hours while awake. 3)Keep area dry until awakening in am -wednesday 4)For pain take 4 IBUPROFEN 200mg tablets after meals at the first sensation of pain or if not experiencing pain, take the IBUPROFEN 1 hour beforebedtime. 5)Start the use of the evaporating dressing the day after surgery and follow instructions on the Evaporating Dressing sheet. 6)In case of emergency I may be reached at 1)Prepare a mixture of 1 tablespoonful of white vinegar plus 3 tablespoonful of water and mix together. 2)Moisten the dressing 3 to 4 times a day. The dressing need not be dripping wet. 3)DO NOT REMOVE OR CHANGE THE DRESSING DAILY. 4)Remove the dressing after 3 days of treatment and follow any additional instruction form the doctor. Call the office if you have any questions [phone] Watch for any sign of infection. Call with any questions or problems. THE PATIENT TOLERATED THE PROCEDURE WELL LEAVING THE OFFICE AND CLINIC AMBULATORY IN THE CARE OF HIS AND HE HAS PLANS TO ATTEND A FAMILY REUNION ON WEDNESDAY AND WILL FOLLOW THE INSTRUCTIONS AND RTC ON WEDNESDAY AT 7:45AM. Return to clinic: 0 week(s) for follow-up. POST PROCEDURE PAIN NO Pain: 0 Other: DISCHARGE INSTRUCTIONS OUTPATIENT NOTE PRINTED Yes Forms Approved 09/27/17 JUSTINE ALLRED DPM 10/06/2024 /mike/ JUSTINE ALLRED DPM CONSUMER BANKER Signed: 10/06/2024 15:59 JUSTINE ALLRED
--- OUTSIDE RECORDS SUMMARY | 2024-10-09 04:00 | XMS_ITS | Encounter Summary ---
Author Name [facility] [place] Address [address] [place] [address] Care Team Providers Care Mill Laborer Name Role Phone SANDY NAVA Primary Care [...] Chua [employer] [facility] [facility] Feb 22, 2010 NEEW [id number] ANASTASIA LEMOS PATIENT [employer] SU[employer] PRACHI [facility] Feb 22, 2010 [id number] ANASTASIA LEMOS PATIENT SAVE RX PRESCRIPT ION [facility] Mar 25, 2012 [id number] ANASTASIA LEMOS PATIENT Selected Encounter This section includes the information on record at [place] for the Encounter. Date/Time Encounter Type Encounter Description Reason Provider Source Oct 09, 2024 08:00 AM POSTOP FOLLOW-UP VISIT PODIATRY ICD-10-CM L60.0 Ingrowing JUSTINE Cooper Encounter Template Text not used by [facility] Assessments - Encounter Diagnoses This section includes the primary and secondary diagnoses documented for the Encounter. Date/Time Primary/Secondary Diagnosis Diagnosis Name Provider Source Oct 09, 2024 07:59 AM PRIMARY Ingrowing nail JUSTINE ALLRED Plan of Treatment: Future Appointments (+ 6 months) and Future Tests (+/- 45 days) The Plan of Treatment section includes future care activities for the patient from [facility] [place] [facility] This section includes future appointments and future orders which are active, pending or scheduled. Future Appointments This section includes appointments that were scheduled to occur 6 months from the date of the Encounter, up to a maximum of 20 appointments. The data comes from all [place] treatment facilities. Appointment Date/Time Appointment Type Appointme nt Facility Name Oct 13, 2024 12:00 PM AMBULATORY - MEDICINE [facility] Nov 14, 2024 03:00 PM AMBULATORY - MEDICINE [facility] Nov 29, 2024 11:30 AM AMBULATORY - PSYCHIATRY [facility] Jan 09, 2025 03:00 PM AMBULATORY - MEDICINE [facility] Active, Pending, and Scheduled Orders This section includes a listing of several types of active, pending, and scheduled orders, including clinic medications orders, diagnostic test orders, procedure orders and consult orders; where the start date of the order is 45 days before the date of the Encounter or 45 days after the date of theEncounter. The data comes from all [facility]. Test Date/Time Test Type Test Details Facility Name Sep 28, 2024 04:57 PM Consult Order DERMATOLOG Y/[facility] (OUTPT) Cons Manager Critical Care Unit's Choice [facility] Lab Results: +/- 30 days of the encounter This section includes the Chemistry and Hematology Lab Results on record with [place] for the patient. Radiology Reports and Pathology Reports are provided separately, in subsequent sections. Lab Results This section contains the Chemistry/Hematology Results that were resulted 30 days before or 30 daysafter the date of the Encounter. Date/Time Source Result Type Result - Unit Interpretation Reference Range Specimen Type Comment Sep 20, 2024 07:55 AM [facility] HEMOGLOBIN A1C PANEL BLOOD Specimen Type: [...] Sep 29, 2023 02:30 PM Reporting Lab: [facility] [address] [facility] [address] Performing Lab: [address] [address] HEMOGLOBIN A1C 6.2 H 4.0-5.6 Sep 20, 2024 07:55 AM [facility] LIVER FUNCTION SERUM Specimen Type: SERUM No comment entered. Ordering Provider: SANDY NAVA Report Released Date/Time: Sep 29, 2023 02:30 PM Reporting Lab: [facility] [address] [facility] [address] Performing Lab: [address] [address] PROTEIN,TOTAL 7.1 g/dL 6.4-8.3 ALBUMIN 3.8 g/dL 3.2-4.6 ALKALINE PHOSPHATASE 111 U/L 40-150 AST 20 U/L 5-34 ALT 14 U/L 0-55 BILIRUBIN, TOTAL 0.4 mg/dL 0.2-1.2 Sep 20, 2024 07:55 AM [facility] MICROALBUMIN CREATININE RATIO PANEL URINE Spe cimen Type: URINE No comment entered. Ordering Provider: SANDY NAVA Report Released Date/Time: Sep 29, 2023 02:30 PM Reporting Lab: [address] [address] Performing Lab: [address] [address] MICROALBUMIN/CREATININE RATIO 16.3 mg/g 0-29.9 MICROALBUMIN,QUANTITATIVE 3.3 mg/dL RR U NAVAIL CREATININE URINE 202.56 mg/dL H 63-166 Sep 20, 2024 07:55 AM [facility] LIPID PANEL FASTING SERUM Specimen Type: SERU M No comment entered. Ordering Provider: SANDY NAVA Report Released Date/Time: Sep 29, 2023 02:30 PM Reporting Lab: [facility] [address] [facility] [address] Performing Lab: [facility] [address] [address] CHOLESTEROL 263 mg/dL H TRIGLYCERIDE 123 mg/dL 0-150 LDL calculated 185 mg/dL H 0-129 CHOL/HDL 5.0 HDL CHOLESTEROL 53 mg/dL >40 Sep 20, 2024 07:55 AM [facility] BASIC METABOLIC PANEL (fasting) SERUM Specime n Type: SERUM No comment entered. Ordering Provider: SANDY NAVA Report Released Date/Time: Sep 29, 2023 02:30 PM Reporting Lab: [facility] [address] [address] Performing Lab: [address] [address] UREA NITROGEN 20 mg/dL 8-26 GLUCOSE 128 mg/dL H 65-100 SODIUM 138 mmol/L 136-145 POTASSIUM 3.9 mmol/L 3.5-5.1 CHLORIDE 104 mmol/L 98-107 CO2 27 meq/L 23-31 CALCIUM 8.9 mg/dL 8.8-10 CREATININE, Serum 1.40 mg/dL H 0.72-1.25 eGFR(CKD-EPI 2020) 52 mL/min L >60 Sep 20, 2024 07:55 AM [facility] CBC BLOOD Specimen Type: BLOOD No comment entered. Ordering Provider: SANDY NAVA Report Released Date/Time: Sep 29, 2023 02:30 PM Reporting Lab: [facility] [address] [facility] [address] Performing Lab: [address] [address] WBC 5.67 10*3/uL 4.50-11.00 RBC 4.92 10*6/uL [...] and tobacco- related health factors from the [place] facility where the Encounter took place. Current Smoking Status This section includes the most current smoking, or tobacco-related health factor, from the [place] facility where the Encounter took place. Date/Time Current Smoking Status Comment Facil ity Jun 13, 2024 02:00 PM VA-TOBACCO USE FORMER CIGARETTES [place] Tobacco Use History This section includes a history of the smoking, or tobacco-related health factors, that were collected on or before the date of the Encounter. The data comes from the [place] facility where the Encounter took place. Date/Time Smoking Status/Tobacco Use Comment F acility Jun 13, 2024 02:00 PM VA-TOBACCO USE FOR LEEANNE CIGARETTES [place] May 26, 2023 02:00 PM VA-TOBACCO FORMER USER [place] May 26, 2023 02:00 PM VA-TOBACCO QUIT 15 YRS OR MORE [place] Apr 01, 2022 03:30 PM VA-TOBACCO FORMER USER [place] Apr 01, 2022 03:30 PM VA-TOBACCO QUIT 15 YRS OR MORE [place] Apr 04, 2021 02:00 PM VA-TOBACCO FORMER USER [place] Apr 04, 2021 02:00 PM VA-TOBACCO QUIT 15 YRS OR MORE [place] Apr 04, 2020 02:30 PM VA-TOBACCO FORMER USER [place] Apr 04, 2020 02:30 PM VA-TOBACCO QUIT 15 YRS OR MORE [place] Mar 06, 2019 02:44 PM VA-TOBACCO FORMER USER [place] Mar 06, 2019 02:44 PM VA-TOBACCO QUIT 15 YRS OR MORE [place] Sep 24, 2017 10:35 AM VA-TOBACCO FORMER USER [place] Sep 24, 2017 10:35 AM VA-TOBACCO QUIT 15 YRS OR MORE [place] Aug 30, 2017 03:05 PM QUIT TOBACCO USE > 7 YEARS AGO [place] June 29, 2016 08:41 AM QUIT TOBACCO USE > 7 YEARS AGO [place] July 10, 2015 01:03 PM QUIT TOBACCO USE > 7 YEARS AGO quit 23 years ago [place] Apr 18, 2015 01:45 PM QUIT TOBACCO USE 1-7 YEARS AGO [place] Encounter Notes: All associated encounter notes This section contains the clinical notes associated to the Encounter. Date/Time Encounter Note(s) Provider Source Oct 09, 2024 07:52 AM PODIATRY NOTE: LOCAL TITLE: PODIATRY NOTE STANDARD TITLE: PODIATRY NOTE DATE OF NOTE: OCT 09, 2024@07:52 ENTRY DATE: OCT 09, 2024@07:52:28 AUTHOR: JUSTINE ALLRED COSIGNER: URGENCY: STATUS: COMPLETED [...] of a presenting complaint of painful ingrown toenails anad has had surgical intervention left hallux medial and lateral nail borders for permanent resolution. Patient has been referred by: DR. NAVA Location of symptoms are: LEFT HALLUX: presents for surgical excision for permanent resolution of painful incurvated medial and lateral left hallux nail borders and associated matrixectomy with phenol cauterization. PMH: Active problems - Computerized Problem List [...] PCP NOTES & PMH WELL. O: DERMATOLOGICAL: UPON REMOVAL OF THE DRESSING WHICH IS DRY & INTACT i NOTED MILD RUBOR MEDIALLY WITH A MILD SEROUS EXYDATE BUT NO EVFIDENCE OF INFECTION. HE DOES REALTE SOME MILD PAIN MEDIAL NAIL BOIDER AND THAT MAY BE DUE TO THEPACKING WHICH WAS ALSO REMOVED AT THIS TIME. HE HAD MINIMAL DISCOMFORT OVER THE WEEKEND AND SPOKE TO HIS ON WEDNESDAY BUT COULD NOT REACH THEM ON WEDNESDAY THEY WERE AT A FAMILY REUNION. VASCULAR: MUSCULOSKELETAL: NEUROLOGICAL: ALL ABOVE EXAMS DEFERRED HAVING BEEN COMPLETED 3 DAYS PRIOR AND NO CHANGES NOTED. A: Clinical Impression is SATISAFCTORY HEALING OF THE SURGICAL SITES. P: Treatment consists of THE APPLICATION OF BACITRACIN AND ADD AND HE SHALL CONTINUE WITH THE EVAPORATING DRESSING UNTIL WEDNESDAY-NEXT VISIT. All care rendered without complications & the patient is progressing well *DISCUSSED NEW PROTOCOLS AND CALLED LEV TODAY FOR RESCHEDULING I DISCUSSED THE FINDINGS & PLAN WITH PATIENT (UNCHANGED SINCE PREVIOUS VISIT) & PATIENT AGREES AND UNDERSTANDS PLAN-RECEIVED MIRROR /mike/ JUSTINE ALLRED DPM ASSISTANT BRAND MANAGER Signed: 10/09/2024 07:59 JUSTINE ALLRED
--- OUTSIDE RECORDS SUMMARY | 2024-10-13 08:00 | XMS_ITS | Encounter Summary ---
Author Name [facility] Organization [facility] Address [address] [place] [address] Care Team Providers Care Custom Protection Officer Name Role Phone SANDY NAVA Primary Care [...] [employer] [facility] Feb 22, 2010 [id number] ANASTASIA LEMOS PATIENT [employer] [facility] Feb 22, 2010 [id number] ANASTASIA LEMOS PATIENT [facility] [employer] [facility] Mar 25, 2012 [id number] ANASTASIA LEMOS PATIENT Selected Encounter This section includes the information on record at [place] for the Encounter. Date/Time Encounter Type Encounter Description Reason Provider Source Oct 13, 2024 12:00 PM POSTOP FOLLOW-UP VISIT PODIATRY ICD-10-CM L60.0 Ingrowing JUSTINE Cooper Encounter Template Text not used by [facility] Assessments - Encounter Diagnoses This section includes the primary and secondary diagnoses documented for the Encounter. Date/Time Primary/Secondary Diagnosis Diagnosis Name Provider Source Oct 13, 2024 11:32 AM PRIMARY Ingrowing nail JUSTINE ALLRED Plan of Treatment: Future Appointments (+ 6 months) and Future Tests (+/- 45 days) The Plan of Treatment section includes [facility] the [facility] [place] [facility] This section includes future appointments and future orders which are active, pending or scheduled. Future Appointments This section includes appointments that were scheduled to occur 6 months from the date of the Encounter, up to a maximum of 20 appointments. The data comes from all [place] treatment facilities. Appointment Date/Time Appointment Type Appointme nt Facility Name Nov 14, 2024 03:00 PM AMBULATORY - MEDICINE [facility] Nov 29, 2024 11:30 AM AMBULATORY - PSYCHIATRY [facility] Jan 09, 2025 03:00 PM AMBULATORY - MEDICINE [facility] Active, Pending, and Scheduled Orders This section includes a listing of several types of active, pending, and scheduled orders, including clinic medications orders, diagnostic test orders, procedure orders and consult orders; where the start date of the order is 45 days before the date of the Encounter or 45 days after the date of theEncounter. The data comes from all [facility]. Test Date/Time Test Type Test Details Facility Name Sep 28, 2024 04:57 PM Consult Order DERMATOLOG Y/NHM (OUTPT) Cons Art Class Model's Choice [facility] Lab Results: +/- 30 days of the encounter This section includes the Chemistry and Hematology Lab Results on record with [place] for the patient. Radiology Reports and Pathology Reports are provided separately, in subsequent sections. Lab Results This section contains the Chemistry/Hematology Results that were resulted 30 days before or 30 daysafter the date of the Encounter. Date/Time Source Result Type Result - Unit Interpretation Reference Range Specimen Type Comment Sep 20, 2024 07:55 AM [facility] HEMOGLOBIN A1C PANEL BLOOD Specimen Type: [...] Sep 29, 2023 02:30 PM Reporting Lab: [facility] [address] [address] Performing Lab: [facility] [address] [address] HEMOGLOBIN A1C 6.2 H 4.0-5.6 Sep 20, 2024 07:55 AM [facility] LIVER FUNCTION SERUM Specimen Type: SERUM No comment entered. Ordering Provider: SANDY NAVA Report Released Date/Time: Sep 29, 2023 02:30 PM Reporting Lab: [facility] [address] Performing Lab: [facility] [address] [address] PROTEIN,TOTAL 7.1 g/dL 6.4-8.3 ALBUMIN 3.8 g/dL 3.2-4.6 ALKALINE PHOSPHATASE 111 U/L 40-150 AST 20 U/L 5-34 ALT 14 U/L 0-55 BILIRUBIN, TOTAL 0.4 mg/dL 0.2-1.2 Sep 20, 2024 07:55 AM [facility] MICROALBUMIN CREATININE RATIO PANEL URINE Spe cimen Type: URINE No comment entered. Ordering Provider: SANDY NAVA Report Released Date/Time: Sep 29, 2023 02:30 PM Reporting Lab: [facility] [address] Performing Lab: [facility] [address] [address] MICROALBUMIN/CREATININE RATIO 16.3 mg/g 0-29.9 MICROALBUMIN,QUANTITATIVE 3.3 mg/dL RR U NAVAIL CREATININE URINE 202.56 mg/dL H 63-166 Sep 20, 2024 07:55 AM [facility] LIPID PANEL FASTING SERUM Specimen Type: SERU M No comment entered. Ordering Provider: SANDY NAVA Report Released Date/Time: Sep 29, 2023 02:30 PM Reporting Lab: [facility] [address] [address] Performing Lab: [facility] [address] [address] CHOLESTEROL 263 mg/dL H TRIGLYCERIDE 123 mg/dL 0-150 LDL calculated 185 mg/dL H 0-129 CHOL/HDL 5.0 HDL CHOLESTEROL 53 mg/dL >40 Sep 20, 2024 07:55 AM [facility] BASIC METABOLIC PANEL (fasting) SERUM Specime n Type: SERUM No comment entered. Ordering Provider: SANDY NAVA Report Released Date/Time: Sep 29, 2023 02:30 PM Reporting Lab: [facility] [address] [address] Performing Lab: [address] [address] UREA NITROGEN 20 mg/dL 8-26 GLUCOSE 128 mg/dL H 65-100 SODIUM 138 mmol/L 136-145 POTASSIUM 3.9 mmol/L 3.5-5.1 CHLORIDE 104 mmol/L 98-107 CO2 27 meq/L 23-31 CALCIUM 8.9 mg/dL 8.8-10 CREATININE, Serum 1.40 mg/dL H 0.72-1.25 eGFR(CKD-EPI 2020) 52 mL/min L >60 Sep 20, 2024 07:55 AM [facility] CBC BLOOD Specimen Type: BLOOD No comment entered. Ordering Provider: SANDY NAVA Report Released Date/Time: Sep 29, 2023 02:30 PM Reporting Lab: [facility] [address] [address] Performing Lab: [facility] [address] [address] WBC 5.67 10*3/uL 4.50-11.00 RBC 4.92 10*6/uL [...] 2024 02:00 PM VA-TOBACCO USE FORMER CIGARETTES [place] Tobacco Use History This section includes a history of the smoking, or tobacco-related health factors, that were collected on or before the date of the Encounter. The data comes from the [place] facility where the Encounter took place. Date/Time Smoking Status/Tobacco Use Comment F acility Jun 13, 2024 02:00 PM VA-TOBACCO USE FOR LEEANNE CIGARETTES [place] May 26, 2023 02:00 PM VA-TOBACCO FORMER USER [place] May 26, 2023 02:00 PM VA-TOBACCO QUIT 15 YRS OR MORE [place] Apr 01, 2022 03:30 PM VA-TOBACCO FORMER USER [place] Apr 01, 2022 03:30 PM VA-TOBACCO QUIT 15 YRS OR MORE [place] Apr 04, 2021 02:00 PM VA-TOBACCO FORMER USER [place] Apr 04, 2021 02:00 PM VA-TOBACCO QUIT 15 YRS OR MORE [place] Apr 04, 2020 02:30 PM VA-TOBACCO FORMER USER [place] Apr 04, 2020 02:30 PM VA-TOBACCO QUIT 15 YRS OR MORE [place] Mar 06, 2019 02:44 PM VA-TOBACCO FORMER USER [place] Mar 06, 2019 02:44 PM VA-TOBACCO QUIT 15 YRS OR MORE [place] Sep 24, 2017 10:35 AM VA-TOBACCO FORMER USER [place] Sep 24, 2017 10:35 AM VA-TOBACCO QUIT 15 YRS OR MORE [place] Aug 30, 2017 03:05 PM QUIT TOBACCO USE > 7 YEARS AGO [place] June 29, 2016 08:41 AM QUIT TOBACCO USE > 7 YEARS AGO [place] July 10, 2015 01:03 PM QUIT TOBACCO USE > 7 YEARS AGO quit 23 years ago [place] Apr 18, 2015 01:45 PM QUIT TOBACCO USE 1-7 YEARS AGO [place] Encounter Notes: All associated encounter notes This section contains the clinical notes associated to the Encounter. Date/Time Encounter Note(s) Provider Source Oct 13, 2024 11:18 AM PODIATRY NOTE: LOCAL TITLE: PODIATRY NOTE STANDARD TITLE: PODIATRY NOTE DATE OF NOTE: OCT 13, 2024@11:18 ENTRY DATE: OCT 13, 2024@11:18:14 AUTHOR: JUSTINE ALLRED EXP COSIGNER: URGENCY: STATUS: COMPLETED WHEN I INQUIRE ABOUT COVID VACCINE HE DID NOT WISH TO REPLY IN THE AFFIRMATIVE TO HIS DESIRE TO ABSTAIN AND/OR RECEIVE IN THE FUTURE. LAST SEEN FOR TREATMENT: 10/09/2024 S: Pt. is a 79 yo alert WDWN CAUC MALE who IS SEEN for CONTINUED podiatric examination & CARE for treatment of a POST-OP PARTIAL NAIL AVULSION MEDIAL AND LATEERAL LEFT HALLUX NAIL BORDERS. PMH: Active problems - Computerized Problem List [...] THE DRESSING WHICH IS DRY & INTACT I NOTED MILD RUBOR MEDIALLY WITH A MILD SEROUS EXUDATE BUT NO EVIDENCE OF INFECTION. HE DOES RELATE SOME MILD PAIN MEDIAL NAIL BORDER. VASCULAR: MUSCULOSKELETAL: NEUROLOGICAL: ALL ABOVE EXAMS DEFERRED HAVING BEEN COMPLETED 3 DAYS PRIOR AND NO CHANGES NOTED. A: Clinical Impression is SATISAFCTORY HEALING OF THE SURGICAL SITES. P: Treatment consists of THE APPLICATION OF BACITRACIN AND KALTOSTAT AND HE SHALL CONTINUE WITH THE EVAPORATING DRESSING THROUGH THE WEEKEND THEN TO REMOVE THE DRESSING AND APPLY A TOPICAL ANTIBIOTIC AND BANDAID DURING THE DAY AND REMOVE AT NIGHT. All care rendered without complications & the patient is progressing well *DISCUSSED NEW PROTOCOLS AND CALLED LEV TODAY FOR RESCHEDULING I DISCUSSED THE FINDINGS & PLAN WITH PATIENT (UNCHANGED SINCE PREVIOUS VISIT) & PATIENT AGREES AND UNDERSTANDS PLAN-RECEIVED MIRROR NOTE: I SHALL BE ON VACATION NEXT WEEK I SUGGESTED THAT HE COME TO THE WALK-IN CLINIC TO SEE ONE OF THE NURSES PALLIATIVE MEDICINE PHYSICIAN AND THEY CAN CALL ME ON MY CELL PHONE IF NECESSARY. /mike/ JUSTINE ALLRED DPM [employer] OPERATOR Signed: 10/13/2024 11:33 JUSTINE ALLRED
--- OUTSIDE RECORDS SUMMARY | 2024-10-18 09:09 | XMS_ITS | Continuity of Care Document ---
Author Name [facility] Organization [facility] Care Team Providers Care Informatics Consultant Name Role Phone [facility] Unavailable Unavailable Problems Combined list of problems from Department of Defense and Veterans Affairs facilities. It does not include entries that were removed or entered in error. Problem Status Onset Date Problem Type Date of Resolution Comments Source [facility] Active Condition May 27, 2017 Entered By: LOUISE JALLOH Comment: improvedFeb 2020 Entered By: LOUISE JALLOH Comment: reviewedFeb 2021 Entered By: LOUISE JALLOH Comment: ReviewedJul 2022 Entered By: LOUISE JALLOH Comment: reviewedDec 2023 Entered By: LOUISE JALLOH Comment: Reviewed [facility] Chronic post-traumatic stress disorder [facility] 302787357) Active Condition Oct 28, 2017 Entered By: LOUISE JALLOH Comment: reviewedMay 30, 2018 Entered By: LOUISE JALLOH Comment: reviewedFeb 2020 Entered By: LOUISE JALLOH Comment: reviewedFeb 2021 Entered By: LOUISE JALLOH Comment: ReviewedJul 2022 Entered By: LOUISE JALLOH Comment: reviewedDec 2023 Entered By: LOUISE JALLOH Comment: Reviewed [facility] Colonoscopy Screening Active Condition Oct 21, 2018 Entered By: SANDY NAVA Comment: 04/2015 one polyp - repeat in 5 years (2020)Jan 16, 2022 Entered By: GISELL NICOLAS Comment: 12/31/21 [facility]. Diverticulosis and internal hemorrhoids no further screen needed due to age. [facility] Depression Active Condition May 27 018 Entered By: LOUISE JALLOH Comment: much improvedMay 30, 2018 Entered By: LOUISE JALLOH Comment: reviewedFeb 2020 Entered By: LOUISE JALLOH Comment: reviewedFeb 2021 Entered By: LOUISE JALLOH Comment: ReviewedJul 2022 Entered By: LOUISE JALLOH Comment: reviewedDec 2023 Entered By: LOUISE JALLOH Comment: Reviewed [facility] Erectile dysfunction (SNOMED CT 087724280) Active Condition Jan 19, 2018 Entered By: SANDY NAVA Comment: Prosthetic req submitted 01/19/18 for vacuum erectile device [facility] Exsmoker Active Condition Oct 30 21 Entered By: SANDY NAVA Comment: Smoked x 27 yrs - 2.5 PPD - AAA screen negative (ordered by Dr Ching) [facility] Full thickness rotator cuff tear Active Condition May 16 19 Entered By: SANDY NAVA Comment: right shoulder [facility] History of alcohol abuse Active Condition [facility] Hyperlipidemia Active Condition [facility] Insomnia Active Condition May 30 19 Entered By: LOUISE JALLOH Comment: reviewedFeb 2020 Entered By: LOUISE JALLOH Comment: reviewedFeb 2021 Entered By: LOUISE JALLOH Comment: ReviewedJul 2022 Entered By: LOUISE JALLOH Comment: reviewedDec 2023 Entered By: LOUISE JALLOH Comment: Reviewed [facility] Primary Care Physician Active Condition Sep 26, 2018 Entered By: SANDY NAVA Comment: Dr Chencho Ching - [facility] Seborrheic Dermatitis (SCT 51104414) Active Condition Sep 04, 2022 Entered By: LOUISE JALLOH Comment: reviewed [facility] Skin Disorder-Psoriasi s/Rosacea Active Condition [facility] Type 2 diabetes mellitus controlled by diet Active Condition Nov 26, 2021 Entered By: SANDY NAVA Comment: Dxed 10/2021 [facility] Adjustment Disorder with Mixed Anxiety and Depressed Mood (ICD-9-CM 309.28) Inactive Condition [facility]12/2011 [facility] CHR ALC DEP,CONTIN Inactive Condition 05/27/2017 May 27, 2017 Entered By: LOUISE JALLOH Comment: reports sobriety [facility] Depressive Disorder NOS * (ICD-9-CM 311./300.4) Inactive Condition 05/27/2017 [facility] r/o PTSD Inactive Condition 03/22/2012 [facility] Diagnosis: ICD-10-CM L60.0 Ingrowing nail Active Diagnosis [facility] Diagnosis: ICD-10-CM E11.9 Type 2 diabetes mellitus without complications Active Diagnosis [facility] Diagnosis: ICD-10-CM F43.12 Post-traumatic stress disorder, chronic Active Diagnosis [facility] Diagnosis: ICD-10-CM Z46.1 Encounter for fitting and adjustment of hearing aid Active Diagnosis [facility] Diagnosis: ICD-10-CM H90.3 Sensorineural hearing loss, bilateral Active Diagnosis [facility] Diagnosis: ICD-10-CM H61.22 Impacted cerumen, left ear Active Diagnosis [facility] Diagnosis: ICD-10-CM E78.5 Hyperlipidemia, unspecified Active Diagnosis [facility] Diagnosis: ICD-10-CM Z46.0 Encounter for fit/adjst of spectacles and contact lenses Active Diagnosis [facility] Diagnosis: ICD-10-CM H61.23 Impacted cerumen, bilateral Active Diagnosis [facility] Medications Combined list of outpatient medications from Department of Defense and [facility] Affairs facilities.Medications provided include 1) outpatient medications from the last 15 months, and 2) patient-reported medications. Medication Details Route Status Patient Instructions Prescription Expires Prescription Number Last Dispense Date Ordering Provider Order Date Order Qty Source CARBAMIDE PEROXIDE 6.5%/GLYCER IN SOLN,OTIC INSTILL 5 DROPS INTO THE AFFECTED EAR(S) TWICE DAILY FOR EAR WAX BLOCKAGE AURICU LAR (OTIC) 07/02/2024 [id number] LUPE NAVA SA 2024 15 [facility] SERTRALINE HCL 100MG TAB TAKE ONE AND ONE-HALF TABLETS BY MOUTH ONCE DAILY FOR PTSD AND DEPRESSI ON ORAL ACTIVE 02/18/2025 [id number] 5 Hernando JALLOH 2023 90 [facility] [facility] SERTRALINE HCL 100MG TAB TAKE ONE AND ONE-HALF TABLETS BY MOUTH ONCE DAILY FOR PTSD AND DEPRESSI ON ORAL DISCONT INUED 03/30/2024 [id number] Hernando JALLOH 2023 90 [place] TRAZODONE HCL 50MG TAB TAKE ONE AND ONE-HALF TABLETS BY MOUTH AT BEDTIME NEEDED FOR INSOMNIA ORAL ACTIVE 02/18/2025 [id number] 5 Hernando JALLOH 2023 45 [facility] [facility] TRAZODONE HCL 50MG TAB TAKE ONE AND ONE-HALF TABLETS BY MOUTH AT BEDTIME NEEDED FOR INSOMNIA ORAL DISCONT INUED 03/30/2024 [id number] 4 Hernando JALLOH 2023 45 [facility] Allergies, Adverse Reactions, Alerts Combined list of allergies from Department of Defense and Veterans Affairs facilities. It does not include entries that were removed or entered in error. Substance Category Reaction Severity Reaction type Status Date Reported Comments Source PENICILLIN Propensity to adverse reactions to drug (finding) Weakness present active 5 [facility] Immunizations Combined list of available immunizations from the Department of Defense and Veterans Affairs facilities. Immunization Series Date Given Administered By Site Reaction Lot Number CVX Code Drug Content Editor Status Comments Source TDAP 2018 115 complet ed Site: Right Deltoid [facility] IELD Results Combined list of recent chemistry, hematology and other laboratory results from Department of Defense and Veterans Affairs, ranging from 15 months to all on record, depending upon the facility. Order Name Results Value Reference Range Date Interpretation Specimen Comments Source HEMOGLOBI N A1C PANEL HEMOGLOBIN A1C/HEMOGLO BIN.TOTAL IN BLOOD 6.2 4.0 - 5.6 09/20 H Specimen Type: BLOOD Comment: Values obtained from A1C measurement s can vary. For atypical A1C assays, a reported value of 7.0 could actually be between 6.72 and 7.28 if measured by a reference method. A reported value of 9.0 could actually be between 8.73 and 9.27. Ref: [email or web address] Ordering Provider: SANDY NAVA Report Released Date/Time: Sep 29, 2023 02:30 PM Reporting Lab: [facility] [address] [facility] [address] Performing Lab: [facility] [address] [facility] [address] [facility] LIVER FUNCTION PROTEIN [MASS/VOLUM E] IN SERUM OR PLASMA 7.1 g/dL 6.4 - 8.3 09/20 Specimen Type: SERUM No comment entered. Ordering Provider: SANDY NAVA Report Released Date/Time: Sep 29, 2023 02:30 PM Reporting Lab: [facility] [address] Performing Lab: [facility] [address] [facility] LIVER FUNCTION ALBUMIN [MASS/VOLUM E] IN SERUM OR PLASMA BY BROMOCRESOL PURPLE (BCP) DYE BINDING METHOD 3.8 g/dL 3.2 - 4.6 09/20 Specimen Type: SERUM No comment entered. Ordering Provider: SANDY NAVA Report Released Date/Time: Sep 29, 2023 02:30 PM Reporting Lab: [facility] [address] Performing Lab: [facility] [address] [address] [facility] LIVER FUNCTION ALKALINE PHOSPHATASE [ENZYMATIC ACTIVITY/VO LUME] IN SERUM OR PLASMA 111 U/L 40 - 150 09/20 Specimen Type: SERUM No comment entered. Ordering Provider: SANDY NAVA Report Released Date/Time: Sep 29, 2023 02:30 PM Reporting Lab: [facility] [address] Performing Lab: [facility] [address] [place] [facility] [facility] LIVER FUNCTION ASPARTATE AMINOTRANSF ERASE [ENZYMATIC ACTIVITY/VO LUME] IN SERUM OR PLASMA BY WITH P-5'-P 20 U/L 5 - 34 09/20 Specimen Type: SERUM No comment entered. Ordering Provider: SANDY NAVA Report Released Date/Time: Sep 29, 2023 02:30 PM Reporting Lab: [facility] [place] [facility] [address] [facility] [address] Performing Lab: [facility] [place] [facility] [address] [facility] [address] [facility] [facility] LIVER FUNCTION ALANINE AMINOTRANSF ERASE [ENZYMATIC ACTIVITY/VO LUME] IN SERUM OR PLASMA BY WITH P-5'-P 14 U/L 0 - 55 09/20 Specimen Type: SERUM No comment entered. Ordering Provider: SANDY NAVA Report Released Date/Time: Sep 29, 2023 02:30 PM Reporting Lab: [facility] [place] [facility] [address] [facility] [address] Performing Lab: [facility] [place] [facility] [address] [facility] [address] [place] [facility] LIVER FUNCTION BILIRUBIN.T OTAL [MASS/VOLUM E] IN SERUM OR PLASMA 0.4 mg/dL 0.2 - 1.2 09/20 Specimen Type: SERUM No comment entered. Ordering Provider: SANDY NAVA Report Released Date/Time: Sep 29, 2023 02:30 PM Reporting Lab: [facility] [place] [facility] [address] [facility] [address] Performing Lab: [facility] [place] [address] [address] [place] [facility] MICROALBU MIN CREATININ E RATIO PANEL MICROALBUMI N/CREATININ E [MASS RATIO] IN URINE 16.3 mg/g 0 - 29.9 09/20 Specimen Type: URINE No comment entered. Ordering Provider: SANDY NAVA Report Released Date/Time: Sep 29, 2023 02:30 PM Reporting Lab: [facility] [place] [facility] [address] [facility] [address] Performing Lab: [facility] [place] [facility] [address] [facility] [address] [facility] [facility] MICROALBU MIN CREATININ E RATIO PANEL MICROALBUMI N [MASS/VOLUM E] IN URINE BY DETECTION LIMIT <= 1.0 MG/L 3.3 mg/dL 09/20 Specimen Type: URINE No comment entered. Ordering Provider: SANDY NAVA Report Released Date/Time: Sep 29, 2023 02:30 PM Reporting Lab: [facility] [place] [facility] [address] [facility] [address] Performing Lab: [facility] [place] [facility] [address] [facility] [address] [facility] MICROALBU MIN CREATININ E RATIO PANEL CREATININE [MASS/VOLUM E] IN URINE 202.56 mg/dL 63 - 166 09/20 H Specimen Type: URINE No comment entered. Ordering Provider: SANDY NAVA Report Released Date/Time: Sep 29, 2023 02:30 PM Reporting Lab: [facility] [place] [address] [address] Performing Lab: [facility] [place] [address] [address] [facility] LIPID PANEL FASTING CHOLESTEROL [MASS/VOLUM E] IN SERUM OR PLASMA 263 mg/dL 09/20 H Specimen Type: SERUM No comment entered. Ordering Provider: SANDY NAVA Report Released Date/Time: Sep 29, 2023 02:30 PM Reporting Lab: [facility] [place] [facility] [address] [facility] [address] Performing Lab: [facility] [place] [address] [address] [facility] [place] [facility] LIPID PANEL FASTING TRIGLYCERID E [MASS/VOLUM E] IN SERUM OR PLASMA 123 mg/dL 0 - 150 09/20 Specimen Type: SERUM No comment entered. Ordering Provider: SANDY NAVA Report Released Date/Time: Sep 29, 2023 02:30 PM Reporting Lab: [facility] [place] [facility] [address] [facility] [address] Performing Lab: [facility] [place] [facility] [address] [facility] [address] [facility] [place] [facility] LIPID PANEL FASTING CHOLESTEROL IN LDL [MASS/VOLUM E] IN SERUM OR PLASMA BY CALCULATION 185 mg/dL 0 - 129 09/20 H Specimen Type: SERUM No comment entered. Ordering Provider: SANDY NAVA Report Released Date/Time: Sep 29, 2023 02:30 PM Reporting Lab: [facility] [place] [facility] [address] [facility] [address] Performing Lab: [facility] [place] [facility] [address] [facility] [address] [facility] [place] [facility] LIPID PANEL FASTING CHOLESTEROL .TOTAL/CHOL ESTEROL IN HDL [MASS RATIO] IN SERUM OR PLASMA 5.0 09/20 Specimen Type: SERUM No comment entered. Ordering Provider: SANDY NAVA Report Released Date/Time: Sep 29, 2023 02:30 PM Reporting Lab: [facility] [place] [facility] [address] [facility] [address] Performing Lab: [facility] [place] [facility] [address] [facility] [address] [facility] [place] [facility] LIPID PANEL FASTING CHOLESTEROL IN HDL [MASS/VOLUM E] IN SERUM OR PLASMA 53 mg/dL 40 09/20 Specimen Type: SERUM No comment entered. Ordering Provider: SANDY NAVA Report Released Date/Time: Sep 29, 2023 02:30 PM Reporting Lab: [facility] [place] [facility] [address] [facility] [address] Performing Lab: [facility] [place] [facility] [address] [facility] [address] [facility] [place] [facility] BASIC METABOLIC PANEL (fasting) UREA NITROGEN [MASS/VOLUM E] IN SERUM OR PLASMA 20 mg/dL 8 - 26 09/20 Specimen Type: SERUM No comment entered. Ordering Provider: SANDY NAVA Report Released Date/Time: Sep 29, 2023 02:30 PM Reporting Lab: [facility] [place] [facility] [address] [facility] [address] Performing Lab: [facility] [place] [facility] [address] [facility] [address] [facility] BASIC METABOLIC PANEL (fasting) GLUCOSE [MASS/VOLUM E] IN SERUM OR PLASMA 128 mg/dL 65 - 100 09/20 H Specimen Type: SERUM No comment entered. Ordering Provider: SANDY NAVA Report Released Date/Time: Sep 29, 2023 02:30 PM Reporting Lab: [facility] [place] [facility] [address] [facility] [address] Performing Lab: [place] [facility] [place] [address] [address] [facility] BASIC METABOLIC PANEL (fasting) SODIUM [MOLES/VOLU ME] IN SERUM OR PLASMA 138 mmol/L 136 - 145 09/20 Specimen Type: SERUM No comment entered. Ordering Provider: SANDY NAVA Report Released Date/Time: Sep 29, 2023 02:30 PM Reporting Lab: [facility] [place] [facility] [address] [facility] [address] Performing Lab: [facility] [place] [address] [address] [facility] BASIC METABOLIC PANEL (fasting) POTASSIUM [MOLES/VOLU ME] IN SERUM OR PLASMA 3.9 mmol/L 3.5 - 5.1 09/20 Specimen Type: SERUM No comment entered. Ordering Provider: SANDY NAVA Report Released Date/Time: Sep 29, 2023 02:30 PM Reporting Lab: [facility] [place] [facility] [address] [facility] [address] Performing Lab: [facility] [place] [address] [address] [facility] BASIC METABOLIC PANEL (fasting) CHLORIDE [MOLES/VOLU ME] IN SERUM OR PLASMA 104 mmol/L 98 - 107 09/20 Specimen Type: SERUM No comment entered. Ordering Provider: SANDY NAVA Report Released Date/Time: Sep 29, 2023 02:30 PM Reporting Lab: [facility] [address] [facility] [address] Performing Lab: [facility]ITALRENCOM[facility] DOTHANTRN [facility]USE[address] [address] [facility]ITALREVER[facility]ERN [facility] BASIC METABOLIC PANEL (fasting) CARBON DIOXIDE, TOTAL [MOLES/VOLU ME] IN SERUM OR PLASMA 27 meq/L 23 - 31 09/20 Specimen Type: SERUM No comment entered. Ordering Provider: SANDY NAVA Report Released Date/Time: Sep 29, 2023 02:30 PM Reporting Lab: [facility] [address] [address] Performing Lab: [facility]ITALRENCOM[facility]OTHANTRN [facility] [address] [facility] BASIC METABOLIC PANEL (fasting) CALCIUM [MASS/VOLUM E] IN SERUM OR PLASMA 8.9 mg/dL 8.8 - 10 09/20 Specimen Type: SERUM No comment entered. Ordering Provider: SANDY NAVA Report Released Date/Time: Sep 29, 2023 02:30 PM Reporting Lab: [facility]ITALRENCOM[facility] DOTHANTRN [facility] [address] Performing Lab: [facility] TRN [facility] [address] [facility]ITALRE[facility]ERN [facility] BASIC METABOLIC PANEL (fasting) CREATININE [MASS/VOLUM E] IN SERUM OR PLASMA 1.40 mg/dL 0.72 - 1.25 09/20 H Specimen Type: SERUM No comment entered. Ordering Provider: SANDY NAVA Report Released Date/Time: Sep 29, 2023 02:30 PM Reporting Lab: [facility]ITALRENCOM[facility]OTHANTRN [facility] [address] Performing Lab: [facility] [place] [facility] [address] [facility] [address] [facility] [place] [facility] BASIC METABOLIC PANEL (fasting) GLOMERULAR FILTRATION RATE/1.73 SQ M.PREDICTED [VOLUME RATE/AREA] IN SERUM, PLASMA OR BLOOD BY CREATININE- BASED FORMULA (CKD-EPI 2020) 52 mL/min 60 09/20 L Specimen Type: SERUM No comment entered. Ordering Provider: SANDY NAVA Report Released Date/Time: Sep 29, 2023 02:30 PM Reporting Lab: [facility] [place] [facility] [address] [facility] [address] Performing Lab: [facility] [facility] [address] [facility] [address] [facility]ITALREVERGRE[facility] CENTERN [facility]CHUSE [facility] CBC LEUKOCYTES [#/VOLUME] IN BLOOD BY AUTOMATED COUNT 5.67 10*3/u L 4.50 - 11.00 09/20 Specimen Type: BLOOD No comment entered. Ordering Provider: SANDY NAVA Report Released Date/Time: Sep 29, 2023 02:30 PM Reporting Lab: [facility] [place] [facility] [address] [facility] [address] Performing Lab: [facility] [place] [facility] [address] [facility] [address] [facility]ITALRENCOM[facility]TRN [facility]CHUSE TS [facility] CBC ERYTHROCYTE S [#/VOLUME] IN BLOOD BY AUTOMATED COUNT 4.92 10*6/u L 4.23 - 5.66 09/20 Specimen Type: BLOOD No comment entered. Ordering Provider: SANDY NAVA Report Released Date/Time: Sep 29, 2023 02:30 PM Reporting Lab: [facility] [place] [facility] [address] [facility] [address] Performing Lab: [facility] [place] [facility] [address] [facility] [address] [facility] [place] [facility] CBC HEMOGLOBIN [MASS/VOLUM E] IN BLOOD 14.0 g/dL 12.8 - 17 09/20 Specimen Type: BLOOD No comment entered. Ordering Provider: SANDY NAVA Report Released Date/Time: Sep 29, 2023 02:30 PM Reporting Lab: [facility] [place] [facility] [address] [facility] [address] Performing Lab: [facility] [facility] [address] [facility] [address] [facility] [place] [facility] CBC HEMATOCRIT [VOLUME FRACTION] OF BLOOD BY AUTOMATED COUNT 43.0 39.2 - 50.4 09/20 Specimen Type: BLOOD No comment entered. Ordering Provider: SNADY NAVA Report Released Date/Time: Sep 29, 2023 02:30 PM Reporting Lab: [facility] [place] [facility] [address] [facility] [address] Performing Lab: [facility] [facility] [address] [facility] [address] [facility] [place] [facility] CBC MCV [ENTITIC VOLUME] BY AUTOMATED COUNT 87.4 fL 82 - 99 09/20 Specimen Type: BLOOD No comment entered. Ordering Provider: SANDY NAVA Report Released Date/Time: Sep 29, 2023 02:30 PM Reporting Lab: [facility] [facility] [address] [facility] [address] Performing Lab: [facility] [place] [facility] [address] [facility] [address] [facility] [place] [facility] CBC MCHC [MASS/VOLUM E] BY AUTOMATED COUNT 32.6 g/dL 30.8 - 35.1 09/20 Specimen Type: BLOOD No comment entered. Ordering Provider: SANDY NAVA Report Released Date/Time: Sep 29, 2023 02:30 PM Reporting Lab: [facility] [facility] [address] [facility] [address] Performing Lab: [facility] [facility] [address] [facility] [address] [facility] [place] [facility] CBC PLATELETS [#/VOLUME] IN BLOOD BY AUTOMATED COUNT 239 10*3/u L 140 - 360 09/20 Specimen Type: BLOOD No comment entered. Ordering Provider: SANDY NAVA Report Released Date/Time: Sep 29, 2023 02:30 PM Reporting Lab: [facility] [place] [facility] [address] [facility] [address] Performing Lab: [facility] [place] [facility] [address] [facility] [address] [facility] [place] [facility] CBC PLATELET MEAN VOLUME [ENTITIC VOLUME] IN BLOOD BY AUTOMATED COUNT 8.8 fL 9.2 - 12.4 09/20 L Specimen Type: BLOOD No comment entered. Ordering Provider: SANDY NAVA Report Released Date/Time: Sep 29, 2023 02:30 PM Reporting Lab: [facility] [place] [facility] [address] [facility] [address] Performing Lab: [facility] [place] [facility] [address] [facility] [address] [facility] [place] [facility] CBC ERYTHROCYTE DISTRIBUTIO N WIDTH [RATIO] BY AUTOMATED COUNT 13.3 12.0 - 16.0 09/20 Specimen Type: BLOOD No comment entered. Ordering Provider: SANDY NAVA Report Released Date/Time: Sep 29, 2023 02:30 PM Reporting Lab: [facility] [place] [facility] [address] [facility] [id number] Performing Lab: [facility] [place] [facility] [address] [facility] [phone] [facility] [facility] CBC MCH [ENTITIC MASS] BY AUTOMATED COUNT 28.5 pg 26.2 - 32.6 09/20 Specimen Type: BLOOD No comment entered. Ordering Provider: SANDY NAVA Report Released Date/Time: Sep 29, 2023 02:30 PM Reporting Lab: [facility] [place] [facility] [address] [facility] [address] Performing Lab: [facility] [place] [facility] [address] [facility] [address] [facility] TSH THYROTROPIN [UNITS/VOLU ME] IN SERUM OR PLASMA 1.37 u[IU]/ mL 0.35 - 5.00 09/23 Specimen Type: SERUM No comment entered. Ordering Provider: SANDY NAVA Report Released Date/Time: Sep 28, 2022 10:40 AM Reporting Lab: [facility] [address] [address] Performing Lab: [facility] [address] [facility] HEMOGLOBI N A1C PANEL HEMOGLOBIN A1C/HEMOGLO BIN.TOTAL IN BLOOD BY HPLC 5.6 4.0 - 5.6 09/23 Specimen Type: BLOOD Comment: Values obtained from A1C measurement s can vary. For atypical A1C assays, a reported value of 7.0 could actually be between 6.72 and 7.28 if measured by a reference method. A reported value of 9.0 could actually be between 8.73 and 9.27. Ref: http://www. ngsp.org/[place] Pdata.asp Ordering Provider: SANDY NAVA Report Released Date/Time: Sep 28, 2022 10:40 AM Reporting Lab: [facility] DOTHANTRN [address]SE[address] [address] Performing Lab: [facility] [address] [facility] LIPID PANEL FASTING CHOLESTEROL [MASS/VOLUM E] IN SERUM OR PLASMA 241 mg/dL 09/23 H Specimen Type: SERUM No comment entered. Ordering Provider: SANDY NAVA Report Released Date/Time: Sep 28, 2022 10:40 AM Reporting Lab: [facility] [address] Performing Lab: [facility] [address] [facility] LIPID PANEL FASTING TRIGLYCERID E [MASS/VOLUM E] IN SERUM OR PLASMA 92 mg/dL 0 - 150 09/23 Specimen Type: SERUM No comment entered. Ordering Provider: SANDY NAVA Report Released Date/Time: Sep 28, 2022 10:40 AM Reporting Lab: [facility] [address] Performing Lab: [facility] [place] [facility] [address] [facility] [address] [facility] LIPID PANEL FASTING CHOLESTEROL IN LDL [MASS/VOLUM E] IN SERUM OR PLASMA BY CALCULATION 175 mg/dL 0 - 129 09/23 H Specimen Type: SERUM No comment entered. Ordering Provider: SANDY NAVA Report Released Date/Time: Sep 28, 2022 10:40 AM Reporting Lab: [facility] [place] [facility] [address] [facility] [address] Performing Lab: [facility] [place] [facility] [address] [facility] [address] [place] [facility] LIPID PANEL FASTING CHOLESTEROL .TOTAL/CHOL ESTEROL IN HDL [MASS RATIO] IN SERUM OR PLASMA 5.0 09/23 Specimen Type: SERUM No comment entered. Ordering Provider: SANDY NAVA Report Released Date/Time: Sep 28, 2022 10:40 AM Reporting Lab: [facility] [place] [facility] [address] [facility] [address] Performing Lab: [facility] [place] [facility] [address] [facility] [address] [place] [facility] LIPID PANEL FASTING CHOLESTEROL IN HDL [MASS/VOLUM E] IN SERUM OR PLASMA 48 mg/dL 40 - 60 09/23 Specimen Type: SERUM No comment entered. Ordering Provider: SANDY NAVA Report Released Date/Time: Sep 28, 2022 10:40 AM Reporting Lab: [facility] [place] [facility] [address] [facility] [address] Performing Lab: [facility] [place] [facility] [address] [facility] [address] [place] [facility] LIVER FUNCTION PROTEIN [MASS/VOLUM E] IN SERUM OR PLASMA 6.7 g/dL 6.0 - 8.3 09/23 Specimen Type: SERUM No comment entered. Ordering Provider: SANDY NAVA Report Released Date/Time: Sep 28, 2022 10:40 AM Reporting Lab: [facility] [place] [facility] [address] [facility] [address] Performing Lab: [facility] [address] [facility] [address] [place] [facility] LIVER FUNCTION ALBUMIN [MASS/VOLUM E] IN SERUM OR PLASMA 3.3 g/dL 3.5 - 5.0 09/23 L Specimen Type: SERUM No comment entered. Ordering Provider: SANDY NAVA Report Released Date/Time: Sep 28, 2022 10:40 AM Reporting Lab: [facility] [place] [facility] [address] [facility] [address] Performing Lab: [facility] [place] [facility] [address] [facility] [address] [facility] LIVER FUNCTION ALKALINE PHOSPHATASE [ENZYMATIC ACTIVITY/VO LUME] IN SERUM OR PLASMA 81 U/L 40 - 150 09/23 Specimen Type: SERUM No comment entered. Ordering Provider: SANDY NAVA Report Released Date/Time: Sep 28, 2022 10:40 AM Reporting Lab: [facility] [place] [facility] [address] [facility] [address] Performing Lab: [facility] [place] [facility] [address] [facility] [address] [facility] LIVER FUNCTION ASPARTATE AMINOTRANSF ERASE [ENZYMATIC ACTIVITY/VO LUME] IN SERUM OR PLASMA 16 U/L 5 - 34 09/23 Specimen Type: SERUM No comment entered. Ordering Provider: SANDY NAVA Report Released Date/Time: Sep 28, 2022 10:40 AM Reporting Lab: [facility] [place] [facility] [address] [facility] [address] Performing Lab: [facility] [place] [facility] [address] [facility] [address] [facility] LIVER FUNCTION ALANINE AMINOTRANSF ERASE [ENZYMATIC ACTIVITY/VO LUME] IN SERUM OR PLASMA 11 U/L 09/23 Specimen Type: SERUM No comment entered. Ordering Provider: SANDY NAVA Report Released Date/Time: Sep 28, 2022 10:40 AM Reporting Lab: [facility] [address] [facility] [address] Performing Lab: [facility] [address] [facility] [address] [facility] LIVER FUNCTION BILIRUBIN.T OTAL [MASS/VOLUM E] IN SERUM OR PLASMA 0.5 mg/dL 0.2 - 1.2 09/23 Specimen Type: SERUM No comment entered. Ordering Provider: SANDY NAVA Report Released Date/Time: Sep 28, 2022 10:40 AM Reporting Lab: [facility] [address] [facility] [address] Performing Lab: [facility] [address] [facility] [address] [facility] Vital Signs Combined list of inpatient and outpatient Vital Signs from Department of Defense and Veterans Affairs, ranging from 12 months to all on record, depending upon the facility. Vital Sign Value Date Comments Source SYSTOLIC BLOOD PRESSURE 163 09/29/19 25 14:27:35 [facility] DIASTOLIC BLOOD PRESSURE 73 025 14:27:35 [facility] PULSE OXIMETRY 97 % 09/28/2024 14:27:35 [facility] WEIGHT 162.6 09/28/2024 14:27:35 [facility] BMI 22 kg/m2 09/28/2024 14:27:35 [facility] PAIN 0 09/28/2024 14:27:35 [facility] HEIGHT 72 09/28/2024 14:27:35 [facility] TEMPERATURE 98 09/28/2024 14:27:35 [facility] PULSE 89 09/28/2024 14:27:35 [facility] RESPIRATION 16 09/28/2024 14:27:35 [facility] Encounters Combined list of: 1) Encounters from Department of Veterans Affairs facilities going backup to the last 18 months, not all VA inpatient encounters are included; 2) Encounters from the Department of Defense facilities going backup to 280 months. Location Location Details Encounter Type Encounter Number Reason For Visit Attending Provider ADM Date DC Date Status Disposition Source [facility] OFFICE O/P EST LOW 20 MIN [id number] Diagnos is: ICD-10- CM L60.0 Luzma[place]i PEYMAN Weller F 04/21 [facility] Encounter [id number] 04/27 [facility] FIT SPECTACLES BIFOCAL [id number] Diagnos is: ICD-10- CM Z46.0 Encount er for fit/adj st of spectac les and contact lenses MARIZA HAYWOOD 05/04 [facility] HEARING AID REPAIR/MOD IFYING [id number] Diagnos is: ICD-10- CM Z46.1 Encount er for fitting and adjustm ent of hearing aid ABA CIFUENTES 05/04 [facility] En[facility] [id number] 05/16 [facility] En[facility] [id number] 05/17 [facility] En[facility] [id number] 05/18 [facility] FIT SPECTACLES BIFOCAL [id number] Diagnos is: ICD-10- CM Z46.0 Encount er for fit/adj st of spectac les and contact lenses CARLOS,A MOR J 05/20 [facility] [place] [place] LD OFF/OP EST MAY X REQ PHY/QHP [id number] Diagnos is: ICD-10- CM H61.23 Impacte d nestor holland NICH OLAS 05/25 [place] [facility] RPR&REFITG SPECT XCP APHAKIA [id number] Diagnos is: ICD-10- CM Z46.0 Encount er for fit/adj st of spectac les and contact lenses CARLOS,A MOR J 06/01 [facility] En[facility] [id number] 06/08 [facility] En[facility] [id number] 06/08 [facility] RPR&REFITG SPECT XCP APHAKIA [id number] Diagnos is: ICD-10- CM Z46.0 Encount er for fit/adj st of spectac les and contact lenses CARLOS,A MOR J 06/13 [facility] [place] OFFICE O/P EST LOW 20 MIN [id number] Diagnos is: ICD-10- CM L60.0 Luzma[place]i PEYMAN Weller 06/15 [place] [facility] En[facility] [id number] 06/16 [facility] En[facility] [id number] 07/12 [facility] En[facility] [id number] 07/27 [facility] En[facility] [id number] 07/28 [facility] [place] OFFICE O/P EST MOD 30 MIN [id number] Diagnos is: ICD-10- CM F43.12 Post-tr aumatic stress disorde r, chronic ST NE JALLOH G 07/29 [place] [facility] En[facility] [id number] 08/02 [facility] [place] OFFICE O/P EST LOW 20 MIN [id number] Diagnos is: ICD-10- CM L60.0 Ingrowi ng PEYMAN Cooper F 08/08 [place] [facility] Out[facility] Encounter [id number] 08/22 [facility] En[facility] [id number] 09/08 [facility] En[facility] [id number] 09/20 [facility] [place] OFF[place] O/P EST LOW 20 MIN [id number] Diagnos is: ICD-10- CM E78.5 Hyperli pidemia , unspeci fied BRANDON NAVA 09/28 [place] [facility] Encounter [id number] 10/03 [facility] [place] [place] OFFICE O/P EST LOW 20 MIN [id number] Diagnos is: ICD-10- CM L60.0 Ingrowi ng PEYMAN Cooper ES F 11/02 [place] [facility] Outpatient Encounter [id number] 1.11/16 [facility] [place] [place] OFF[place] O/P EST MOD 30 MIN [id number] Diagnos is: ICD-10- CM F43.12 Post-tr aumatic stress disorde r, chronic JALLOH,ST EPHEN G 11/22 [place] [facility] Outpatient Encounter [id number] 1.11/30 [facility] [place] Outpatient Encounter [id number] 1.12/20 [facility] [place] [place] OFF[place] O/P EST LOW 20 MIN [id number] Diagnos is: ICD-10- CM L60.0 Ingrowi ng PEYMAN Cooper ES F 12/21 [place] [facility] Outpatient Encounter [id number] 01/11 [facility] [place] [place] OFF[place] O/P EST MOD 30 MIN [id number] Diagnos is: ICD-10- CM L60.0 Ingrowi ng PEYMAN Cooper ES F 02/08 [place] OFF[place] O/P EST MOD 30 MIN [id number] Diagnos is: ICD-10- CM F43.12 Post-tr aumatic stress disorde r, chronic JALLOH,ST EPHEN G 02/17 [place] [facility] Outpatient Encounter [id number] 02/27 [facility] [place] [place] OFF[place] O/P EST LOW 20 MIN [id number] Diagnos is: ICD-10- CM L60.0 Ingrowi ng PEYMAN Cooper ES F 04/04 [place] [facility]P EST MOD 30 MIN [id number] Diagnos is: ICD-10- CM F43.12 Post-tr aumatic stress disorde r, chronic ST NE JALLOH G 05[facility] [place] [facility] EAR IMPRESSION [id number] Diagnos is: ICD-10- CM Z46.1 Encount er for fitting and adjustm ent of hearing aid LUKAS ANTHONY 06/02 [facility] [place] Outpatient Encounter [id number] 06/07 [facility] [place] [place] OFF[place] O/P EST LOW 20 MIN [id number] Diagnos is: ICD-10- CM L60.0 Ingrowi PEYMAN Weller ES F 06/13 [facility] EST MAY X REQ PHY/QHP [id number] Diagnos is: ICD-10- CM H61.22 Impacte d cerumen , left ear SISSY WHITMAN 06/13 [facility] En[facility] [id number] 06/27 [facility] HEARING AID XM&SLCTN BINAURL [id number] Diagnos is: ICD-10- CM H90.3 Sensori neural hearing loss, bilater al LUKAS ANTHONY 06/29 [facility] OFF[facility] O/P EST LOW 20 MIN [id number] Diagnos is: ICD-10- CM L60.0 Ingrowi ng PEYMAN Cooper ES F 07/25 [place] [facility] HEARING SERVICE [id number] Diagnos is: ICD-10- CM Z46.1 Encount er for fitting and adjustm ent of hearing aid LUKAS ANTHONY 07/27 [facility] [place] Outpatient Encounter [id number] 08/10 [facility] HEARING AID FITTING/CH ECKING [id number] Diagnos is: ICD-10- CM Z46.1 Encount er for fitting and adjustm ent of hearing aid ABA CIFUENTES 08/14 [facility] [place] [facility] OFFICE O/P EST MOD 30 MIN [id number] Diagnos is: ICD-10- CM F43.12 Post-tr aumatic stress disorde r, chronic ST NE JALLOH G 08/18 [facility] EST MOD 30 MIN [id number] Diagnos is: ICD-10- CM L60.0 Ingrowi PEYMAN Weller ES F 09/05 [place] [facility] Outpatient [facility]counter [id number] 09/13 [facility] Outpatient Encounter [id number] BRANDON NAVA DESMOND 09/20 [facility] [place] [place] OFFICE O/P EST LOW 20 MIN [id number] Diagnos is: ICD-10- CM E11.9 Type 2 diabete s mellitu s without complic ations BRANDON NAVA DESMOND 09/28 [facility] IE [facility] Outpatient Encounter [id number] 10/06 [facility] [place] OFFICE O/P EST MOD 30 MIN [id number] Diagnos is: ICD-10- CM L60.0 Ingrowi ng PEYMAN Cooper ES F 10/06 [facility] [place]ELD [place] POSTOP FOLLOW-UP VISIT [id number] Diagnos is: ICD-10- CM L60.0 Ingrowi ng PEYMAN Cooper ES F 10/09 [facility] IELD [place] POSTOP FOLLOW-UP VISIT [id number] Diagnos is: ICD-10- CM L60.0 Ingrowi PEYMAN Weller ES F 10/13 [facility] IE Social History Combined list of available smoking, tobacco, and other social history from Department of Defense and Veterans Affairs facilities. Social History Type Response Date Comment Source Tobacco smoking status [facility] VA-TOBACCO NEVER USED OTHER TYPE 06/13/2024 [place] History of tobacco use VA-TOBACCO USE FORMER CIGARETTES 06/13/2024 [place] History of tobacco use VA-TOBACCO FORMER USER 05/26/2023 [place] History of tobacco use [place] QUIT 15 YRS OR MORE 04/01/2022 [place] History of tobacco use VA-TOBACCO FORMER USER 04/04/2021 [place] History of tobacco use VA-TOBACCO FORMER USER 04/04/2020 [place] History of tobacco use VA-TOBACCO QUIT 15 YRS OR MORE 03/06/2019 [place] History of tobacco use [facility]-TOBACCO FORMER USER 09/24/2017 [place] History of tobacco use QUIT TOBACCO USE > 7 YEARS AGO 08/30/2017 [place] History of tobacco use QUIT TOBACCO USE > 7 YEARS AGO 06/29/2016 [place] History of tobacco use QUIT TOBACCO USE > 7 YEARS AGO 07/10/2015 quit 23 years ago [facility] History of tobacco use QUIT TOBACCO USE 1-7 YEARS AGO 04/18/2015 [place] History of tobacco use HISTORY OF SMOKING 11/16/2001 quit in 1973 [facility] History of tobacco use QUIT TOBACCO USE > 7 YEARS AGO 05/20/2001 [facility] Plan of Care List of future care activities from Department of [facility] Affairs facilities. Additional future care activities may be listed in the Assessment and Plan section. Date/Time Care Activity Care Activity Detail Facili ty 11/14/2024 AMBULATORY - MEDICINE AMBULATORY - MEDICI NE [facility]
--- NOTE | 2024-10-18 13:59 | A.OFFVIS_ITS ---
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 He is a patient Dr. Paiz. He is seen for the following urologic conditions - erectile dysfunction - prostate cancer - Stress incontinence - spermatocele Question of recurrent hydrocele on right side And previously undergone aspiration in the office On exam actually has spermatocele Minimal bother Discussed possible intervention At this time he would like observation Erectile dysfunction:? He presents today for for continued evaluation and management of erectile dysfunction. ? Symptoms have been present for/since since surgery. ? Procedure(s)/Diagnosis causing dysfunction include a radical prostatectomy 2012. ? Current treatment includes [place], VD. ? Treatment side effects include none. ? Prior therapies include oral medications - minimal impact ? , FER. ? At this time he experiences erections 12/08 are partial and insufficient for vaginal penetration, that undergo detumesence prior to penetration, CLEO 1-7 Severe ED. ? Nocturnal erections do not occur. ? Currently they are in a stable relationship. ? Recent labs included 12/08 , a testosterone level 301 ? 12/09 T 465.. Prostate cancer:? Low-grade prostate cancer prostatectomy 2012 ? Prostate cancer was diagnosed Dr Decker May 2012. ? Diagnosis was reached by needle biopsy, for elevated PSA, PSA at diagnosis - 9. ? The [place] grade is 3+3 = 6, at surgery. ? TNM Classification of Malignant Tumours (TNM) T2b. ? The [place] (NCCN) risk category is Low Risk (PSA< 10, Gl < 7, T1c). ? Initial therapy included Primary treatment, Prostatectomy (RRP/Robotic) ? , Additional treatment, Observation. ? Recent labs included a PSA (prostate-specific antigen) September 2015, < 0.1 ? 07/08 < 0.1, 11/08 < 0.1 ? 06/09 < 0.1, 12/09 < 0.1 ? 06/10 < 0.1, T 341, 12/10 < 0.1 T 368 ? 06/11 PSA < 0.1 T 490 12/12 <0.1, 01/12 <0.1 ? Associated conditions ? incontinence? No ? radiation cystitis? No ? pathologic fracture? No ? rectal urgency? No ? erectile dysfunction? Yes Some recovery now starting to happen ? hot flashes? No ? osteopenia? No ? hematuria? No ? Therapeutic plan: Continue with surveillance [facility] Medical History Decreased libido Erectile dysfunction Hydrocele Prostate cancer Surgical History H/O laminectomy H/O transurethral resection of prostate History of appendectomy History of arthroscopic knee surgery History of foot surgery History of prostate biopsy History of radical prostatectomy Review of Systems Const Denies chills and Denies fever(s) Card Reports no additional complaints and Denies syncope Resp Denies cough GI Denies abdominal pain and Denies heartburn Reports as per HPI and Denies change in libido Neuro Denies syncope Psych Denies change in libido Endo Denies change in libido Physical Exam Const General: cooperative, healthy appearing, comfortable and no acute distress Orientation/consciousness: patient oriented x3 HEENT Face and sinus: Yes normal facial exam Mouth: moist mucous membranes Neck Neck: Yes normal visual inspection, Yes full ROM and Yes trachea midline Chest Chest palpation & inspection: normal inspection of the chest Resp Effort & Inspection: normal respiratory effort, able to speak in complete sentences and no respiratory distress GI Inspection: Yes normal to inspection Back/Spine/Pelvis Cervical Spine: normal cervical lordosis Thoracic/Lumbar Spine: thoracic and lumbar spine normal to inspection Skin General skin exam: no rashes or lesions noted Neuro General: patient oriented x3, gait normal, tone normal and moves all extremities Extrem General: Yes normal to inspection and Yes capillary refill normal Assessment & Plan Assessment & Plan (1) Spermatocele: Code(s): N43.40 - Spermatocele of epididymis, unspecified Category: Medical (2) Prostate cancer: Comment: 2013 prostatectomy [place] 3 + 3 Code(s): C61 - Malignant neoplasm of prostate Category: Medical (3) Erectile dysfunction: Code(s): N52.9 - Male erectile dysfunction, unspecified Category: Medical Plan Twelve month follow-up Patient Instructions: This note is constructed using voice recognition software. While every effort has been made to ensure accuracy licensed aircraft maintenance engineer errors may have been included. Imaging studies, laboratory and physical exam results were discussed and reviewed in detail. No major barriers to patient understanding were identified. An opportunity to ask questions regarding the treatment plan was provided. All questions were answered. The patient expressed understanding and agreement with the above treatment plan. The patient is aware they should contact our office by phone for worsening of their current condition or the appearance of new urologic symptoms. Compliance is encouraged with any medications and followup testing that is ordered. It is a privilege to participate in the urologic care of your patient. If you have any questions or concerns regarding treatment for the above conditions, or other urologic issues, please do not hesitate to contact me. The office telephone contact is [phone]. Sincerely, Dr Cameron Arroyo MD, [facility] - Urology Compassionate Specialist Care for the Genitourinary System Coding Level of Care Code Est Pt Level 4 (19638) Diagnoses Spermatocele N43.40 Prostate cancer C61 Erectile dysfunction N52.9
== END 2024-10-18 14:55 | disposition home or self-care (01) ==
LOC: HO.HUSH 13:44
PROVIDERS: PCP Physician Assistant; Visit Provider Urology
DX: N43.40 Spermatocele of epididymis, unspecified (principal); C61 Malignant neoplasm of prostate; N52.9 Male erectile dysfunction, unspecified
CPT/HCPCS: 99214

== ENCOUNTER → 2024-10-18 13:44 | Outpatient (BNVA) | payer MEDICARE, OTHER, SELFPAY | PROVIDERS: PCP Physician Assistant; Visit Provider Urology | DX: C61 Malignant neoplasm of prostate (principal); N43.40 Spermatocele of epididymis, unspecified; N52.9 Male erectile dysfunction, unspecified | CPT/HCPCS: 99212 ==